=== PATIENT | male | born 1945 | race Caucasian/White ===

== ENCOUNTER 2021-03-27 09:08 | Day surgery (SDC) | payer OTHER ==
[2021-03-25 13:52] LABS: Absolute Lymphocytes (CBC) 1.6 K/uL (0.7-4.9); Basophils % 0.6 % (0-1.3); Hematocrit 40.5 % (39.6-49.0); Lymphocytes % 18.9 % (15.3-44.8); MPV 8.2 fL (7.6-11.3); RBC Red Blood Cell Count 4.66 M/uL (4.33-5.43)
[2021-03-25 14:04] LABS: Protime INR 1.01
--- NOTE | 2021-03-25 14:12 | RAD REPORT ---
EXAM DESCRIPTION: RAD - Chest Pa And Lat (2 Views) - 03/25/2021 1:59 pm CLINICAL HISTORY: pre-op procedure Chest pain. COMPARISON: ABDOMEN 1 VIEW KUB dated 07/13/2012 FINDINGS: The lungs are clear. The heart is normal in size. No displaced fractures. Mild aortic athe rosclerosis. IMPRESSION: No acute or concerning finding suspected.
[2021-03-25 14:58] LABS: Potassium 3.7 mmol/L (3.5-5.1)
--- NOTE | 2021-03-27 07:47 | EKG ---
Test Date: 2021-03-25 Test Time: 12:38:54 Spar Cap Beveler: JANETTE MEASUREMENT RESULTS: Intervals: Rate: 75 NE: 170 QRSD: 88 QT: 372 QTc: 415 [place]: P: 21 NE: 170 QRS: -18 T: -12 INTERPRETIVE STATEMENTS: Sinus rhythm with fusion complexes Otherwise normal ECG Compared to ECG 03/25/2021 12:36:05 Fusion complex(es) now present Right-axis deviation no longer present Electronically Signed On 03-27-21 07:44:25 CDT by Wil Hooks
[2021-03-27] MEDS ORDERED: NA CHLORIDE 0.9% 500 ML ONE (10:02)
[2021-03-27] MEDS ORDERED: LIDOCAINE 1% 20 ML MDV ONE (10:29)
[2021-03-27] MEDS ORDERED: HEPA 1000U/500MLS 2,000 UNIT/1,000 ML BAG IV ONE (10:29)
[2021-03-27] MEDS ORDERED: ATROPINE SULF 1 MG/10 ML SYR IV ONE (10:32)
[2021-03-27] MEDS ORDERED: FENTANYL CITR 100 MCG/2 ML ONE (10:32)
[2021-03-27] MEDS ORDERED: MIDAZOLAM HCL 2 MG/2 ML INJ ONE (10:32)
[2021-03-27] MEDS ORDERED: NA CHLORIDE 0.9% 0 ML ONE (10:32)
[2021-03-27 11:38] VITALS: TEMP 97
[2021-03-27] MEDS ORDERED: HEPARIN/D5W 25,000 UNIT/500 ML BAG IV SCH (14:00)
[2021-03-27 14:31] VITALS: O2SAT 99
[2021-03-27 14:46] VITALS: BP 99/55
--- NOTE | 2021-03-27 21:47 | OP ---
Surgeon: Wil Hooks MD Production Engine Repairer: Mr. Beto Hylton. 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 The patient was admitted for left heart catheterization and selective coronary arteriogram. Indication: coronary artery disease, positive stress test, unstable angina. Procedure In Detail: The patient was prepped and draped in the routine sterile fashion. Given Verse d for sedation. A 6-Niuean sheath introduced in the right common femoral artery successfully. Angio graphy there was normal. StarClose was used to close the procedure. Holly catheter left and right were used to cannulate the left main and right main respectively. He was codominant. The circumfle x had a mid 70% stenosis right after the OM. He had a 90% mid RCA. He had a 95% ostial left main wi th a lot of calcification. There were no complications. Blood Loss: 5 mL. Postoperative Diagnosis: Severe coronary artery disease. Plan: For CABG. Anesthesia: Total conscious sedation 45 minutes. The patient will remain in the hospital now for 2 hours. I am going to try to transfer him to [place] for bypass hopefully either today or Tuesday. VALENTIN/QUINN Voice ID: [id number] Report ID: [id number]
== END 2021-03-27 14:50 | disposition short-term general hospital (02) ==
LOC: CCL 09:08
DX: I25.110 Atherosclerotic heart disease of native coronary artery with unstable angina pectoris (principal); I65.23 Occlusion and stenosis of bilateral carotid arteries; I35.1 Nonrheumatic aortic (valve) insufficiency; I51.7 Cardiomegaly; I10 Essential (primary) hypertension; E78.2 Mixed hyperlipidemia; N40.0 Benign prostatic hyperplasia without lower urinary tract symptoms; Z20.822 Contact with and (suspected) exposure to COVID-19; Z88.8 Allergy status to other drugs, medicaments and biological substances; Z82.49 Family history of ischemic heart disease and other diseases of the circulatory system
CPT/HCPCS: 93005 ×2; 85025; 80048; 36415; 85610; 85730; 71046; 93454; U0003; C1893; J2250; J3010; J7040; J1644 ×2; J0583

== ENCOUNTER 2021-06-16 08:48 | Day surgery (SDC) | payer OTHER ==
[2021-06-12 11:15] LABS: Hematocrit 35.7 % (39.6-49.0); Lymphocytes % 21.8 % (15.3-44.8); MPV 7.1 fL (7.6-11.3); RBC Red Blood Cell Count 4.67 M/uL (4.33-5.43)
[2021-06-12 11:20] LABS: Protime INR 1.06
[2021-06-12 11:40] LABS: Potassium 4.2 mmol/L (3.5-5.1)
[2021-06-16] MEDS ORDERED: Ringers Lactate 1,000 ML IV ONE (09:12)
[2021-06-16] MEDS ORDERED: CEFAZOLIN/SWI 2gm 2 GM/20 ML SYR ONE (09:13)
[2021-06-16] MEDS ORDERED: ACETAMINOPHEN 500 MG TAB ONE (09:34)
[2021-06-16] MEDS ORDERED: ACETAMINOPHEN 500 MG TAB PO ONE (09:34)
[2021-06-16] MEDS ORDERED: MIDAZOLAM HCL 2 MG/2 ML INJ ONE (10:25)
[2021-06-16] MEDS ORDERED: dexAMETHasone 10 MG/ML VIAL ONE (10:25)
[2021-06-16] MEDS ORDERED: LIDOCAINE 1% MPF 5 ML VIAL ONE (10:25)
[2021-06-16] MEDS ORDERED: propofoL 200 MG/20 ML VIAL IV ONE (10:25)
[2021-06-16] MEDS ORDERED: FENTANYL CITR 100 MCG/2 ML ONE (10:29)
[2021-06-16] MEDS ORDERED: EPHEDRINE SULF 50 MG/ML VIAL ONE (11:21)
[2021-06-16] MEDS ORDERED: GENTAMICIN SULF 80 MG/2ML INJ ONE (11:28)
[2021-06-16] MEDS ORDERED: GENTAMICIN 100 MG/100 ML BAG 100 ML IV ONE (11:28)
[2021-06-16] MEDS ORDERED: PHENAZOPYRIDINE 100MG TAB PO ONE (12:18)
[2021-06-16] MEDS ORDERED: CODEINE 30MG/APAP 300MG TAB PO PRN (12:18)
--- NOTE | 2021-06-16 12:23 | P.OP ---
Preoperative diagnosis: BPH with LUTS and Acute Urinary Retention Postoperative diagnosis: same Primary procedure: Prostatic Urethral Lift/UroLift Secondary procedure: Cystoscopy Anesthesia: LMA general Estimated blood loss: <5cc Operative Technique: The patient was consented in the preoperative holding area before being transferred to the operative suite where general anesthesia was induced. He was given Ancef 2 g IV antimicrobial prophylaxis and pneumo boots were provided for DVT prophylaxis. He was placed in the high lithotomy position, padded and secured to the table appropriately. His genitalia were prepped using Hibiclens and draped in standard fashion. The case was begun using a 20-Yoruba specially designed cystoscope for the prostatic urethral lift as well as visual obturator to traverse the urethra and enter the bladder. The bladder was briefly surveyed, and no mucosal lesions, foreign bodies or stones were noted throughout. The prostatic urethral lumen was assessed and the previously noted lateral lobar hypertrophy left greater than right was again visualized. The visual obturator bridge was then replaced with a UroLift delivery device. The first treatment was placed on the patient's left side approximately 2.0 cm distal to the bladder neck. The distal tip of the delivery device was then angled laterally approximately 20 degrees to compress the lateral lobe. The trigger was pulled, thereby deploying a needle containing the implant through the prostate. There was no evidence of pelvic contact at this point. The needle was then retracted, allowing 1 end of the implant to be delivered to the capsular surface of the prostate. The implant was then tensioned to assure capsular seating and removal of slack monofilament. The device was then angled back toward the midline and slowly was advanced approximately 3-4 mm until cystoscopic verification of the monofilament being centered in the delivery bay. The urethral end piece was then affixed to the monofilament and thereby tailoring the size of the implant. The excess filament was then severed. The device was then readvanced into the bladder. The sheath was left in place and the delivery device was then replaced with the cystoscope and bridge, and the implant location and opening affect were confirmed cystoscopically. The procedure was then repeated again on the right side approximately 1.5 to 2 cm from the bladder neck, and implant was placed symmetrically there. I then turned my attention again to the left side distally more at the level of the verumontanum and an additional implant was placed there. I then turned my attention to the right side of the prostate and delivered an implant at the level of the verumontanum on the right side. The cystoscope was then readvanced into the bladder and the channel was surveyed. There was still some lateral lobar hypertrophy in the mid gland region, and so a fifth implant was placed in the mid gland on the left to address that tissue. An implant was placed on the right side in the mid gland contralateral. In the end, lateral lobar compression apically and within the mid zone of the prostate was excellent, and an open channel from the Veru through to the bladder neck was achieved. Final cystoscopy inspected the location and state of each implant and confirmed the presence of a continuous anterior channel. I then left the bladder full and placed an 18-Yoruba coude tipped catheter into his bladder with ease. 15 cc of sterile water was placed in the balloon. The catheter was connected to a floor bag, and the patient was taken out of the lithotomy position. He was then awakened from general anesthesia, transferred to a stretcher, and then transferred to the recovery room in good condition. Complications: None. Discharge Disposition: He should follow-up in the urology clinic on either or Tuesday, when I am next in the office, for active voiding trial in the morning. Because he had acute urinary retention and it is uncertain how well his bladder functions, we will want to ensure adequate voiding in his case. Subsequent follow up will be established in about 1 month's time to make an interval assessment of his symptomatology. Complications: None Drain(s): Other (Baker catheter) Implants: 6 Transferred to: Recovery Room Condition: Good
[2021-06-16 14:33] VITALS: O2SAT 100
[2021-06-16 14:34] VITALS: BP 147/71; TEMP 98
== END 2021-06-16 13:10 | disposition home or self-care (01) ==
LOC: OR 08:48
PROVIDERS: ATTEND Urology
PROC: 0T7D8DZ Dilation of Urethra with Intraluminal Device, Via Natural or Artificial Opening Endoscopic (ICD-10-PCS; principal; 2021-06-16 10:30)
DX: N40.1 Benign prostatic hyperplasia with lower urinary tract symptoms (principal); R33.9 Retention of urine, unspecified; Z20.822 Contact with and (suspected) exposure to COVID-19
CPT/HCPCS: 87088; 85025; 87086; 80048; 36415; 85610; 87077; 87186; 52441; 52442 ×4; U0003; J2704; J1580 ×2; J2250; J3010; J1100; J0690; J7120

== ENCOUNTER 2021-07-11 19:38 | Emergency (ER) | payer OTHER ==
--- OUTSIDE RECORDS SUMMARY | 2021-07-11 19:42 | XMS REPORT | Continuity of Care Document ---
:1945 Author Organization [facility] t Address [address] [place] [address] Care Team Providers Name Role Phone TODD CONROY Attending Clinician Unavailable CARLOS MANUEL APONTE Attending Clinician Unavailable FREDRICK NEAL Attending Clinician Unavailable A_José Attending Clinician Unavailable Alisia Attending Clinician Unavailable TODD CONROY Admitting Clinician Unavailable FREDRICK NEAL Admitting Clinician Unavailable A_José Admitting Clinician Unavailable Alisia Admitting Clinician Unavailable Payers Payer Name Policy Type Policy Number Effective Date Expiration Date Gaviota mancia [facility] [id number] 2020 00:00:00 [employer]ET[employer] [facility] [id number] 2021 SUPPLEMENTAL 00:00:00 [facility] [id number] [employer] (MEDICARE 00:00:00 REPLACEMENT/ADVANTAG E - HMO) A[employer] (MEDICARE [id number] SUPPLEMENT) Problems Condition Condition Condition Status Onset Resolution Last Treating Co mments Source Name Details Category Date Date Treatment Clinician Date Benign Benign Problem Active [facility] 9-08 da hypertensi Hypertensi 00:00: Me dical on on 00 Group Allergies, Adverse Reactions, Alerts Allergy Allergy Status Severity Reaction(s) Onset Inactive Treating Comm ents Source Name Type Date Date Clinician NO KNOWN Allergy Active [facility] Social History Smoking Status Start Date Stop Date Source Never Smoker [facility] Medications Ordered Filled Start Stop Current Ordering Indication Dosage Frequency Signature Comments Components Source Medication Medication Date Date Medication? Clinician (SIG) Name Name valsartan valsartan No valsartan [place] 80 mg 80 mg 80 mg da tablet TAKE tablet TAKE tablet Medical 1 TABLET BY 1 TABLET BY TAKE 1 Group MOUTH EVERY MOUTH EVERY TABLET BY DAY DAY MOUTH EVERY DAY amlodipine amlodipine No amlodipine [place] 10 mg 10 mg 10 mg da tablet TAKE tablet TAKE tablet Medical 1 TABLET BY 1 TABLET BY TAKE 1 Group MOUTH MOUTH TABLET BY EVERYDAY AT EVERYDAY AT MOUTH BEDTIME BEDTIME EVERYDAY AT BEDTIME hydrochloro hydrochloro No hydrochlor [facility] thiazide 25 thiazide 25 othiazide da mg tablet mg tablet 25 mg Medi shira TAKE ONE TAKE ONE tablet Group TABLET BY TABLET BY TAKE ONE MOUTH ONCE MOUTH ONCE TABLET BY A DAY. A DAY. MOUTH ONCE A DAY. metoprolol metoprolol No metoprolol [facility] succinate succinate succinate da ER 50 mg ER 50 mg ER 50 mg Med ical tablet,exte tablet,exte tablet,ext Group nded nded ended release 24 release 24 release 24 hr TAKE 1 hr TAKE 1 hr TAKE 1 TABLET BY TABLET BY TABLET BY MOUTH EVERY MOUTH EVERY MOUTH DAY DAY EVERY DAY tamsulosin tamsulosin No tamsulosin [facility] 0.4 mg 0.4 mg 0.4 mg da capsule capsule capsule Medica l TAKE TWO TAKE TWO TAKE TWO Jazzy up (2) (2) (2) CAPSULE(S) CAPSULE(S) CAPSULE(S) BY MOUTH BY MOUTH BY MOUTH ONCE A DAY. ONCE A DAY. ONCE A DAY. Immunizations Ordered Immunization Filled Immunization Date Status Commen ts Source Name Name COVID-19, mRNA, COVID-19, mRNA, 2020-08-01 Completed Almazan lara LNP-S, PF, 100 LNP-S, PF, 100 00:00:00 [facility]ica l Group mcg/0.5 mL dose mcg/0.5 mL dose COVID-19, mRNA, COVID-19, mRNA, 2020-07-04 Completed Almazan lara LNP-S, PF, 100 LNP-S, PF, 100 00:00:00 [facility]ica l Group mcg/0.5 mL dose mcg/0.5 mL dose Vital Signs Vital Name Observation Time Observation Value Comments Source HEIGHT 2021-04-14 09:16:00 185.4 cm WEIGHT 2021-04-14 09:16:00 86.637 kg WEIGHT 2021-04-03 10:37:00 85.446 kg WEIGHT 2021-04-02 03:35:00 85.322 kg WEIGHT 2021-04-01 06:00:00 90 kg HEIGHT 2021-03-27 16:45:00 185.4 cm WEIGHT 2021-03-27 16:45:00 81.647 kg WEIGHT 2021-04-03 10:37:00 85.446 kg WEIGHT 2021-04-02 03:35:00 85.322 kg WEIGHT 2021-04-01 06:00:00 90 kg HEIGHT 2021-03-27 16:45:00 185.4 cm WEIGHT 2021-03-27 16:45:00 81.647 kg BP Diastolic 2021-02-04 00:00:00 76 mm[Hg] [facility] Height 2021-02-04 00:00:00 70 [in_i] [facility] BMI (Body Mass 2021-02-04 00:00:00 27.5 kg/m2 [facility] BP Systolic 2021-02-04 00:00:00 131 mm[Hg] [facility] Body Weight 2021-02-04 00:00:00 3070.4 [oz_av] [facility] Procedures This patient has no known procedures. Plan of Care Planned Activity Planned Date Details Comments Source Future Appointment 2022-02-04 [facility] [address]; , [place] [address] Encounters Start End Encounter Admission Attending Care Care Encounter Source Date/Time Date/Time Type Type Clinicians Facility Department ID 2021-07-06 [facility] [id number] [facility]03[facility] 2021[facility]06-24 [facility] [id number] [facility] [address] 14[facility]34[facility]42 [facility] 2021-06-24 [facility] [id number] [facility] 14[facility]30[facility]15 [facility] 2021-06-24 [facility] [id number] [facility] [address] 14:23:10 [id number] [facility] 2021-06-24 [facility] [id number] [facility] 14:12:04 [id number] [facility] 2021-03-27 Inpatient MAURO CONROY [facility] Surgery [id number] [facility] 13:15:59 [facility] 2021-06-29 2021-06-29 ambulatory [facility] [id number] [facility] 2021-06-26 2021-06-26 ambulatory [facility] [id number] [facility] 2021-06-26 2021-06-26 ambulatory [facility] [id number] [facility] 2021-06-18 2021-06-18 ambulatory [facility] [id number] [facility] 2021-06-05 2021-06-05 ambulatory [facility] [id number] [facility] 2021-05-28 2021-05-28 ambulatory [facility] [id number] [facility] 2021-05-18 2021-05-18 ambulatory [facility] [id number] [facility] 2021-05-07 2021-05-07 ambulatory [facility] [id number] [facility] 2021-04-14 2021-04-14 Outpatient MAURO CONROY [facility] [id number] [facility] 09:09:29 09:09:29 [facility] 2021-03-27 2021-04-04 Inpatient [facility] Cardiology [id number] [facility] 16:02:00 10:43:00 NIMISHA 2021-03-27 2021-03-27 Outpatient [facility] [id number] 16[facility]02:00 [facility]59[facility] 2021-03-27 2021-03-27 [facility] [id number] 00:00:00 16:01:00 [facility] 2021-02-04 2021-02-04 Outpatient A_Byrd [facility] [id number] [facility] 09:20:00 09:20:00 0908 Medical Group 2021-02-04 2021-02-04 [facility] [id number] [facility] 09:05:00 09:05:00 0112 [facility] 2021-02-04 2021-02-04 Juan Pablo Neumann [facility] [place] - [id number] M [facility] 00:00:00 00:00:00 MD José: [address] [facility] - [address], [facility], [facility] [place] [address] , Ph. 2020-06-21 2020-06-21 Outpatient A_Byrd [facility] [id number] [facility] 12:03:00 12:03:00 0123 Medical [facility] 2020-06-21 2020-06-21 Outpatient A_Byrd [facility] [id number] [facility] 12:03:00 12:03:00 0208 Medical Group 2020-06-12 2020-06-12 Outpatient Obisesan_ad [facility] [id number] [facility] 07:14:00 07:14:00 ekunbi 20390 [facility] h Program Results Test Description Test Time Test Comments Results Result Comments Source BASIC METABOLIC PANEL 2021-04-04 07:28:19 Test Item Value Reference Range Interpretation Comme nts SODIUM (BEAKER) (test code 135 meq/L 136-145 L = 381) POTASSIUM (BEAKER) (test 3.3 meq/L 3.5-5.1 L code = 379) CHLORIDE (BEAKER) (test 104 meq/L 98-107 code = 382) CO2 (BEAKER) (test code = 22 meq/L 22-29 355) BLOOD UREA NITROGEN 23 mg/dL 7-21 H (BEAKER) (test code = 354) CREATININE (BEAKER) (test 0.92 mg/dL 0.57-1.25 code = 358) GLUCOSE RANDOM (BEAKER) 154 mg/dL 70-105 H (test code = 652) CALCIUM (BEAKER) (test code 7.9 mg/dL 8.4-10.2 L = 697) EGFR (BEAKER) (test code = 80 mL/min/1.73 sq m ESTIMATED GFR IS NOT 1092) ACCURATE CRE ATININE CLEARANCE IN IN EDICTING GLOMERULAR FILT RATION RATE. ESTIMATED GFR IS NOT APPLICABLE FOR DIALYSIS PATIENTS. Perishable Fruit Inspector ID - PIAYA LCBC W/PLT COUNT & AUTO [id number] 07:08:10 Test Item Value Reference Range Interpretation Comments WHITE BLOOD CELL COUNT (BEAKER) 8.1 K/ L 3.5-10.5 (test code = 775) RED BLOOD CELL COUNT (BEAKER) 2.65 M/ L 4.63-6.08 L (test code = 761) HEMOGLOBIN (BEAKER) (test code = 7.9 GM/DL 13.7-17.5 L 410) HEMATOCRIT (BEAKER) (test code = 24.1 % 40.1-51.0 L 411) MEAN CORPUSCULAR VOLUME (BEAKER) 90.9 fL 79.0-92.2 (test code = 753) MEAN CORPUSCULAR HEMOGLOBIN 29.8 pg 25.7-32.2 (BEAKER) (test code = 751) MEAN CORPUSCULAR HEMOGLOBIN CONC 32.8 GM/DL 32.3-36.5 (BEAKER) (test code = 752) RED CELL DISTRIBUTION WIDTH 14.5 % 11.6-14.4 H (BEAKER) (test code = 412) PLATELET COUNT (BEAKER) (test 205 K/CU MM 150-450 code = 756) MEAN PLATELET VOLUME (BEAKER) 10.3 fL 9.4-12.4 (test code = 754) NUCLEATED RED BLOOD CELLS 0 /100 WBC 0-0 (BEAKER) (test code = 413) NEUTROPHILS RELATIVE PERCENT 79 % (BEAKER) (test code = 429) LYMPHOCYTES RELATIVE PERCENT 11 % (BEAKER) (test code = 430) MONOCYTES RELATIVE PERCENT 7 % (BEAKER) (test code = 431) EOSINOPHILS RELATIVE PERCENT 2 % (BEAKER) (test code = 432) BASOPHILS RELATIVE PERCENT 1 % (BEAKER) (test code = 437) NEUTROPHILS ABSOLUTE COUNT 6.44 K/ L 1.78-5.38 H (BEAKER) (test code = 670) LYMPHOCYTES ABSOLUTE COUNT 0.86 K/ L 1.32-3.57 L (BEAKER) (test code = 414) MONOCYTES ABSOLUTE COUNT (BEAKER) 0.54 K/ L 0.30-0.82 (test code = 415) EOSINOPHILS ABSOLUTE COUNT 0.14 K/ L 0.04-0.54 (BEAKER) (test code = 416) BASOPHILS ABSOLUTE COUNT (BEAKER) 0.04 K/ L 0.01-0.08 (test code = 417) IMMATURE GRANULOCYTES-RELATIVE 1 % 0-1 PERCENT (BEAKER) (test code = 2801) RAD, CHEST, 1 VIEW, NON [id number] 06:56:00Reason for exam:->post CT surgeryShould this be performed at the bedside?->Yes [facility] 1945 Sex: MFINAL REPORT RAD, CHEST, 1 VIEW, NON DEPT INDICATION: post CT surgery COMPARISON: Prior day's exam FINDINGS: Portable frontal view of the chest. IMPRESSION: Support Lines: Sternotomy wires Lungs and pleura: Small left effusion and left basilar atelectasis No significantpneumothorax. Heart and mediastinum: Stable contours. Additional findings: None. Signed: Ramon Mcfarland MDReport Verified Date/Time: 04/04/2021 06:56:16 SARS-COV2/RT-PCR ([facility])2021-04-04 06:09:44 Test Item Value Reference Range Interpretation Comments SARS-COV2/RT-PCR (test code = Negative Negative [id number]) Negative result for this test determines that SARS-CoV-2 RNA was not present in the specimen above the Limit of Detection (LOD). However, Negative results do not preclude SARS-CoV-2 infection and should not be used as the sole basis for treatment or patient management decisions. Negative results must be combined with clinical observations, patient history, and epidemiological information. A false negative result may occur if a specimen is improperly collected, transported, or handled. A false negative result should be considered if patient's recent exposures or clinical presentation indicate that COVID-19 (SARS-CoV-2) is likely and diagnostic tests for other causes of illness are negative. Re-testing should be considered in cases of suspected false negatives.The limit of detection for this assay is 100 copies/mL.This SARS-CoV-2 test is a real-time RT_PCR test intended for the qualitative detection of nucleic acid from SARS-CoV-2 in a nasopharyngeal swab specimen collected from individuals suspected of COVID-19 by their healthcare provider.This test has not been Food and Drug Administration (FDA) cleared or approved. This is a modified version of an approved Emergency Use Authorization (EUA) and is in the process of review by the FDA. Once authorized by the FDA, the issued EUA will be effective until the declaration that circumstances exist justifying the authorization of the emergency use of in vitro diagnostic tests for detection and/or diagnosis of COVID-19 is terminated under Section 564(b)(2) of the Act or the EUA is revoked under Section 564(g) of the Act.Testing was performedusing the Zepeda SARS-CoV-2 assay.Fact Sheet for Healthcare Providers:https://www.Interfolio.zepeda/la/RT SARS-CoV-2 HCP Fact Sheet 51- 782035.pdfFact Sheet for Healthcare Patients:https://www.Interfolio.zepeda/la/RT SARS-CoV-2 Patient Fact Sheet EN 51-692932H5.pdfBASAINT ELIZAB[facility] [id number] 06:50:46 Test Item Value Reference Range Interpretation Comments SODIUM (BEAKER) 134 meq/L 136-145 L (test code = 381) POTASSIUM (BEAKER) 4.2 meq/L 3.5-5.1 (test code = 379) CHLORIDE (BEAKER) 104 meq/L 98-107 (test code = 382) CO2 (BEAKER) (test 21 meq/L 22-29 L code = 355) BLOOD UREA NITROGEN 22 mg/dL 7-21 H (BEAKER) (test code = 354) CREATININE (BEAKER) 0.96 mg/dL 0.57-1.25 (test code = 358) GLUCOSE RANDOM 112 mg/dL 70-105 H (BEAKER) (test code = 652) CALCIUM (BEAKER) 8.5 mg/dL 8.4-10.2 (test code = 697) EGFR (BEAKER) (test 76 mL/min/1.73 ESTIMA ZAINAB GFR IS code = 1092) sq m NOT ACCURATE CREATININE CLEARANCE IN PREDICTING GLOMERULAR FILTRATION RATE . ESTIMATED GFR I S NOT APPLICABLE FOR DIALYSIS PATIEN TS. Perishable Fruit Inspector ID - WARD WCBC W/PLT COUNT & AUTO [id number] 06:45:05 Test Item Value Reference Range Interpretation Comments WHITE BLOOD CELL COUNT (BEAKER) 11.3 K/ L 3.5-10.5 H (test code = 775) RED BLOOD CELL COUNT (BEAKER) 2.74 M/ L 4.63-6.08 L (test code = 761) HEMOGLOBIN (BEAKER) (test code = 8.3 GM/DL 13.7-17.5 L 410) HEMATOCRIT (BEAKER) (test code = 24.8 % 40.1-51.0 L 411) MEAN CORPUSCULAR VOLUME (BEAKER) 90.5 fL 79.0-92.2 (test code = 753) MEAN CORPUSCULAR HEMOGLOBIN 30.3 pg 25.7-32.2 (BEAKER) (test code = 751) MEAN CORPUSCULAR HEMOGLOBIN CONC 33.5 GM/DL 32.3-36.5 (BEAKER) (test code = 752) RED CELL DISTRIBUTION WIDTH 14.2 % 11.6-14.4 (BEAKER) (test code = 412) PLATELET COUNT (BEAKER) (test 183 K/CU MM 150-450 code = 756) MEAN PLATELET VOLUME (BEAKER) 10.3 fL 9.4-12.4 (test code = 754) NUCLEATED RED BLOOD CELLS 0 /100 WBC 0-0 (BEAKER) (test code = 413) NEUTROPHILS RELATIVE PERCENT 75 % (BEAKER) (test code = 429) LYMPHOCYTES RELATIVE PERCENT 14 % (BEAKER) (test code = 430) MONOCYTES RELATIVE PERCENT 9 % (BEAKER) (test code = 431) EOSINOPHILS RELATIVE PERCENT 1 % (BEAKER) (test code = 432) BASOPHILS RELATIVE PERCENT 0 % (BEAKER) (test code = 437) NEUTROPHILS ABSOLUTE COUNT 8.47 K/ L 1.78-5.38 H (BEAKER) (test code = 670) LYMPHOCYTES ABSOLUTE COUNT 1.53 K/ L 1.32-3.57 (BEAKER) (test code = 414) MONOCYTES ABSOLUTE COUNT (BEAKER) 0.98 K/ L 0.30-0.82 H (test code = 415) EOSINOPHILS ABSOLUTE COUNT 0.12 K/ L 0.04-0.54 (BEAKER) (test code = 416) BASOPHILS ABSOLUTE COUNT (BEAKER) 0.03 K/ L 0.01-0.08 (test code = 417) IMMATURE GRANULOCYTES-RELATIVE 1 % 0-1 PERCENT (BEAKER) (test code = 2801) CALCIUM, [id number] 06:34:06 Test Item Value Reference Range Interpretation Comments CALCIUM IONIZED (BEAKER) (test 1.10 mmol/L 1.12-1.27 L code = 698) PH, BLOOD (BEAKER) (test code = 7.40 1810) RAD, CHEST, 1 VIEW, NON [id number] 05:00:00Reason for exam:->post CT surgeryShould this be performed at the bedside?->Yes [facility] 1945 Sex: MFINAL REPORT CLINICAL INDICATION: Postop Comparison: 04/02/2021 The cardiomediastinal contours are stable. The lung volumes are mainly low. Left greater than right and left pleural opacities are similar to previous. There is no pneumothorax. A left chest tube has been removed. Signed: Ross Galdamez Verified Date/Time: 04/03/2021 05:00:14 RAD, CHEST, 1 VIEW, NON DEPT 2021-04-02 08:29:00Reason for exam:->post CT surgeryShould this be performed at the bedside?->Yes [facility] : 1945 Sex: MFINAL REPORT CLINICAL HISTORY: post CT surgery TECHNIQUE: 1 view of the chest. COMPARISON: 04/01/2021 IMPRESSION: The lines and tubes have been removed except for one left chest tube. There is a small left apical pneumothorax, new or increased from before. Mild bilateral lung opacities are unchanged. The cardiomediastinal silhouette is magnified by technique with sternotomywires. Signed: Michelle Stewart Verified Date/Time: 04/02/2021 08:29:40 Reading Location: [facility] Radiology Reading Room MAGNESIUM 2021-04-02 05:18:38 Test Item Value Reference Range Interpretation Comments MAGNESIUM (BEAKER) (test code = 2.0 mg/dL 1.6-2.6 627) Perishable Fruit Inspector ID Erik STOKES [id number] 05:18:38 Test Item Value Reference Range Interpretation Comments PHOSPHORUS (BEAKER) (test code = 2.4 mg/dL 2.3-4.7 604) Perishable Fruit Inspector ID - KIKE MBASIC METABOLIC [id number] 05:18:37 Test Item Value Reference Range Interpretation Comments SODIUM (BEAKER) 134 meq/L 136-145 L (test code = 381) POTASSIUM (BEAKER) 3.8 meq/L 3.5-5.1 (test code = 379) CHLORIDE (BEAKER) 105 meq/L 98-107 (test code = 382) CO2 (BEAKER) (test 19 meq/L 22-29 L code = 355) BLOOD UREA NITROGEN 18 mg/dL 7-21 (BEAKER) (test code = 354) CREATININE (BEAKER) 1.10 mg/dL 0.57-1.25 (test code = 358) GLUCOSE RANDOM 126 mg/dL 70-105 H (BEAKER) (test code = 652) CALCIUM (BEAKER) 8.3 mg/dL 8.4-10.2 L (test code = 697) EGFR (BEAKER) (test 65 mL/min/1.73 ESTIMA ZAINAB GFR IS code = 1092) sq m NOT ACCURATE CREATININE CLEARANCE IN PREDICTING GLOMERULAR FILTRATION RATE . ESTIMATED GFR I S NOT APPLICABLE FOR DIALYSIS PATIEN TS. Perishable Fruit Inspector ID Erik STOKES MCALCIUM, [id number] 05:12:48 Test Item Value Reference Range Interpretation Comments CALCIUM IONIZED (BEAKER) (test 1.07 mmol/L 1.12-1.27 L code = 698) PH, BLOOD (BEAKER) (test code = 7.41 1810) CBC W/PLT COUNT & AUTO [id number] 04:49:12 Test Item Value Reference Range Interpretation Comments WHITE BLOOD CELL COUNT (BEAKER) 12.3 K/ L 3.5-10.5 H (test code = 775) RED BLOOD CELL COUNT (BEAKER) 2.96 M/ L 4.63-6.08 L (test code = 761) HEMOGLOBIN (BEAKER) (test code = 8.9 GM/DL 13.7-17.5 L 410) HEMATOCRIT (BEAKER) (test code = 26.3 % 40.1-51.0 L 411) MEAN CORPUSCULAR VOLUME (BEAKER) 88.9 fL 79.0-92.2 (test code = 753) MEAN CORPUSCULAR HEMOGLOBIN 30.1 pg 25.7-32.2 (BEAKER) (test code = 751) MEAN CORPUSCULAR HEMOGLOBIN CONC 33.8 GM/DL 32.3-36.5 (BEAKER) (test code = 752) RED CELL DISTRIBUTION WIDTH 14.2 % 11.6-14.4 (BEAKER) (test code = 412) PLATELET COUNT (BEAKER) (test 167 K/CU MM 150-450 code = 756) MEAN PLATELET VOLUME (BEAKER) 10.2 fL 9.4-12.4 (test code = 754) NUCLEATED RED BLOOD CELLS 0 /100 WBC 0-0 (BEAKER) (test code = 413) NEUTROPHILS RELATIVE PERCENT 84 % (BEAKER) (test code = 429) LYMPHOCYTES RELATIVE PERCENT 6 % (BEAKER) (test code = 430) MONOCYTES RELATIVE PERCENT 9 % (BEAKER) (test code = 431) EOSINOPHILS RELATIVE PERCENT 0 % (BEAKER) (test code = 432) BASOPHILS RELATIVE PERCENT 0 % (BEAKER) (test code = 437) NEUTROPHILS ABSOLUTE COUNT 10.27 K/ L 1.78-5.38 H (BEAKER) (test code = 670) LYMPHOCYTES ABSOLUTE COUNT 0.71 K/ L 1.32-3.57 L (BEAKER) (test code = 414) MONOCYTES ABSOLUTE COUNT (BEAKER) 1.12 K/ L 0.30-0.82 H (test code = 415) EOSINOPHILS ABSOLUTE COUNT 0.01 K/ L 0.04-0.54 L (BEAKER) (test code = 416) BASOPHILS ABSOLUTE COUNT (BEAKER) 0.05 K/ L 0.01-0.08 (test code = 417) IMMATURE GRANULOCYTES-RELATIVE 1 % 0-1 PERCENT (BEAKER) (test code = 2801) MISCELLANEOUS LAB [id number] 08:24:47 Test Item Value Reference Range Interpretation Comments SCAN RESULT (test code = 6810855) See scanned [id number] 04:41:02 Test Item Value Reference Range Interpretation Comments PHOSPHORUS (BEAKER) (test code = 3.4 mg/dL 2.3-4.7 604) Perishable Fruit Inspector ID Erik STOKES MBASIC METABOLIC [id number] 04:41:01 Test Item Value Reference Range Interpretation Comments SODIUM (BEAKER) 134 meq/L 136-145 L (test code = 381) POTASSIUM (BEAKER) 4.2 meq/L 3.5-5.1 (test code = 379) CHLORIDE (BEAKER) 110 meq/L 98-107 H (test code = 382) CO2 (BEAKER) (test 16 meq/L 22-29 L code = 355) BLOOD UREA NITROGEN 15 mg/dL 7-21 (BEAKER) (test code = 354) CREATININE (BEAKER) 0.81 mg/dL 0.57-1.25 (test code = 358) GLUCOSE RANDOM 123 mg/dL 70-105 H (BEAKER) (test code = 652) CALCIUM (BEAKER) 8.0 mg/dL 8.4-10.2 L (test code = 697) EGFR (BEAKER) (test 93 mL/min/1.73 ESTIMA ZAINAB GFR IS code = 1092) sq m NOT ACCURATE CREATININE CLEARANCE IN PREDICTING GLOMERULAR FILTRATION RATE . ESTIMATED GFR I S NOT APPLICABLE FOR DIALYSIS PATIEN TS. Perishable Fruit Inspector ID - KIKE [id number] 04:41:01 Test Item Value Reference Range Interpretation Comments MAGNESIUM (BEAKER) (test code = 2.2 mg/dL 1.6-2.6 627) Perishable Fruit Inspector ID - KIKE MRAD, CHEST, 1 VIEW, NON [id number] 04:22:00while patient is intubated or has chest tubes.Reason for exam:->Status post CV SurgeryShould thisbe performed at the bedside?->Yes [facility] 1945 Sex: MFINAL REPORT RAD, CHEST, 1 VIEW, NON DEPT INDICATION: Status post CV Surgery COMPARISON: Prior day's exam FINDINGS: Portable frontal view of the chest. IMPRESSION: Support Lines: Interval extubation and removal the previously seen enteric tube. Otherwise unchanged support apparatus. Lungs and pleura: Decreased lung volumes with increased bandlike airspace opacities likely reflect worsening atelectasis. Small bilateral pleural effusions. No pneumothorax.Heart and mediastinum: Stable contours. Stable surgical changes.Additional findings: Gaseous distention of the large bowel the abdomen is incompletely characterized on this examination.. Signed: Fahad Guerrero Verified Date/Time: 04/01/2021 04:22:11 CBC W/PLT COUNT & AUTO [id number] 04:15:58 Test Item Value Reference Range Interpretation Comments WHITE BLOOD CELL COUNT (BEAKER) 10.5 K/ L 3.5-10.5 (test code = 775) RED BLOOD CELL COUNT (BEAKER) 3.03 M/ L 4.63-6.08 L (test code = 761) HEMOGLOBIN (BEAKER) (test code = 9.0 GM/DL 13.7-17.5 L 410) HEMATOCRIT (BEAKER) (test code = 27.4 % 40.1-51.0 L 411) MEAN CORPUSCULAR VOLUME (BEAKER) 90.4 fL 79.0-92.2 (test code = 753) MEAN CORPUSCULAR HEMOGLOBIN 29.7 pg 25.7-32.2 (BEAKER) (test code = 751) MEAN CORPUSCULAR HEMOGLOBIN CONC 32.8 GM/DL 32.3-36.5 (BEAKER) (test code = 752) RED CELL DISTRIBUTION WIDTH 14.2 % 11.6-14.4 (BEAKER) (test code = 412) PLATELET COUNT (BEAKER) (test 155 K/CU MM 150-450 code = 756) MEAN PLATELET VOLUME (BEAKER) 10.0 fL 9.4-12.4 (test code = 754) NUCLEATED RED BLOOD CELLS 0 /100 WBC 0-0 (BEAKER) (test code = 413) NEUTROPHILS RELATIVE PERCENT 78 % (BEAKER) (test code = 429) LYMPHOCYTES RELATIVE PERCENT 10 % (BEAKER) (test code = 430) MONOCYTES RELATIVE PERCENT 11 % (BEAKER) (test code = 431) EOSINOPHILS RELATIVE PERCENT 0 % (BEAKER) (test code = 432) BASOPHILS RELATIVE PERCENT 0 % (BEAKER) (test code = 437) NEUTROPHILS ABSOLUTE COUNT 8.15 K/ L 1.78-5.38 H (BEAKER) (test code = 670) LYMPHOCYTES ABSOLUTE COUNT 1.03 K/ L 1.32-3.57 L (BEAKER) (test code = 414) MONOCYTES ABSOLUTE COUNT (BEAKER) 1.16 K/ L 0.30-0.82 H (test code = 415) EOSINOPHILS ABSOLUTE COUNT 0.02 K/ L 0.04-0.54 L (BEAKER) (test code = 416) BASOPHILS ABSOLUTE COUNT (BEAKER) 0.02 K/ L 0.01-0.08 (test code = 417) IMMATURE GRANULOCYTES-RELATIVE 1 % 0-1 PERCENT (BEAKER) (test code = 2801) CALCIUM, [id number] 03:51:29 Test Item Value Reference Range Interpretation Comments CALCIUM IONIZED (BEAKER) (test 1.11 mmol/L 1.12-1.27 L code = 698) PH, BLOOD (BEAKER) (test code = 7.46 1810) BASIC METABOLIC [id number] 20:39:03 Test Item Value Reference Range Interpretation Comments SODIUM (BEAKER) 136 meq/L 136-145 (test code = 381) POTASSIUM (BEAKER) 4.2 meq/L 3.5-5.1 (test code = 379) CHLORIDE (BEAKER) 111 meq/L 98-107 H (test code = 382) CO2 (BEAKER) (test 16 meq/L 22-29 L code = 355) BLOOD UREA NITROGEN 15 mg/dL 7-21 (BEAKER) (test code = 354) CREATININE (BEAKER) 0.87 mg/dL 0.57-1.25 (test code = 358) GLUCOSE RANDOM 142 mg/dL 70-105 H (BEAKER) (test code = 652) CALCIUM (BEAKER) 7.6 mg/dL 8.4-10.2 L (test code = 697) EGFR (BEAKER) (test 86 mL/min/1.73 ESTIMA ZAINAB GFR IS code = 1092) sq m NOT ACCURATE CREATININE CLEARANCE IN PREDICTING GLOMERULAR FILTRATION RATE . ESTIMATED GFR I S NOT APPLICABLE FOR DIALYSIS PATIEN TS. Perishable Fruit Inspector ID - [id number] 20:35:11 Test Item Value Reference Range Interpretation Comments MAGNESIUM (BEAKER) (test code = 1.9 mg/dL 1.6-2.6 627) Perishable Fruit Inspector ID - ADMINPOCT-GLUCOSE [id number] 20:18:09 Test Item Value Reference Range Interpretation Comments POC-GLUCOSE METER 109 mg/dL 70-110 : Notified RN/MD: (BEAKER) (test code = TESTED AT [facility] 6720 1532) [facility], [address]: Perishable Fruit Inspector/Techni shanta ID = [id number] for Misa George CALCIUM, [id number] 20:13:59 Test Item Value Reference Range Interpretation Comments CALCIUM IONIZED (BEAKER) (test 1.08 mmol/L 1.12-1.27 L code = 698) PH, BLOOD (BEAKER) (test code = 7.42 1810) BLOOD GAS, [id number] 20:13:53 Test Item Value Reference Range Interpretation Comments PH ARTERIAL (BEAKER) (test code = 7.42 7.35-7.45 383) PCO2 ARTERIAL (BEAKER) (test code 31 mm Hg 35-45 L = 384) PO2 ARTERIAL (BEAKER) (test code 133 mm Hg 80-90 H = 385) O2 SATURATION ARTERIAL (BEAKER) 98.7 % 96.0-97.0 H (test code = 386) HCO3 ARTERIAL (BEAKER) (test code 19 mmol/L 21-29 L = 388) BASE EXCESS ARTERIAL (BEAKER) -4.5 mmol/L -2.0-3.0 L (test code = 387) PATIENT TEMPERATURE (BEAKER) 37.1 (test code = 1818) FIO2 (BEAKER) (test code = 1819) 36.0 RAD, CHEST, 1 VIEW, NON [id number] 13:35:00Reason for exam:->Status post CV Surgery post op day 0Should this be performed at the bedside?->Yes [facility] 1945 Sex: MFINAL REPORT CLINICAL HISTORY: Status post CV Surgery post op day 0 TECHNIQUE: 1 view of the chest. COMPARISON: 03/27/2021 IMPRESSION: The patient is status post median sternotomy with an endotracheal tube at the clavicles, a right central line at the cavoatrial junction, a nasogastric tube in the stomach, and left chest tubes. There is no pneumothorax. There is left perihilar and lower lung consolidation. There are no significant effusions. Signed: Michelle Stewart MDReport Verified Date/Time: 03/31/2021 13:35:56 Reading Location: [facility] Radiology Reading Room BLOOD GAS, [id number] 13:26:42 Test Item Value Reference Range Interpretation Comments PH ARTERIAL (BEAKER) (test code = 7.37 7.35-7.45 383) PCO2 ARTERIAL (BEAKER) (test code 36 mm Hg 35-45 = 384) PO2 ARTERIAL (BEAKER) (test code 146 mm Hg 80-90 H = 385) O2 SATURATION ARTERIAL (BEAKER) 98.9 % 96.0-97.0 H (test code = 386) HCO3 ARTERIAL (BEAKER) (test code 21 mmol/L 21-29 = 388) BASE EXCESS ARTERIAL (BEAKER) -4.5 mmol/L -2.0-3.0 L (test code = 387) PATIENT TEMPERATURE (BEAKER) 36.2 (test code = 1818) FIO2 (BEAKER) (test code = 1819) 40.0 [id number] 12:48:29 Test Item Value Reference Range Interpretation Comments PHOSPHORUS (BEAKER) (test code = 3.5 mg/dL 2.3-4.7 604) Perishable Fruit Inspector ID - KIKE [id number] 12:48:28 Test Item Value Reference Range Interpretation Comments MAGNESIUM (BEAKER) (test code = 2.0 mg/dL 1.6-2.6 627) Perishable Fruit Inspector ID - KIKE MBASIC METABOLIC [id number] 12:03:42 Test Item Value Reference Range Interpretation Comments SODIUM (BEAKER) 137 meq/L 136-145 (test code = 381) POTASSIUM (BEAKER) 4.8 meq/L 3.5-5.1 Specimen slightly (test code = 379) hemolyzed CHLORIDE (BEAKER) 113 meq/L 98-107 H (test code = 382) CO2 (BEAKER) (test 21 meq/L 22-29 L code = 355) BLOOD UREA NITROGEN 17 mg/dL 7-21 (BEAKER) (test code = 354) CREATININE (BEAKER) 0.77 mg/dL 0.57-1.25 Specimen slightly (test code = 358) hemolyzed GLUCOSE RANDOM 125 mg/dL 70-105 H (BEAKER) (test code = 652) CALCIUM (BEAKER) 8.3 mg/dL 8.4-10.2 L (test code = 697) EGFR (BEAKER) (test 98 mL/min/1.73 ESTIMA ZAINAB GFR IS code = 1092) sq m NOT ACCURATE CREATININE CLEARANCE IN PREDICTING GLOMERULAR FILTRATION RATE . ESTIMATED GFR I S NOT APPLICABLE FOR DIALYSIS PATIEN TS. Perishable Fruit Inspector ID - KIKE [id number] 12:03:41 Test Item Value Reference Range Interpretation Comments PHOSPHORUS (BEAKER) 2.5 mg/dL 2.3-4.7 Specimen slightly (test code = 604) hemolyzed Perishable Fruit Inspector ID - KIKE [id number] 12:03:39 Test Item Value Reference Range Interpretation Comments MAGNESIUM (BEAKER) 1.7 mg/dL 1.6-2.6 Specimen slightly (test code = 627) hemolyzed Perishable Fruit Inspector ID - KIKE MLACTIC ACID, [id number] 11:58:52 Test Item Value Reference Range Interpretation Comments LACTATE BLOOD 0.8 mmol/L 0.5-2.2 Specimen sligh tly ARTERIAL (2) (BEAKER) hemoly zed (test code = 2874) Perishable Fruit Inspector ID - KIKE [id number] 11:47:11 Test Item Value Reference Range Interpretation Comments PARTIAL THROMBOPLASTIN TIME 39.4 seconds 22.5-36.0 H (BEAKER) (test code = 760) [id number] 11:47:10 Test Item Value Reference Range Interpretation Comments FIBRINOGEN LEVEL (BEAKER) (test 200 mg/dl 225-434 L code = 658) PROTHROMBIN [id number] 11:46:29 Test Item Value Reference Range Interpretation Comments PROTIME (BEAKER) 19.5 seconds 11.9-14.2 H (test code = 759) INR (BEAKER) (test 1.67 See_Comment [Automat ed message] code = 370) The system [employer] generated this result transmitted ref erence range: <=5.90. The reference range was not used to int erpret this result as normal/abnormal . RECOMMENDED COUMADIN/WARFARIN INR THERAPY RANGESSTANDARD DOSE: 2.0 - 3.0 Includes: PROPHYLAXIS forvenous thrombosis, systemic embolization; TREATMENT for venous thrombosis and/or pulmonary embolus.HIGH RISK: Target INR is 2.5-3.5 for patients with mechanical heart valves.CBC W/PLT COUNT & AUTO DIFFERENTIAL 2021-03-31 11:41:37 Test Item Value Reference Range Interpretation Comments WHITE BLOOD CELL COUNT (BEAKER) 16.3 K/ L 3.5-10.5 H (test code = 775) RED BLOOD CELL COUNT (BEAKER) 2.98 M/ L 4.63-6.08 L (test code = 761) HEMOGLOBIN (BEAKER) (test code = 9.1 GM/DL 13.7-17.5 L 410) HEMATOCRIT (BEAKER) (test code = 26.4 % 40.1-51.0 L 411) MEAN CORPUSCULAR VOLUME (BEAKER) 88.6 fL 79.0-92.2 (test code = 753) MEAN CORPUSCULAR HEMOGLOBIN 30.5 pg 25.7-32.2 (BEAKER) (test code = 751) MEAN CORPUSCULAR HEMOGLOBIN CONC 34.5 GM/DL 32.3-36.5 (BEAKER) (test code = 752) RED CELL DISTRIBUTION WIDTH 13.8 % 11.6-14.4 (BEAKER) (test code = 412) PLATELET COUNT (BEAKER) (test 117 K/CU MM 150-450 L code = 756) MEAN PLATELET VOLUME (BEAKER) 9.5 fL 9.4-12.4 (test code = 754) NUCLEATED RED BLOOD CELLS 0 /100 WBC 0-0 (BEAKER) (test code = 413) NEUTROPHILS RELATIVE PERCENT 82 % (BEAKER) (test code = 429) LYMPHOCYTES RELATIVE PERCENT 9 % (BEAKER) (test code = 430) MONOCYTES RELATIVE PERCENT 7 % (BEAKER) (test code = 431) EOSINOPHILS RELATIVE PERCENT 1 % (BEAKER) (test code = 432) BASOPHILS RELATIVE PERCENT 0 % (BEAKER) (test code = 437) NEUTROPHILS ABSOLUTE COUNT 13.34 K/ L 1.78-5.38 H (BEAKER) (test code = 670) LYMPHOCYTES ABSOLUTE COUNT 1.43 K/ L 1.32-3.57 (BEAKER) (test code = 414) MONOCYTES ABSOLUTE COUNT (BEAKER) 1.06 K/ L 0.30-0.82 H (test code = 415) EOSINOPHILS ABSOLUTE COUNT 0.17 K/ L 0.04-0.54 (BEAKER) (test code = 416) BASOPHILS ABSOLUTE COUNT (BEAKER) 0.05 K/ L 0.01-0.08 (test code = 417) IMMATURE GRANULOCYTES-RELATIVE 1 % 0-1 PERCENT (BEAKER) (test code = 2801) HGB/HCT (H&H) - STAT [id number] 11:40:15 Test Item Value Reference Range Interpretation Comments HEMOGLOBIN (BEAKER) (test code = 9.6 GM/DL 13.0-16.8 L 410) HEMATOCRIT (BEAKER) (test code = 28.0 % 40.0-50.0 L 411) GLUCOSE-STAT [id number] 11:40:14 Test Item Value Reference Range Interpretation Comments GLUCOSE RANDOM (BEAKER) (test code 124 mg/dL 70-110 H = 652) BLOOD GAS, [id number] 11:40:13 Test Item Value Reference Range Interpretation Comments PH ARTERIAL (BEAKER) (test code = 7.40 7.35-7.45 383) PCO2 ARTERIAL (BEAKER) (test code 36 mm Hg 35-45 = 384) PO2 ARTERIAL (BEAKER) (test code 177 mm Hg 80-90 H = 385) O2 SATURATION ARTERIAL (BEAKER) 99.2 % 96.0-97.0 H (test code = 386) HCO3 ARTERIAL (BEAKER) (test code 22 mmol/L 21-29 = 388) BASE EXCESS ARTERIAL (BEAKER) -2.6 mmol/L -2.0-3.0 L (test code = 387) PATIENT TEMPERATURE (BEAKER) 36.1 (test code = 1818) FIO2 (BEAKER) (test code = 1819) 100.0 POTASSIUM-STAT [id number] 11:39:45 Test Item Value Reference Range Interpretation Comments POTASSIUM (BEAKER) (test code = 4.7 meq/L 3.6-5.5 379) SODIUM NA-STAT [id number] 11:39:44 Test Item Value Reference Range Interpretation Comments SODIUM (BEAKER) (test code = 381) 138 meq/L 136-145 CALCIUM, [id number] 11:39:07 Test Item Value Reference Range Interpretation Comments CALCIUM IONIZED (BEAKER) (test 1.18 mmol/L 1.12-1.27 code = 698) PH, BLOOD (BEAKER) (test code = 7.39 1810) OXYGEN SATURATION, [id number] 11:38:44 Test Item Value Reference Range Interpretation Comments O2 SATURATION (MEASURED) (BEAKER) 77.8 % (test code = 1455) [id number] 11:08:20 Test Item Value Reference Range Interpretation Comments ACTIVATED CLOTTING TIME 125 sec : 74 -137 seconds, (BEAKER) (test code = Bradly ne: TESTED AT 441) [address], [facility] 30: Perishable Fruit Inspector/Techni shanta ID = [id number] for ROMINA ALLISON [id number] 11:08:19 Test Item Value Reference Range Interpretation Comments ACTIVATED CLOTTING TIME 142 sec : 74 -137 seconds, (BEAKER) (test code = Bradly ne: TESTED AT 441) [address], [facility] 30: Perishable Fruit Inspector/Techni shanta ID = [id number] for BE ROMINA AUSTIN [id number] 11:08:18 Test Item Value Reference Range Interpretation Comments ACTIVATED CLOTTING TIME 499 sec : 74 -137 seconds, (BEAKER) (test code = Baseli ne: TESTED AT 441) [address], [facility] 30: Perishable Fruit Inspector/Techni shanta ID = [id number] for BE ROMINA AUSTIN [id number] 11:08:18 Test Item Value Reference Range Interpretation Comments ACTIVATED CLOTTING TIME 472 sec : 74 -137 seconds, (BEAKER) (test code = Baseli ne: TESTED AT 441) [address], [facility] 30: Perishable Fruit Inspector/Techni shanta ID = [id number] for BE ROMINA AUSTIN [id number] 11:07:42 Test Item Value Reference Range Interpretation Comments ACTIVATED CLOTTING TIME 433 sec : 74 -137 seconds, (BEAKER) (test code = Baseli ne: TESTED AT 441) [address], [facility] 30: Perishable Fruit Inspector/Techni shanta ID = [id number] for BE ROMINA AUSTIN [id number] 11:07:41 Test Item Value Reference Range Interpretation Comments ACTIVATED CLOTTING TIME 411 sec : 74 -137 seconds, (BEAKER) (test code = Baseli ne: TESTED AT 441) [address], [facility] 30: Perishable Fruit Inspector/Techni shanta ID = [id number] for ROMINA ALLISON CALCIUM, [id number] 10:51:07 Test Item Value Reference Range Interpretation Comments CALCIUM IONIZED (BEAKER) (test 1.18 mmol/L 1.12-1.27 code = 698) PH, BLOOD (BEAKER) (test code = 7.34 1810) GLUCOSE-STAT [id number] 10:51:05 Test Item Value Reference Range Interpretation Comments GLUCOSE RANDOM (BEAKER) (test code 145 mg/dL 70-110 H = 652) HGB/HCT (H&H) - STAT [id number] 10:51:05 Test Item Value Reference Range Interpretation Comments HEMOGLOBIN (BEAKER) (test code = 9.1 GM/DL 13.0-16.8 L 410) HEMATOCRIT (BEAKER) (test code = 27.0 % 40.0-50.0 L 411) BLOOD GAS, [id number] 10:51:04 Test Item Value Reference Range Interpretation Comments PH ARTERIAL (BEAKER) (test code = 7.38 7.35-7.45 383) PCO2 ARTERIAL (BEAKER) (test code 40 mm Hg 35-45 = 384) PO2 ARTERIAL (BEAKER) (test code 292 mm Hg 80-90 H = 385) O2 SATURATION ARTERIAL (BEAKER) 99.7 % 96.0-97.0 H (test code = 386) HCO3 ARTERIAL (BEAKER) (test code 24 mmol/L 21-29 = 388) BASE EXCESS ARTERIAL (BEAKER) -2.1 mmol/L -2.0-3.0 L (test code = 387) PATIENT TEMPERATURE (BEAKER) 34.6 (test code = 1818) FIO2 (BEAKER) (test code = 1819) 97.0 SODIUM NA-STAT [id number] 10:50:47 Test Item Value Reference Range Interpretation Comments SODIUM (BEAKER) (test code = 381) 138 meq/L 136-145 POTASSIUM-STAT [id number] 10:50:47 Test Item Value Reference Range Interpretation Comments POTASSIUM (BEAKER) (test code = 5.1 meq/L 3.6-5.5 379) GLUCOSE-STAT [id number] 10:17:52 Test Item Value Reference Range Interpretation Comments GLUCOSE RANDOM (BEAKER) (test code 159 mg/dL 70-110 H = 652) HGB/HCT (H&H) - STAT [id number] 10:17:52 Test Item Value Reference Range Interpretation Comments HEMOGLOBIN (BEAKER) (test code = 8.4 GM/DL 13.0-16.8 L 410) HEMATOCRIT (BEAKER) (test code = 25.0 % 40.0-50.0 L 411) BLOOD GAS, [id number] 10:17:51 Test Item Value Reference Range Interpretation Comments PH ARTERIAL (BEAKER) (test code = 7.31 7.35-7.45 L 383) PCO2 ARTERIAL (BEAKER) (test code 41 mm Hg 35-45 = 384) PO2 ARTERIAL (BEAKER) (test code 309 mm Hg 80-90 H = 385) O2 SATURATION ARTERIAL (BEAKER) 99.7 % 96.0-97.0 H (test code = 386) HCO3 ARTERIAL (BEAKER) (test code 21 mmol/L 21-29 = 388) BASE EXCESS ARTERIAL (BEAKER) -5.6 mmol/L -2.0-3.0 L (test code = 387) PATIENT TEMPERATURE (BEAKER) 35.0 (test code = 1818) FIO2 (BEAKER) (test code = 1819) 100.0 CALCIUM, [id number] 10:17:50 Test Item Value Reference Range Interpretation Comments CALCIUM IONIZED (BEAKER) (test 1.31 mmol/L 1.12-1.27 H code = 698) PH, BLOOD (BEAKER) (test code = 7.28 1810) POTASSIUM-STAT [id number] 10:16:53 Test Item Value Reference Range Interpretation Comments POTASSIUM (BEAKER) (test code = 5.5 meq/L 3.6-5.5 379) SODIUM NA-STAT [id number] 10:16:52 Test Item Value Reference Range Interpretation Comments SODIUM (BEAKER) (test code = 381) 135 meq/L 136-145 L POTASSIUM-STAT [id number] 09:39:25 Test Item Value Reference Range Interpretation Comments POTASSIUM (BEAKER) (test code = 6.4 meq/L 3.6-5.5 HH 379) HGB/HCT (H&H) - STAT [id number] 09:37:23 Test Item Value Reference Range Interpretation Comments HEMOGLOBIN (BEAKER) (test code = 9.8 GM/DL 13.0-16.8 L 410) HEMATOCRIT (BEAKER) (test code = 29.0 % 40.0-50.0 L 411) BLOOD GAS, [id number] 09:37:22 Test Item Value Reference Range Interpretation Comments PH ARTERIAL (BEAKER) (test code = 7.39 7.35-7.45 383) PCO2 ARTERIAL (BEAKER) (test code 36 mm Hg 35-45 = 384) PO2 ARTERIAL (BEAKER) (test code 262 mm Hg 80-90 H = 385) O2 SATURATION ARTERIAL (BEAKER) 99.6 % 96.0-97.0 H (test code = 386) HCO3 ARTERIAL (BEAKER) (test code 22 mmol/L 21-29 = 388) BASE EXCESS ARTERIAL (BEAKER) -3.3 mmol/L -2.0-3.0 L (test code = 387) PATIENT TEMPERATURE (BEAKER) 33.5 (test code = 1818) FIO2 (BEAKER) (test code = 1819) 90.0 GLUCOSE-STAT [id number] 09:37:22 Test Item Value Reference Range Interpretation Comments GLUCOSE RANDOM (BEAKER) (test code 208 mg/dL 70-110 H = 652) SODIUM NA-STAT [id number] 09:36:04 Test Item Value Reference Range Interpretation Comments SODIUM (BEAKER) (test code = 381) 135 meq/L 136-145 L BLOOD GAS, [id number] 09:01:58 Test Item Value Reference Range Interpretation Comments PH VENOUS (BEAKER) (test code = 7.34 7.32-7.42 701) PCO2 VENOUS (BEAKER) (test code = 41 mm Hg 41-51 755) PO2 VENOUS (BEAKER) (test code = 38 mm Hg 25-40 702) O2 SATURATION VENOUS (BEAKER) 87.5 % 40.0-70.0 H (test code = 703) HCO3 VENOUS (BEAKER) (test code = 24 mmol/L 21-29 705) BASE EXCESS VENOUS (BEAKER) (test -3.7 mmol/L -2.0-3.0 L code = 704) PATIENT TEMPERATURE (BEAKER) 30.0 (test code = 1818) FIO2 (BEAKER) (test code = 1819) 60.0 HGB/HCT (H&H) - STAT [id number] 09:01:57 Test Item Value Reference Range Interpretation Comments HEMOGLOBIN (BEAKER) (test code = 10.1 GM/DL 13.0-16.8 L 410) HEMATOCRIT (BEAKER) (test code = 30.0 % 40.0-50.0 L 411) POTASSIUM-STAT [id number] 09:01:56 Test Item Value Reference Range Interpretation Comments POTASSIUM (BEAKER) (test code = 5.7 meq/L 3.6-5.5 H 379) GLUCOSE-STAT [id number] 09:01:56 Test Item Value Reference Range Interpretation Comments GLUCOSE RANDOM (BEAKER) (test code 203 mg/dL 70-110 H = 652) SODIUM NA-STAT [id number] 09:01:55 Test Item Value Reference Range Interpretation Comments SODIUM (BEAKER) (test code = 381) 133 meq/L 136-145 L BLOOD GAS, [id number] 09:01:54 Test Item Value Reference Range Interpretation Comments PH ARTERIAL (BEAKER) (test code = 7.37 7.35-7.45 383) PCO2 ARTERIAL (BEAKER) (test code 35 mm Hg 35-45 = 384) PO2 ARTERIAL (BEAKER) (test code 216 mm Hg 80-90 H = 385) O2 SATURATION ARTERIAL (BEAKER) 99.5 % 96.0-97.0 H (test code = 386) HCO3 ARTERIAL (BEAKER) (test code 21 mmol/L 21-29 = 388) BASE EXCESS ARTERIAL (BEAKER) -5.4 mmol/L -2.0-3.0 L (test code = 387) PATIENT TEMPERATURE (BEAKER) 30.0 (test code = 1818) FIO2 (BEAKER) (test code = 1819) 60.0 GLUCOSE-STAT [id number] 07:54:34 Test Item Value Reference Range Interpretation Comments GLUCOSE RANDOM (BEAKER) (test code 113 mg/dL 70-110 H = 652) HGB/HCT (H&H) - STAT [id number] 07:54:34 Test Item Value Reference Range Interpretation Comments HEMOGLOBIN (BEAKER) (test code = 12.3 GM/DL 13.0-16.8 L 410) HEMATOCRIT (BEAKER) (test code = 36.0 % 40.0-50.0 L 411) BLOOD GAS, [id number] 07:54:33 Test Item Value Reference Range Interpretation Comments PH ARTERIAL (BEAKER) (test code = 7.40 7.35-7.45 383) PCO2 ARTERIAL (BEAKER) (test code 37 mm Hg 35-45 = 384) PO2 ARTERIAL (BEAKER) (test code 359 mm Hg 80-90 H = 385) O2 SATURATION ARTERIAL (BEAKER) 99.8 % 96.0-97.0 H (test code = 386) HCO3 ARTERIAL (BEAKER) (test code 22 mmol/L 21-29 = 388) BASE EXCESS ARTERIAL (BEAKER) -2.4 mmol/L -2.0-3.0 L (test code = 387) PATIENT TEMPERATURE (BEAKER) 36.0 (test code = 1818) FIO2 (BEAKER) (test code = 1819) 95.0 STAT-LAB IONIZED [id number] 07:54:15 Test Item Value Reference Range Interpretation Comments FILTER IONIZED CALCIUM (BEAKER) 1.09 nnol/L (test code = 1854) Reference Range: No NormalsPOTASSIUM-STAT [id number] 07:52:36 Test Item Value Reference Range Interpretation Comments POTASSIUM (BEAKER) (test code = 3.6 meq/L 3.6-5.5 379) SODIUM NA-STAT [id number] 07:52:35 Test Item Value Reference Range Interpretation Comments SODIUM (BEAKER) (test code = 381) 135 meq/L 136-145 L BASIC METABOLIC [id number] 07:25:10 Test Item Value Reference Range Interpretation Comments SODIUM (BEAKER) 137 meq/L 136-145 (test code = 381) POTASSIUM (BEAKER) 4.2 meq/L 3.5-5.1 (test code = 379) CHLORIDE (BEAKER) 107 meq/L 98-107 (test code = 382) CO2 (BEAKER) (test 20 meq/L 22-29 L code = 355) ANION GAP (BEAKER) 14 meq/L (test code = 345) BLOOD UREA NITROGEN 20 mg/dL 7-21 (BEAKER) (test code = 354) CREATININE (BEAKER) 0.97 mg/dL 0.57-1.25 (test code = 358) BUN/CREATININE RATIO 20.6 (BEAKER) (test code = 1800) GLUCOSE RANDOM 90 mg/dL 70-105 (BEAKER) (test code = 652) CALCIUM (BEAKER) 9.0 mg/dL 8.4-10.2 (test code = 697) EGFR (BEAKER) (test 75 mL/min/1.73 ESTIMA ZAINAB GFR IS code = 1092) sq m NOT ACCURATE CREATININE CLEARANCE IN PREDICTING GLOMERULAR FILTRATION RATE . ESTIMATED GFR I S NOT APPLICABLE FOR DIALYSIS PATIEN TS. Perishable Fruit Inspector ID - KIKE MHEMOGLOBIN [id number] 06:35:55 Test Item Value Reference Range Interpretation Comments HEMOGLOBIN A1C (BEAKER) (test code = 5.1 % 4.3-6.1 368) CBC W/PLT COUNT & AUTO [id number] 05:37:00 Test Item Value Reference Range Interpretation Comments WHITE BLOOD CELL COUNT (BEAKER) 8.0 K/ L 3.5-10.5 (test code = 775) RED BLOOD CELL COUNT (BEAKER) 4.71 M/ L 4.63-6.08 (test code = 761) HEMOGLOBIN (BEAKER) (test code = 14.0 GM/DL 13.7-17.5 410) HEMATOCRIT (BEAKER) (test code = 41.7 % 40.1-51.0 411) MEAN CORPUSCULAR VOLUME (BEAKER) 88.5 fL 79.0-92.2 (test code = 753) MEAN CORPUSCULAR HEMOGLOBIN 29.7 pg 25.7-32.2 (BEAKER) (test code = 751) MEAN CORPUSCULAR HEMOGLOBIN CONC 33.6 GM/DL 32.3-36.5 (BEAKER) (test code = 752) RED CELL DISTRIBUTION WIDTH 13.8 % 11.6-14.4 (BEAKER) (test code = 412) PLATELET COUNT (BEAKER) (test 233 K/CU MM 150-450 code = 756) MEAN PLATELET VOLUME (BEAKER) 10.2 fL 9.4-12.4 (test code = 754) NUCLEATED RED BLOOD CELLS 0 /100 WBC 0-0 (BEAKER) (test code = 413) NEUTROPHILS RELATIVE PERCENT 62 % (BEAKER) (test code = 429) LYMPHOCYTES RELATIVE PERCENT 24 % (BEAKER) (test code = 430) MONOCYTES RELATIVE PERCENT 10 % (BEAKER) (test code = 431) EOSINOPHILS RELATIVE PERCENT 3 % (BEAKER) (test code = 432) BASOPHILS RELATIVE PERCENT 1 % (BEAKER) (test code = 437) NEUTROPHILS ABSOLUTE COUNT 4.95 K/ L 1.78-5.38 (BEAKER) (test code = 670) LYMPHOCYTES ABSOLUTE COUNT 1.89 K/ L 1.32-3.57 (BEAKER) (test code = 414) MONOCYTES ABSOLUTE COUNT (BEAKER) 0.76 K/ L 0.30-0.82 (test code = 415) EOSINOPHILS ABSOLUTE COUNT 0.20 K/ L 0.04-0.54 (BEAKER) (test code = 416) BASOPHILS ABSOLUTE COUNT (BEAKER) 0.07 K/ L 0.01-0.08 (test code = 417) IMMATURE GRANULOCYTES-RELATIVE 1 % 0-1 PERCENT (BEAKER) (test code = 2801) [id number] 22:53:50 Test Item Value Reference Range Interpretation Comments PARTIAL THROMBOPLASTIN TIME 45.7 seconds 22.5-36.0 H (BEAKER) (test code = 760) LIPID [id number] 21:12:21 Test Item Value Reference Range Interpretation Comments TRIGLYCERIDES (BEAKER) (test code = 163 mg/dL 540) CHOLESTEROL (BEAKER) (test code = 146 mg/dL 631) HDL CHOLESTEROL (BEAKER) (test code 36 mg/dL = 976) LDL CHOLESTEROL CALCULATED (BEAKER) 77 mg/dL (test code = 633) Triglyceride Reference Range: Low Risk <150 Borderline 150-199 High Risk 200-499 Very High Risk >=500Cholesterol Reference Range: Low Risk <200 Borderline 200-239 High Risk >240HDL Cholesterol Reference Range: Low Risk >=60 High Risk <40LDL Cholesterol Reference Range: Optimal <100 Near Optimal 100-129 Borderline 130-159 High 160-189 Very High >=190 [employer] Inspector ID - DBCOMPREHENSIVE METABOLIC [id number] 21:12:20 Test Item Value Reference Range Interpretation Comments TOTAL PROTEIN 6.6 gm/dL 6.0-8.3 (BEAKER) (test code = 770) ALBUMIN (BEAKER) 3.8 g/dL 3.5-5.0 (test code = 1145) ALKALINE PHOSPHATASE 71 U/L 40-150 (BEAKER) (test code = 346) BILIRUBIN TOTAL 0.4 mg/dL 0.2-1.2 (BEAKER) (test code = 377) SODIUM (BEAKER) (test 138 meq/L 136-145 code = 381) POTASSIUM (BEAKER) 4.1 meq/L 3.5-5.1 (test code = 379) CHLORIDE (BEAKER) 105 meq/L 98-107 (test code = 382) CO2 (BEAKER) (test 23 meq/L 22-29 code = 355) ANION GAP (BEAKER) 14 meq/L (test code = 345) BLOOD UREA NITROGEN 22 mg/dL 7-21 H (BEAKER) (test code = 354) CREATININE (BEAKER) 1.18 mg/dL 0.57-1.25 (test code = 358) BUN/CREATININE RATIO 18.6 (BEAKER) (test code = 1800) GLUCOSE RANDOM 124 mg/dL 70-105 H (BEAKER) (test code = 652) CALCIUM (BEAKER) 9.2 mg/dL 8.4-10.2 (test code = 697) AST (SGOT) (BEAKER) 21 U/L 5-34 (test code = 353) ALT (SGPT) (BEAKER) 20 U/L 6-55 (test code = 347) EGFR (BEAKER) (test 60 mL/min/1.73 ESTIMA ZAINAB GFR IS code = 1092) sq m NOT ACCURATE CREATININE CLEARANCE IN PREDICTING GLOMERULAR FILTRATION RATE . ESTIMATED GFR I S NOT APPLICABLE FOR DIALYSIS PATIEN TS. Perishable [employer] Inspector ID - [id number] 21:12:20 Test Item Value Reference Range Interpretation Comments MAGNESIUM (BEAKER) (test code = 2.0 mg/dL 1.6-2.6 627) Perishable [employer] Inspector ID - [id number] 21:03:12 Test Item Value Reference Range Interpretation Comments PARTIAL THROMBOPLASTIN TIME 118.9 seconds 22.5-36.0 H (BEAKER) (test code = 760) PROTHROMBIN [id number] 20:57:08 Test Item Value Reference Range Interpretation Comments PROTIME (BEAKER) 13.1 seconds 11.9-14.2 (test code = 759) INR (BEAKER) (test 1.01 See_Comment [Automat ed message] code = 370) The system [employer] generated this result transmitted ref erence range: <=5.90. The reference range was not used to int erpret this result as normal/abnormal . RECOMMENDED COUMADIN/WARFARIN INR THERAPY RANGESSTANDARD DOSE: 2.0 - 3.0 Includes: PROPHYLAXIS forvenous thrombosis, systemic embolization; TREATMENT for venous thrombosis and/or pulmonary embolus.HIGH RISK: Target INR is 2.5-3.5 for patients with mechanical heart valves.CBC W/PLT COUNT & AUTO DIFFERENTIAL 2021-03-30 20:46:48 Test Item Value Reference Range Interpretation Comments WHITE BLOOD CELL COUNT (BEAKER) 8.0 K/ L 3.5-10.5 (test code = 775) RED BLOOD CELL COUNT (BEAKER) 4.53 M/ L 4.63-6.08 L (test code = 761) HEMOGLOBIN (BEAKER) (test code = 13.5 GM/DL 13.7-17.5 L 410) HEMATOCRIT (BEAKER) (test code = 40.2 % 40.1-51.0 411) MEAN CORPUSCULAR VOLUME (BEAKER) 88.7 fL 79.0-92.2 (test code = 753) MEAN CORPUSCULAR HEMOGLOBIN 29.8 pg 25.7-32.2 (BEAKER) (test code = 751) MEAN CORPUSCULAR HEMOGLOBIN CONC 33.6 GM/DL 32.3-36.5 (BEAKER) (test code = 752) RED CELL DISTRIBUTION WIDTH 13.7 % 11.6-14.4 (BEAKER) (test code = 412) PLATELET COUNT (BEAKER) (test 238 K/CU MM 150-450 code = 756) MEAN PLATELET VOLUME (BEAKER) 9.8 fL 9.4-12.4 (test code = 754) NUCLEATED RED BLOOD CELLS 0 /100 WBC 0-0 (BEAKER) (test code = 413) NEUTROPHILS RELATIVE PERCENT 65 % (BEAKER) (test code = 429) LYMPHOCYTES RELATIVE PERCENT 24 % (BEAKER) (test code = 430) MONOCYTES RELATIVE PERCENT 8 % (BEAKER) (test code = 431) EOSINOPHILS RELATIVE PERCENT 3 % (BEAKER) (test code = 432) BASOPHILS RELATIVE PERCENT 1 % (BEAKER) (test code = 437) NEUTROPHILS ABSOLUTE COUNT 5.20 K/ L 1.78-5.38 (BEAKER) (test code = 670) LYMPHOCYTES ABSOLUTE COUNT 1.89 K/ L 1.32-3.57 (BEAKER) (test code = 414) MONOCYTES ABSOLUTE COUNT (BEAKER) 0.61 K/ L 0.30-0.82 (test code = 415) EOSINOPHILS ABSOLUTE COUNT 0.20 K/ L 0.04-0.54 (BEAKER) (test code = 416) BASOPHILS ABSOLUTE COUNT (BEAKER) 0.06 K/ L 0.01-0.08 (test code = 417) IMMATURE GRANULOCYTES-RELATIVE 1 % 0-1 PERCENT (BEAKER) (test code = 2801) [id number] 13:52:27 Test Item Value Reference Range Interpretation Comments PARTIAL THROMBOPLASTIN TIME 55.5 seconds 22.5-36.0 H (BEAKER) (test code = 760) BASIC METABOLIC [id number] 07:09:12 Test Item Value Reference Range Interpretation Comments SODIUM (BEAKER) 136 meq/L 136-145 (test code = 381) POTASSIUM (BEAKER) 4.6 meq/L 3.5-5.1 Specimen slightly (test code = 379) hemolyzed CHLORIDE (BEAKER) 107 meq/L 98-107 (test code = 382) CO2 (BEAKER) (test 22 meq/L 22-29 code = 355) BLOOD UREA NITROGEN 17 mg/dL 7-21 (BEAKER) (test code = 354) CREATININE (BEAKER) 0.92 mg/dL 0.57-1.25 Specimen slightly (test code = 358) hemolyzed GLUCOSE RANDOM 96 mg/dL 70-105 (BEAKER) (test code = 652) CALCIUM (BEAKER) 8.9 mg/dL 8.4-10.2 (test code = 697) EGFR (BEAKER) (test 80 mL/min/1.73 ESTIMA ZAINAB GFR IS code = 1092) sq m NOT ACCURATE CREATININE CLEARANCE IN PREDICTING GLOMERULAR FILTRATION RATE . ESTIMATED GFR I S NOT APPLICABLE FOR DIALYSIS PATIEN TSCelso Perishable Fruit Inspector ID - [id number] 06:43:26 Test Item Value Reference Range Interpretation Comments PARTIAL THROMBOPLASTIN TIME 93.8 seconds 22.5-36.0 H (BEAKER) (test code = 760) CBC W/PLT COUNT & AUTO [id number] 06:19:36 Test Item Value Reference Range Interpretation Comments WHITE BLOOD CELL COUNT (BEAKER) 7.8 K/ L 3.5-10.5 (test code = 775) RED BLOOD CELL COUNT (BEAKER) 4.45 M/ L 4.63-6.08 L (test code = 761) HEMOGLOBIN (BEAKER) (test code = 13.2 GM/DL 13.7-17.5 L 410) HEMATOCRIT (BEAKER) (test code = 39.4 % 40.1-51.0 L 411) MEAN CORPUSCULAR VOLUME (BEAKER) 88.5 fL 79.0-92.2 (test code = 753) MEAN CORPUSCULAR HEMOGLOBIN 29.7 pg 25.7-32.2 (BEAKER) (test code = 751) MEAN CORPUSCULAR HEMOGLOBIN CONC 33.5 GM/DL 32.3-36.5 (BEAKER) (test code = 752) RED CELL DISTRIBUTION WIDTH 13.8 % 11.6-14.4 (BEAKER) (test code = 412) PLATELET COUNT (BEAKER) (test 217 K/CU MM 150-450 code = 756) MEAN PLATELET VOLUME (BEAKER) 9.8 fL 9.4-12.4 (test code = 754) NUCLEATED RED BLOOD CELLS 0 /100 WBC 0-0 (BEAKER) (test code = 413) NEUTROPHILS RELATIVE PERCENT 65 % (BEAKER) (test code = 429) LYMPHOCYTES RELATIVE PERCENT 23 % (BEAKER) (test code = 430) MONOCYTES RELATIVE PERCENT 8 % (BEAKER) (test code = 431) EOSINOPHILS RELATIVE PERCENT 2 % (BEAKER) (test code = 432) BASOPHILS RELATIVE PERCENT 1 % (BEAKER) (test code = 437) NEUTROPHILS ABSOLUTE COUNT 5.07 K/ L 1.78-5.38 (BEAKER) (test code = 670) LYMPHOCYTES ABSOLUTE COUNT 1.78 K/ L 1.32-3.57 (BEAKER) (test code = 414) MONOCYTES ABSOLUTE COUNT (BEAKER) 0.63 K/ L 0.30-0.82 (test code = 415) EOSINOPHILS ABSOLUTE COUNT 0.17 K/ L 0.04-0.54 (BEAKER) (test code = 416) BASOPHILS ABSOLUTE COUNT (BEAKER) 0.05 K/ L 0.01-0.08 (test code = 417) IMMATURE GRANULOCYTES-RELATIVE 1 % 0-1 PERCENT (BEAKER) (test code = 2801) [id number] 23:18:06 Test Item Value Reference Range Interpretation Comments PARTIAL THROMBOPLASTIN TIME 107.0 seconds 22.5-36.0 H (BEAKER) (test code = 760) [id number] 14:54:28 Test Item Value Reference Range Interpretation Comments PARTIAL THROMBOPLASTIN TIME 54.0 seconds 22.5-36.0 H (BEAKER) (test code = 760) [id number] 07:00:39 Test Item Value Reference Range Interpretation Comments PARTIAL THROMBOPLASTIN TIME 56.0 seconds 22.5-36.0 H (BEAKER) (test code = 760) BASIC METABOLIC [id number] 05:31:45 Test Item Value Reference Range Interpretation Comments SODIUM (BEAKER) 137 meq/L 136-145 (test code = 381) POTASSIUM (BEAKER) 3.7 meq/L 3.5-5.1 (test code = 379) CHLORIDE (BEAKER) 107 meq/L 98-107 (test code = 382) CO2 (BEAKER) (test 23 meq/L 22-29 code = 355) BLOOD UREA NITROGEN 20 mg/dL 7-21 (BEAKER) (test code = 354) CREATININE (BEAKER) 0.95 mg/dL 0.57-1.25 (test code = 358) GLUCOSE RANDOM 107 mg/dL 70-105 H (BEAKER) (test code = 652) CALCIUM (BEAKER) 9.0 mg/dL 8.4-10.2 (test code = 697) EGFR (BEAKER) (test 77 mL/min/1.73 ESTIMA ZAINBA GFR IS code = 1092) sq m NOT ACCURATE CREATININE CLEARANCE IN PREDICTING GLOMERULAR FILTRATION RATE . ESTIMATED GFR I S NOT APPLICABLE FOR DIALYSIS PATIEN TS. Perishable Fruit Inspector ID - [id number] 05:15:01 Test Item Value Reference Range Interpretation Comments PARTIAL THROMBOPLASTIN TIME 140.4 seconds 22.5-36.0 H (BEAKER) (test code = 760) CBC W/PLT COUNT & AUTO [id number] 05:07:44 Test Item Value Reference Range Interpretation Comments WHITE BLOOD CELL COUNT (BEAKER) 7.3 K/ L 3.5-10.5 (test code = 775) RED BLOOD CELL COUNT (BEAKER) 4.30 M/ L 4.63-6.08 L (test code = 761) HEMOGLOBIN (BEAKER) (test code = 12.6 GM/DL 13.7-17.5 L 410) HEMATOCRIT (BEAKER) (test code = 38.1 % 40.1-51.0 L 411) MEAN CORPUSCULAR VOLUME (BEAKER) 88.6 fL 79.0-92.2 (test code = 753) MEAN CORPUSCULAR HEMOGLOBIN 29.3 pg 25.7-32.2 (BEAKER) (test code = 751) MEAN CORPUSCULAR HEMOGLOBIN CONC 33.1 GM/DL 32.3-36.5 (BEAKER) (test code = 752) RED CELL DISTRIBUTION WIDTH 13.8 % 11.6-14.4 (BEAKER) (test code = 412) PLATELET COUNT (BEAKER) (test 216 K/CU MM 150-450 code = 756) MEAN PLATELET VOLUME (BEAKER) 9.9 fL 9.4-12.4 (test code = 754) NUCLEATED RED BLOOD CELLS 0 /100 WBC 0-0 (BEAKER) (test code = 413) NEUTROPHILS RELATIVE PERCENT 61 % (BEAKER) (test code = 429) LYMPHOCYTES RELATIVE PERCENT 25 % (BEAKER) (test code = 430) MONOCYTES RELATIVE PERCENT 9 % (BEAKER) (test code = 431) EOSINOPHILS RELATIVE PERCENT 3 % (BEAKER) (test code = 432) BASOPHILS RELATIVE PERCENT 1 % (BEAKER) (test code = 437) NEUTROPHILS ABSOLUTE COUNT 4.40 K/ L 1.78-5.38 (BEAKER) (test code = 670) LYMPHOCYTES ABSOLUTE COUNT 1.85 K/ L 1.32-3.57 (BEAKER) (test code = 414) MONOCYTES ABSOLUTE COUNT (BEAKER) 0.67 K/ L 0.30-0.82 (test code = 415) EOSINOPHILS ABSOLUTE COUNT 0.23 K/ L 0.04-0.54 (BEAKER) (test code = 416) BASOPHILS ABSOLUTE COUNT (BEAKER) 0.07 K/ L 0.01-0.08 (test code = 417) IMMATURE GRANULOCYTES-RELATIVE 1 % 0-1 PERCENT (BEAKER) (test code = 2801) [id number] 21:22:42 Test Item Value Reference Range Interpretation Comments PARTIAL THROMBOPLASTIN TIME 53.5 seconds 22.5-36.0 H (BEAKER) (test code = 760) [id number] 13:30:09 Test Item Value Reference Range Interpretation Comments PARTIAL THROMBOPLASTIN TIME 102.4 seconds 22.5-36.0 H (BEAKER) (test code = 760) SARS-COV2/RT-PCR ([facility])2021-03-28 13:00:55 Test Item Value Reference Range Interpretation Comments SARS-COV2/RT-PCR (test Negative Not Detected, Negative, code = 1826329) See external report for linked test SARS-COV-[address] [facility] (test code = 7661965) Negative result for this test determines that SARS-CoV-2 RNA was not present in the specimen above the Limit of Detection (LOD). However, Negative results do not preclude SARS-CoV-2 infection and should not be used as the sole basis for treatment or patient management decisions. Negative results mustbe combined with clinical observations, patient history, and epidemiological information. A false negative result may occur if a specimen is improperly collected, transported or handled. A false negative result should be considered if patient's recent exposures or clinical presentation indicate that COVID-19 (SARS-CoV-2) is likely and diagnostic tests for other causes of illness are negative. Re-testing should be considered in cases of suspected false negatives.The limit of detection for this assay is 800 copies/mL.This SARS CoV-2 test is a real-time RT-PCR test intended for the qualitative detection of nucleic acid from SARS-CoV-2 in a nasopharyngeal swab specimen collected from individuals susp ected of COVID-19 by their healthcare provider.This test has not been Food and Drug Administration (FDA) cleared or approved. This is a modified version of an approved Emergency Use Authorization (EUA) and is in the process of review by the FDA. Once authorized by the FDA, the issued EUA will be effective until the declaration that circumstances exist justifying the authorization of the emergency use of in vitro diagnostic tests for detection and/or diagnosis of COVID-19 is terminated under Section 564(b)(2) of the Act or the EUA is revoked under Section 564(g) of the Act.Fact Sheet for Healthcare Providers:https://www.[employer].com/sites/default/files/product/documents/Fact_Shee e_QI_Rgtkqiwmt_Lcnd_GZIS-VzT-0.pdfFact Sheet for Healthcare Patients:https://www.[employer].com/sites/default/files/product/ documents/Hiso_Zsdcq_Vuhnlcev_Xvyv_KMXA-PsB-0.pdfPerforming Laboratory:[facility], [place] [id number] 04:58:01 Test Item Value Reference Range Interpretation Comments PARTIAL THROMBOPLASTIN TIME 39.5 seconds 22.5-36.0 H (BEAKER) (test code = 760) BASIC METABOLIC [id number] 04:51:43 Test Item Value Reference Range Interpretation Comments SODIUM (BEAKER) 137 meq/L 136-145 (test code = 381) POTASSIUM (BEAKER) 3.6 meq/L 3.5-5.1 (test code = 379) CHLORIDE (BEAKER) 106 meq/L 98-107 (test code = 382) CO2 (BEAKER) (test 21 meq/L 22-29 L code = 355) BLOOD UREA NITROGEN 21 mg/dL 7-21 (BEAKER) (test code = 354) CREATININE (BEAKER) 0.99 mg/dL 0.57-1.25 (test code = 358) GLUCOSE RANDOM 93 mg/dL 70-105 (BEAKER) (test code = 652) CALCIUM (BEAKER) 8.9 mg/dL 8.4-10.2 (test code = 697) EGFR (BEAKER) (test 74 mL/min/1.73 ESTIMA ZAINAB GFR IS code = 1092) sq m NOT ACCURATE CREATININE CLEARANCE IN PREDICTING GLOMERULAR FILTRATION RATE . ESTIMATED GFR I S NOT APPLICABLE FOR DIALYSIS PATIEN TS. Perishable Fruit Inspector ID - KIKE MCBC W/PLT COUNT & AUTO [id number] 04:30:57 Test Item Value Reference Range Interpretation Comments WHITE BLOOD CELL COUNT (BEAKER) 7.7 K/ L 3.5-10.5 (test code = 775) RED BLOOD CELL COUNT (BEAKER) 4.36 M/ L 4.63-6.08 L (test code = 761) HEMOGLOBIN (BEAKER) (test code = 13.0 GM/DL 13.7-17.5 L 410) HEMATOCRIT (BEAKER) (test code = 38.6 % 40.1-51.0 L 411) MEAN CORPUSCULAR VOLUME (BEAKER) 88.5 fL 79.0-92.2 (test code = 753) MEAN CORPUSCULAR HEMOGLOBIN 29.8 pg 25.7-32.2 (BEAKER) (test code = 751) MEAN CORPUSCULAR HEMOGLOBIN CONC 33.7 GM/DL 32.3-36.5 (BEAKER) (test code = 752) RED CELL DISTRIBUTION WIDTH 13.9 % 11.6-14.4 (BEAKER) (test code = 412) PLATELET COUNT (BEAKER) (test 217 K/CU MM 150-450 code = 756) MEAN PLATELET VOLUME (BEAKER) 9.8 fL 9.4-12.4 (test code = 754) NUCLEATED RED BLOOD CELLS 0 /100 WBC 0-0 (BEAKER) (test code = 413) NEUTROPHILS RELATIVE PERCENT 61 % (BEAKER) (test code = 429) LYMPHOCYTES RELATIVE PERCENT 26 % (BEAKER) (test code = 430) MONOCYTES RELATIVE PERCENT 9 % (BEAKER) (test code = 431) EOSINOPHILS RELATIVE PERCENT 3 % (BEAKER) (test code = 432) BASOPHILS RELATIVE PERCENT 1 % (BEAKER) (test code = 437) NEUTROPHILS ABSOLUTE COUNT 4.72 K/ L 1.78-5.38 (BEAKER) (test code = 670) LYMPHOCYTES ABSOLUTE COUNT 1.99 K/ L 1.32-3.57 (BEAKER) (test code = 414) MONOCYTES ABSOLUTE COUNT (BEAKER) 0.71 K/ L 0.30-0.82 (test code = 415) EOSINOPHILS ABSOLUTE COUNT 0.19 K/ L 0.04-0.54 (BEAKER) (test code = 416) BASOPHILS ABSOLUTE COUNT (BEAKER) 0.04 K/ L 0.01-0.08 (test code = 417) IMMATURE GRANULOCYTES-RELATIVE 1 % 0-1 PERCENT (BEAKER) (test code = 2801) RAD, CHEST, 1 VIEW, NON [id number] 23:15:00Reason for exam:->chest painShould this be performed at the bedside?->Yes [facility] : 1945 Sex: MFINAL REPORT History: Chest pain. Comparison: None. Findings: A single view of the chest is submitted. The cardiac silhouette is within normal limits for size. There is atherosclerotic calcification of the elongated aorta. There is no focal consolidation, pneumothorax, large pleural effusion or evidence of overt pulmonary edema. There is no acute bony abnormality. Impre ssion: No acute abnormality. Signed: Ross Galdamez MDReport Verified Date/Time: 03/27/2021 23:15:35 [id number] 20:27:48 Test Item Value Reference Range Interpretation Comments PARTIAL THROMBOPLASTIN TIME 56.3 seconds 22.5-36.0 H (BEAKER) (test code = 760) HEMOGLOBIN [id number] 19:58:37 Test Item Value Reference Range Interpretation Comments HEMOGLOBIN A1C (BEAKER) (test code = 5.4 % 4.3-6.1 368) LIPID [id number] 18:43:27 Test Item Value Reference Range Interpretation Comments TRIGLYCERIDES (BEAKER) (test code = 218 mg/dL 540) CHOLESTEROL (BEAKER) (test code = 180 mg/dL 631) HDL CHOLESTEROL (BEAKER) (test code 36 mg/dL = 976) LDL CHOLESTEROL CALCULATED (BEAKER) 100 mg/dL (test code = 633) Triglyceride Reference Range: Low Risk <150 Borderline 150-199 High Risk 200-499 Very High Risk >=500Cholesterol Reference Range: Low Risk <200 Borderline 200-239 High Risk >240HDL Cholesterol Reference Range: Low Risk >=60 High Risk <40LDL Cholesterol Reference Range: Optimal <100 Near Optimal 100-129 Borderline 130-159 High 160-189 Very High >=190 Perishable Fruit Inspector ID - BSBASIC METABOLIC [id number] 18:02:45 Test Item Value Reference Range Interpretation Comments SODIUM (BEAKER) 140 meq/L 136-145 (test code = 381) POTASSIUM (BEAKER) 3.8 meq/L 3.5-5.1 (test code = 379) CHLORIDE (BEAKER) 106 meq/L 98-107 (test code = 382) CO2 (BEAKER) (test 22 meq/L 22-29 code = 355) BLOOD UREA NITROGEN 23 mg/dL 7-21 H (BEAKER) (test code = 354) CREATININE (BEAKER) 1.03 mg/dL 0.57-1.25 (test code = 358) GLUCOSE RANDOM 94 mg/dL 70-105 (BEAKER) (test code = 652) CALCIUM (BEAKER) 9.5 mg/dL 8.4-10.2 (test code = 697) EGFR (BEAKER) (test 70 mL/min/1.73 ESTIMA ZAINAB GFR IS code = 1092) sq m NOT ACCURATE CREATININE CLEARANCE IN PREDICTING GLOMERULAR FILTRATION RATE . ESTIMATED GFR I S NOT APPLICABLE FOR DIALYSIS PATIEN TS. Perishable Fruit Inspector ID - BSCBC (HEMOGRAM ONLY)2021-03-27 17:22:56 Test Item Value Reference Range Interpretation Comments WHITE BLOOD CELL COUNT (BEAKER) 9.0 K/ L 3.5-10.5 (test code = 775) RED BLOOD CELL COUNT (BEAKER) 4.62 M/ L 4.63-6.08 L (test code = 761) HEMOGLOBIN (BEAKER) (test code = 13.6 GM/DL 13.7-17.5 L 410) HEMATOCRIT (BEAKER) (test code = 41.3 % 40.1-51.0 411) MEAN CORPUSCULAR VOLUME (BEAKER) 89.4 fL 79.0-92.2 (test code = 753) MEAN CORPUSCULAR HEMOGLOBIN 29.4 pg 25.7-32.2 (BEAKER) (test code = 751) MEAN CORPUSCULAR HEMOGLOBIN CONC 32.9 GM/DL 32.3-36.5 (BEAKER) (test code = 752) RED CELL DISTRIBUTION WIDTH 14.2 % 11.6-14.4 (BEAKER) (test code = 412) PLATELET COUNT (BEAKER) (test 251 K/CU MM 150-450 code = 756) MEAN PLATELET VOLUME (BEAKER) 10.2 fL 9.4-12.4 (test code = 754) NUCLEATED RED BLOOD CELLS 0 /100 WBC 0-0 (BEAKER) (test code = 413)
--- NOTE | 2021-07-11 20:04 | RAD REPORT ---
EXAM DESCRIPTION: CT - Ct Stroke Brain Wo Cont - 07/11/2021 7:57 pm CLINICAL HISTORY: VISUAL DISTURBANCES COMPARISON: <Comparisons> TECHNIQUE: All CT scans are performed using dose optimization technique as appropriate and may inclu de automated exposure control or mA/KV adjustment according to patient size. FINDINGS: No intracranial hemorrhage, hydrocephalus or extra-axial fluid collection.No areas of brai n edema or evidence of midline shift. The paranasal sinuses and mastoids are clear. The calvarium is intact. IMPRESSION: No acute intracranial abnormality.
--- NOTE | 2021-07-11 20:13 | EDPHYS ---
Physician Documentation [facility] Name: Chris Ramirez Age: 75 yrs Sex: Male : 1945 Arrival Date: 07/11/2021 Time: 19:44 Bed 2 Private MD: ED Physician Tom Madera HPI: 07/11 20:04 This 75 yrs old Male presents to ER via Ambulatory with complaints of Loss Of denisha Vision - Right. 20:04 The patient is experiencing decreased vision, The patient sustained to the right eye. denisha Onset: The symptoms/episode began/occurred 1 hour(s) ago. Duration: the symptoms are continuous. Aggravated by nothing. Alleviated by nothing. Associated signs and symptoms: Pertinent positives: None. Pertinent negatives: None. Patient wears glasses. Severity of symptoms: At their worst the symptoms were severe in the emergency department the symptoms are unchanged. The patient has not experienced similar symptoms in the past. Historical: - Allergies: 20:01 No Known Allergies; bb - PMHx: 20:01 Hypertension; CAD; high cholesterol; bb - PSHx: 20:01 Coronary artery bypass graft; Urolift; bb - Immunization history:: Moderna x 3. - Social history:: Smoking status: Patient denies any tobacco usage or history of. - Family history:: not pertinent. ROS: 20:04 Constitutional: Negative for fever, chills, and weight loss, ENT: Negative for injury, denisha pain, and discharge, Neck: Negative for injury, pain, and swelling, Cardiovascular: Negative for chest pain, palpitations, and edema, Respiratory: Negative for shortness of breath, cough, wheezing, and pleuritic chest pain, Abdomen/GI: Negative for abdominal pain, nausea, vomiting, diarrhea, and constipation, Back: Negative for injury and pain, : Negative for injury, bleeding, discharge, and swelling, MS/Extremity: Negative for injury and deformity, Skin: Negative for injury, rash, and discoloration, Neuro: Negative for headache, weakness, numbness, tingling, and seizure. 20:04 Eyes: Positive for vision loss. Exam: 20:04 Constitutional: This is a well developed, well nourished patient who is awake, alert, denisha and in no acute distress. Head/Face: Normocephalic, atraumatic. ENT: Nares patent. No nasal discharge, no septal abnormalities noted. Tympanic membranes are normal and external auditory canals are clear. Oropharynx with no redness, swelling, or masses, exudates, or evidence of obstruction, uvula midline. Mucous membranes moist. Neck: Trachea midline, no thyromegaly or masses palpated, and no cervical lymphadenopathy. Supple, full range of motion without nuchal rigidity, or vertebral point tenderness. No Meningismus. Chest/axilla: Normal chest wall appearance and motion. Nontender with no deformity. No lesions are appreciated. Cardiovascular: Regular rate and rhythm with a normal S1 and S2. No gallops, murmurs, or rubs. Normal PMI, no JVD. No pulse deficits. Respiratory: Lungs have equal breath sounds bilaterally, clear to auscultation and percussion. No rales, rhonchi or wheezes noted. No increased work of breathing, no retractions or nasal flaring. Abdomen/GI: Soft, non-tender, with normal bowel sounds. No distension or tympany. No guarding or rebound. No evidence of tenderness throughout. Back: No spinal tenderness. No costovertebral tenderness. Full range of motion. Male : Normal genitalia with no discharge or lesions. Skin: Warm, dry with normal turgor. Normal color with no rashes, no lesions, and no evidence of cellulitis. MS/ Extremity: Pulses equal, no cyanosis. Neurovascular intact. Full, normal range of motion. Neuro: Awake and alert, GCS 15, oriented to person, place, time, and situation. Cranial nerves II-XII grossly intact. Motor strength 5/5 in all extremities. Sensory grossly intact. Cerebellar exam normal. Normal gait. Psych: Awake, alert, with orientation to person, place and time. Behavior, mood, and affect are within normal limits. 20:04 Eyes: Periorbital structures: appear normal, Pupils: no acute changes, equal, round, and reactive to light and accomodation, Extraocular movements: no acute changes, Conjunctiva: normal, no acute changes, Corneas: are normal, no acute changes, Sclera: no appreciated abnormality, no acute changes, Anterior chamber: normal, no acute changes, Lids and lashes: appear normal, funduscopic exam reveals no obvious abnormalities, no acute changes, discs that are sharp, no appreciated papilledema, no retinal detachment, no enlargement of the optic cup, no appreciated A-V knicking, no evidence of cotton wool exudatates, no flame hemorrhages, no macular swenson red spot, no afferent papillary defect, Visual vega: are intact, Nystagmus: is not appreciated. 20:16 ECG was reviewed by the Attending Physician. denisha Vital Signs: 19:46 BP 170 / 87; Pulse 81; Resp 16 S; Temp 97.7(O); Pulse Ox 100% on R/A; Weight 82.55 kg bb (R); Height 6 ft. 1 in. (185.42 cm) (R); Pain 0/10; 19:59 BP 139 / 80; Pulse 71; Resp 18; Pulse Ox 100% on R/A; mk 20:15 BP 144 / 76; Pulse 68; Resp 16; Pulse Ox 100% on R/A; mk 20:34 BP 137 / 68; Pulse 69; Resp 18; Pulse Ox 100% on R/A; mk 20:39 BP 137 / 73; Pulse 71; Resp 15; Pulse Ox 100% on R/A; mk 20:44 BP 142 / 81; Pulse 72; Resp 15; Pulse Ox 100% on R/A; mk 20:49 BP 134 / 79; Pulse 73; Resp 17; Pulse Ox 100% on R/A; mk 21:04 BP 133 / 81; Pulse 79; Resp 20; Pulse Ox 100% on R/A; mk 21:09 BP 130 / 87; Pulse 89; Resp 17; Pulse Ox 99% on R/A; mk 21:14 BP 143 / 82; Pulse 87; Resp 16; Pulse Ox 100% on R/A; mk 21:19 BP 137 / 71; Pulse 85; Resp 21; Pulse Ox 100% on R/A; mk 21:24 BP 135 / 88; Pulse 86; Resp 18; Pulse Ox 99% on R/A; mk 21:29 BP 139 / 74; Pulse 87; Resp 21; Pulse Ox 99% on R/A; mk 21:34 BP 148 / 77; Pulse 79; Resp 16; Pulse Ox 98% on R/A; mk 21:49 BP 139 / 81; Pulse 79; Resp 16; Pulse Ox 99% on R/A; mk 22:04 BP 160 / 89; Pulse 80; Resp 17; Pulse Ox 100% on R/A; mk 19:46 Body Mass Index 24.01 (82.55 kg, 185.42 cm) bb NIH Stroke Scale Scores: 19:49 NIHSS Score: 2 mk 20:34 NIHSS Score: 2 mk 20:39 NIHSS Score: 2 mk 20:44 NIHSS Score: 2 mk 20:49 NIHSS Score: 2 mk 20:54 NIHSS Score: 2 mk 20:59 NIHSS Score: 2 mk 21:04 NIHSS Score: 1 mk 21:04 NIHSS Score: 1 mk 21:09 NIHSS Score: 0 mk 21:14 NIHSS Score: 0 mk 21:19 NIHSS Score: 0 mk 21:22 NIHSS Score: 0 denisha 21:24 NIHSS Score: 0 mk 21:29 NIHSS Score: 0 mk 21:34 NIHSS Score: 0 mk 21:49 NIHSS Score: 0 mk 22:04 NIHSS Score: 0 mk Kameron Coma Score: 19:59 Eye Response: spontaneous(4). Verbal Response: oriented(5). Motor Response: obeys mk commands(6). Total: 15. 20:15 Eye Response: spontaneous(4). Verbal Response: oriented(5). Motor Response: obeys mk commands(6). Total: 15. 20:34 Eye Response: spontaneous(4). Verbal Response: oriented(5). Motor Response: obeys mk commands(6). Total: 15. 20:39 Eye Response: spontaneous(4). Verbal Response: oriented(5). Motor Response: obeys mk commands(6). Total: 15. 20:44 Eye Response: spontaneous(4). Verbal Response: oriented(5). Motor Response: obeys mk commands(6). Total: 15. 20:49 Eye Response: spontaneous(4). Verbal Response: oriented(5). Motor Response: obeys mk commands(6). Total: 15. 21:04 Eye Response: spontaneous(4). Verbal Response: oriented(5). Motor Response: obeys mk commands(6). Total: 15. 21:09 Eye Response: spontaneous(4). Verbal Response: oriented(5). Motor Response: obeys mk commands(6). Total: 15. 21:14 Eye Response: spontaneous(4). Verbal Response: oriented(5). Motor Response: obeys mk commands(6). Total: 15. 21:19 Eye Response: spontaneous(4). Verbal Response: oriented(5). Motor Response: obeys mk commands(6). Total: 15. 21:22 Eye Response: spontaneous(4). Verbal Response: oriented(5). Motor Response: obeys denisha commands(6). Total: 15. 21:24 Eye Response: spontaneous(4). Verbal Response: oriented(5). Motor Response: obeys mk commands(6). Total: 15. 21:29 Eye Response: spontaneous(4). Verbal Response: oriented(5). Motor Response: obeys mk commands(6). Total: 15. 21:34 Eye Response: spontaneous(4). Verbal Response: oriented(5). Motor Response: obeys mk commands(6). Total: 15. 21:49 Eye Response: spontaneous(4). Verbal Response: oriented(5). Motor Response: obeys mk commands(6). Total: 15. 22:04 Eye Response: spontaneous(4). Verbal Response: oriented(5). Motor Response: obeys mk commands(6). Total: 15. MDM: 19:46 Patient medically screened. [facility] 20:09 Differential diagnosis: Foreign body in Acute glaucoma in. Data reviewed: vital signs, [facility] nurses notes, lab test result(s), EKG, radiologic studies, CT scan, plain films. Data interpreted: conveyor monitor: rate is 81 beats/min, rhythm is regular, Pulse oximetry: on room air is 100 %. Test interpretation: by ED physician or midlevel provider: ECG, plain radiologic studies. Counseling: I had a detailed discussion with the patient and/or guardian regarding: the historical points, exam findings, and any diagnostic results supporting the discharge/admit diagnosis, lab results, radiology results, the need to transfer to another facility, for higher level of care, [facility] does not immediately have the required specialist. 07/11 19:49 Order name: Basic Metabolic Panel [facility] 07/11 19:49 Order name: CBC with Diff 07/11 19:49 Order name: LFT's [facility] 07/11 19:49 Order name: Magnesium denisha 07/11 19:49 Order name: NT PRO-BNP; Complete Time: 20:47 [facility] 07/11 19:49 Order name: PT-INR; Complete Time: 20:47 [facility] 07/11 19:49 Order name: Troponin HS; Complete Time: 20:47 denisha 07/11 19:49 Order name: SARS-COV-2 RT PCR (Document "Date of Onset" if Symptomatic) 07/11 19:49 Order name: CRP; Complete Time: 20:47 [facility] 07/11 19:49 Order name: Sed Rate; Complete Time: 21:06 [facility] 07/11 19:49 Order name: Basic Metabolic Panel; Complete Time: 20:47 EDMS 07/11 19:49 Order name: CBC with Automated Diff; Complete Time: 21:06 EDMS 07/11 19:49 Order name: Liver (Hepatic) Function; Complete Time: 20:47 EDMS 07/11 19:49 Order name: Magnesium; Complete Time: 20:47 EDMS 07/11 19:49 Order name: XRAY Chest (1 view); Complete Time: 20:47 [facility] 07/11 19:49 Order name: EKG; Complete Time: 19:50 [facility] 07/11 19:49 Order name: Cardiac monitoring; Complete Time: 20:28 [facility] 07/11 19:49 Order name: EKG - Nurse/Tech; Complete Time: 20:28 [facility] 07/11 19:49 Order name: IV Saline Lock; Complete Time: 20:28 [facility] 07/11 19:49 Order name: Labs collected and sent; Complete Time: 20:28 [facility] 07/11 19:49 Order name: O2 Per Protocol; Complete Time: 20:28 [facility] 07/11 19:49 Order name: O2 Sat Monitoring; Complete Time: 20:28 [facility] 07/11 19:49 Order name: CT Stroke Brain w/o Contrast; Complete Time: 20:47 [facility] 07/11 19:59 Order name: CT Head Angio 07/11 19:59 Order name: CT Neck Angio [facility] 07/11 20:17 Order name: Glucose, Ancillary Testing; Complete Time: 20:47 EDMS EC:16 Rate is 75 beats/min. Rhythm is regular. QRS Whitlash is Normal. RI interval is normal. QRS denisha interval is normal. QT interval is normal. No Q waves. T waves are Normal. No ST changes noted. Clinical impression: Normal ECG and No evidence of ischemia. Interpreted by me. Reviewed by me. Administered Medications: 20:05 Drug: NS 0.9% 1000 ml Route: IV; Rate: 1 bolus; Site: left antecubital; 21:05 Follow up: Response: No adverse reaction; IV Status: Completed infusion; IV Intake: mk 1000ml 20:05 Drug: foLIC Acid 1 mg Route: IVPB; Site: left antecubital; 20:40 Follow up: Response: No adverse reaction; IV Status: Completed infusion; IV Intake: mk 0.2ml 21:05 Follow up: Response: No adverse reaction; IV Status: Completed infusion; IV Intake: mk 1000ml 20:34 Drug: ACTIvase (alteplase) {Co-Signature: al4 (Cliff Duranbetter).} Route: IV mk Thrombolytics; Rate: calculated rate; Infused Over: 60 mins; 21:34 Follow up: Response: No adverse reaction mk Point of Care Testing: Blood Glucose: 20:05 Blood Glucose: 88 mg/dL; Ranges: Critical Glucose Levels:Adult <50 mg/dl or >400 mg/dl <40 mg/dl or >180 mg/dl Disposition Summary: 07/11/21 20:12 Transfer Ordered Transfer Location: [facility] denisha Reason: Higher level of care denisha Condition: Stable denisha Problem: new denisha Symptoms: have improved denisha Accepting Physician: to nicu(07/11/21 22:26) sarah Diagnosis - Cerebral infarction, unspecified - right retinal occulision denisha Forms: - Medication Reconciliation Form denisha - SBAR form denisha NIH Stroke Scale - NIH Stroke Score Date: 07/11/2021 Time: 19:49 Total Score = 2 1a. Level of Consciousness (LOC) - 0(Alert) 1b. Level of Consciousness (LOC) (Month \\T\\ Age) - 0(Both) 1c. LOC Commands (Open \\T\\ Closes Eyes/Shot Polisher And Inspector) - 0(Both) 2. Best Gaze (Lateral Gaze Paresis) - 0(Normal) 3. Visual Field Loss - 1(Partial hemianopia) 4. Facial Palsy - 1(Minor Paralysis) 5a. Left Arm: Motor (10-second hold) - 0(No drift) 5b. Right Arm: Motor (10-second hold) - 0(No drift) 6a. Left Leg: Motor (5-second hold - always test supine) - 0(No drift) 6b. Right Leg: Motor (5-second hold - always test supine) - 0(No drift) 7. Limb Ataxia (finger/nose \\T\\ heel/constantino - test with eyes open) - 0(Absent) 8. Sensory Loss (pinprick arms/legs/face) - 0(Normal) 9. Best Language: Aphasia (description/naming/reading) - 0(No aphasia) 10. Dysarthria (speech clarity - read or repeat words) - 0(Normal) 11. Extinction and Inattention (visual/tactile/auditory/spatial/personal) - 0(No abnormality) Initials: NIH Stroke Scale - NIH Stroke Score Date: 07/11/2021 Time: 20:34 Total Score = 2 1a. Level of Consciousness (LOC) - 0(Alert) 1b. Level of Consciousness (LOC) (Month \\T\\ Age) - 0(Both) 1c. LOC Commands (Open \\T\\ Closes Eyes/Shot Polisher And Inspector) - 0(Both) 2. Best Gaze (Lateral Gaze Paresis) - 0(Normal) 3. Visual Field Loss - 1(Partial hemianopia) 4. Facial Palsy - 1(Minor Paralysis) 5a. Left Arm: Motor (10-second hold) - 0(No drift) 5b. Right Arm: Motor (10-second hold) - 0(No drift) 6a. Left Leg: Motor (5-second hold - always test supine) - 0(No drift) 6b. Right Leg: Motor (5-second hold - always test supine) - 0(No drift) 7. Limb Ataxia (finger/nose \\T\\ heel/constantino - test with eyes open) - 0(Absent) 8. Sensory Loss (pinprick arms/legs/face) - 0(Normal) 9. Best Language: Aphasia (description/naming/reading) - 0(No aphasia) 10. Dysarthria (speech clarity - read or repeat words) - 0(Normal) 11. Extinction and Inattention (visual/tactile/auditory/spatial/personal) - 0(No abnormality) Initials: NIH Stroke Scale - NIH Stroke Score Date: 07/11/2021 Time: 20:39 Total Score = 2 1a. Level of Consciousness (LOC) - 0(Alert) 1b. Level of Consciousness (LOC) (Month \\T\\ Age) - 0(Both) 1c. LOC Commands (Open \\T\\ Closes Eyes/Shot Polisher And Inspector) - 0(Both) 2. Best Gaze (Lateral Gaze Paresis) - 0(Normal) 3. Visual Field Loss - 1(Partial hemianopia) 4. Facial Palsy - 1(Minor Paralysis) 5a. Left Arm: Motor (10-second hold) - 0(No drift) 5b. Right Arm: Motor (10-second hold) - 0(No drift) 6a. Left Leg: Motor (5-second hold - always test supine) - 0(No drift) 6b. Right Leg: Motor (5-second hold - always test supine) - 0(No drift) 7. Limb Ataxia (finger/nose \\T\\ heel/constantino - test with eyes open) - 0(Absent) 8. Sensory Loss (pinprick arms/legs/face) - 0(Normal) 9. Best Language: Aphasia (description/naming/reading) - 0(No aphasia) 10. Dysarthria (speech clarity - read or repeat words) - 0(Normal) 11. Extinction and Inattention (visual/tactile/auditory/spatial/personal) - 0(No abnormality) Initials: NIH Stroke Scale - NIH Stroke Score Date: 07/11/2021 Time: 20:44 Total Score = 2 1a. Level of Consciousness (LOC) - 0(Alert) 1b. Level of Consciousness (LOC) (Month \\T\\ Age) - 0(Both) 1c. LOC Commands (Open \\T\\ Closes Eyes/Shot Polisher And Inspector) - 0(Both) 2. Best Gaze (Lateral Gaze Paresis) - 0(Normal) 3. Visual Field Loss - 1(Partial hemianopia) 4. Facial Palsy - 1(Minor Paralysis) 5a. Left Arm: Motor (10-second hold) - 0(No drift) 5b. Right Arm: Motor (10-second hold) - 0(No drift) 6a. Left Leg: Motor (5-second hold - always test supine) - 0(No drift) 6b. Right Leg: Motor (5-second hold - always test supine) - 0(No drift) 7. Limb Ataxia (finger/nose \\T\\ heel/constantino - test with eyes open) - 0(Absent) 8. Sensory Loss (pinprick arms/legs/face) - 0(Normal) 9. Best Language: Aphasia (description/naming/reading) - 0(No aphasia) 10. Dysarthria (speech clarity - read or repeat words) - 0(Normal) 11. Extinction and Inattention (visual/tactile/auditory/spatial/personal) - 0(No abnormality) Initials: NIH Stroke Scale - NIH Stroke Score Date: 07/11/2021 Time: 20:49 Total Score = 2 1a. Level of Consciousness (LOC) - 0(Alert) 1b. Level of Consciousness (LOC) (Month \\T\\ Age) - 0(Both) 1c. LOC Commands (Open \\T\\ Closes Eyes/Shot Polisher And Inspector) - 0(Both) 2. Best Gaze (Lateral Gaze Paresis) - 0(Normal) 3. Visual Field Loss - 1(Partial hemianopia) 4. Facial Palsy - 1(Minor Paralysis) 5a. Left Arm: Motor (10-second hold) - 0(No drift) 5b. Right Arm: Motor (10-second hold) - 0(No drift) 6a. Left Leg: Motor (5-second hold - always test supine) - 0(No drift) 6b. Right Leg: Motor (5-second hold - always test supine) - 0(No drift) 7. Limb Ataxia (finger/nose \\T\\ heel/constantino - test with eyes open) - 0(Absent) 8. Sensory Loss (pinprick arms/legs/face) - 0(Normal) 9. Best Language: Aphasia (description/naming/reading) - 0(No aphasia) 10. Dysarthria (speech clarity - read or repeat words) - 0(Normal) 11. Extinction and Inattention (visual/tactile/auditory/spatial/personal) - 0(No abnormality) Initials: NIH Stroke Scale - NIH Stroke Score Date: 07/11/2021 Time: 20:54 Total Score = 2 1a. Level of Consciousness (LOC) - 0(Alert) 1b. Level of Consciousness (LOC) (Month \\T\\ Age) - 0(Both) 1c. LOC Commands (Open \\T\\ Closes Eyes/Shot Polisher And Inspector) - 0(Both) 2. Best Gaze (Lateral Gaze Paresis) - 0(Normal) 3. Visual Field Loss - 1(Partial hemianopia) 4. Facial Palsy - 1(Minor Paralysis) 5a. Left Arm: Motor (10-second hold) - 0(No drift) 5b. Right Arm: Motor (10-second hold) - 0(No drift) 6a. Left Leg: Motor (5-second hold - always test supine) - 0(No drift) 6b. Right Leg: Motor (5-second hold - always test supine) - 0(No drift) 7. Limb Ataxia (finger/nose \\T\\ heel/constantino - test with eyes open) - 0(Absent) 8. Sensory Loss (pinprick arms/legs/face) - 0(Normal) 9. Best Language: Aphasia (description/naming/reading) - 0(No aphasia) 10. Dysarthria (speech clarity - read or repeat words) - 0(Normal) 11. Extinction and Inattention (visual/tactile/auditory/spatial/personal) - 0(No abnormality) Initials: NIH Stroke Scale - NIH Stroke Score Date: 07/11/2021 Time: 20:59 Total Score = 2 1a. Level of Consciousness (LOC) - 0(Alert) 1b. Level of Consciousness (LOC) (Month \\T\\ Age) - 0(Both) 1c. LOC Commands (Open \\T\\ Closes Eyes/Shot Polisher And Inspector) - 0(Both) 2. Best Gaze (Lateral Gaze Paresis) - 0(Normal) 3. Visual Field Loss - 1(Partial hemianopia) 4. Facial Palsy - 1(Minor Paralysis) 5a. Left Arm: Motor (10-second hold) - 0(No drift) 5b. Right Arm: Motor (10-second hold) - 0(No drift) 6a. Left Leg: Motor (5-second hold - always test supine) - 0(No drift) 6b. Right Leg: Motor (5-second hold - always test supine) - 0(No drift) 7. Limb Ataxia (finger/nose \\T\\ heel/constantino - test with eyes open) - 0(Absent) 8. Sensory Loss (pinprick arms/legs/face) - 0(Normal) 9. Best Language: Aphasia (description/naming/reading) - 0(No aphasia) 10. Dysarthria (speech clarity - read or repeat words) - 0(Normal) 11. Extinction and Inattention (visual/tactile/auditory/spatial/personal) - 0(No abnormality) Initials: NIH Stroke Scale - NIH Stroke Score Date: 07/11/2021 Time: 21:04 Total Score = 1 1a. Level of Consciousness (LOC) - 0(Alert) 1b. Level of Consciousness (LOC) (Month \\T\\ Age) - 0(Both) 1c. LOC Commands (Open \\T\\ Closes Eyes/Shot Polisher And Inspector) - 0(Both) 2. Best Gaze (Lateral Gaze Paresis) - 0(Normal) 3. Visual Field Loss - 0(No visual loss) 4. Facial Palsy - 1(Minor Paralysis) 5a. Left Arm: Motor (10-second hold) - 0(No drift) 5b. Right Arm: Motor (10-second hold) - 0(No drift) 6a. Left Leg: Motor (5-second hold - always test supine) - 0(No drift) 6b. Right Leg: Motor (5-second hold - always test supine) - 0(No drift) 7. Limb Ataxia (finger/nose \\T\\ heel/constantino - test with eyes open) - 0(Absent) 8. Sensory Loss (pinprick arms/legs/face) - 0(Normal) 9. Best Language: Aphasia (description/naming/reading) - 0(No aphasia) 10. Dysarthria (speech clarity - read or repeat words) - 0(Normal) 11. Extinction and Inattention (visual/tactile/auditory/spatial/personal) - 0(No abnormality) Initials: NIH Stroke Scale - NIH Stroke Score Date: 07/11/2021 Time: 21:04 Total Score = 1 1a. Level of Consciousness (LOC) - 0(Alert) 1b. Level of Consciousness (LOC) (Month \\T\\ Age) - 0(Both) 1c. LOC Commands (Open \\T\\ Closes Eyes/Shot Polisher And Inspector) - 0(Both) 2. Best Gaze (Lateral Gaze Paresis) - 0(Normal) 3. Visual Field Loss - 0(No visual loss) 4. Facial Palsy - 1(Minor Paralysis) 5a. Left Arm: Motor (10-second hold) - 0(No drift) 5b. Right Arm: Motor (10-second hold) - 0(No drift) 6a. Left Leg: Motor (5-second hold - always test supine) - 0(No drift) 6b. Right Leg: Motor (5-second hold - always test supine) - 0(No drift) 7. Limb Ataxia (finger/nose \\T\\ heel/constantino - test with eyes open) - 0(Absent) 8. Sensory Loss (pinprick arms/legs/face) - 0(Normal) 9. Best Language: Aphasia (description/naming/reading) - 0(No aphasia) 10. Dysarthria (speech clarity - read or repeat words) - 0(Normal) 11. Extinction and Inattention (visual/tactile/auditory/spatial/personal) - 0(No abnormality) Initials: NIH Stroke Scale - NIH Stroke Score Date: 07/11/2021 Time: 21:09 Total Score = 0 1a. Level of Consciousness (LOC) - 0(Alert) 1b. Level of Consciousness (LOC) (Month \\T\\ Age) - 0(Both) 1c. LOC Commands (Open \\T\\ Closes Eyes/Shot Polisher And Inspector) - 0(Both) 2. Best Gaze (Lateral Gaze Paresis) - 0(Normal) 3. Visual Field Loss - 0(No visual loss) 4. Facial Palsy - 0(Normal) 5a. Left Arm: Motor (10-second hold) - 0(No drift) 5b. Right Arm: Motor (10-second hold) - 0(No drift) 6a. Left Leg: Motor (5-second hold - always test supine) - 0(No drift) 6b. Right Leg: Motor (5-second hold - always test supine) - 0(No drift) 7. Limb Ataxia (finger/nose \\T\\ heel/constantino - test with eyes open) - 0(Absent) 8. Sensory Loss (pinprick arms/legs/face) - 0(Normal) 9. Best Language: Aphasia (description/naming/reading) - 0(No aphasia) 10. Dysarthria (speech clarity - read or repeat words) - 0(Normal) 11. Extinction and Inattention (visual/tactile/auditory/spatial/personal) - 0(No abnormality) Initials: NIH Stroke Scale - NIH Stroke Score Date: 07/11/2021 Time: 21:14 Total Score = 0 1a. Level of Consciousness (LOC) - 0(Alert) 1b. Level of Consciousness (LOC) (Month \\T\\ Age) - 0(Both) 1c. LOC Commands (Open \\T\\ Closes Eyes/Shot Polisher And Inspector) - 0(Both) 2. Best Gaze (Lateral Gaze Paresis) - 0(Normal) 3. Visual Field Loss - 0(No visual loss) 4. Facial Palsy - 0(Normal) 5a. Left Arm: Motor (10-second hold) - 0(No drift) 5b. Right Arm: Motor (10-second hold) - 0(No drift) 6a. Left Leg: Motor (5-second hold - always test supine) - 0(No drift) 6b. Right Leg: Motor (5-second hold - always test supine) - 0(No drift) 7. Limb Ataxia (finger/nose \\T\\ heel/constantino - test with eyes open) - 0(Absent) 8. Sensory Loss (pinprick arms/legs/face) - 0(Normal) 9. Best Language: Aphasia (description/naming/reading) - 0(No aphasia) 10. Dysarthria (speech clarity - read or repeat words) - 0(Normal) 11. Extinction and Inattention (visual/tactile/auditory/spatial/personal) - 0(No abnormality) Initials: NIH Stroke Scale - NIH Stroke Score Date: 07/11/2021 Time: 21:19 Total Score = 0 1a. Level of Consciousness (LOC) - 0(Alert) 1b. Level of Consciousness (LOC) (Month \\T\\ Age) - 0(Both) 1c. LOC Commands (Open \\T\\ Closes Eyes/Shot Polisher And Inspector) - 0(Both) 2. Best Gaze (Lateral Gaze Paresis) - 0(Normal) 3. Visual Field Loss - 0(No visual loss) 4. Facial Palsy - 0(Normal) 5a. Left Arm: Motor (10-second hold) - 0(No drift) 5b. Right Arm: Motor (10-second hold) - 0(No drift) 6a. Left Leg: Motor (5-second hold - always test supine) - 0(No drift) 6b. Right Leg: Motor (5-second hold - always test supine) - 0(No drift) 7. Limb Ataxia (finger/nose \\T\\ heel/constantino - test with eyes open) - 0(Absent) 8. Sensory Loss (pinprick arms/legs/face) - 0(Normal) 9. Best Language: Aphasia (description/naming/reading) - 0(No aphasia) 10. Dysarthria (speech clarity - read or repeat words) - 0(Normal) 11. Extinction and Inattention (visual/tactile/auditory/spatial/personal) - 0(No abnormality) Initials: NIH Stroke Scale - NIH Stroke Score Date: 07/11/2021 Time: 21:22 Total Score = 0 1a. Level of Consciousness (LOC) - 0(Alert) 1b. Level of Consciousness (LOC) (Month \\T\\ Age) - 0(Both) 1c. LOC Commands (Open \\T\\ Closes Eyes/Shot Polisher And Inspector) - 0(Both) 2. Best Gaze (Lateral Gaze Paresis) - 0(Normal) 3. Visual Field Loss - 0(No visual loss) 4. Facial Palsy - 0(Normal) 5a. Left Arm: Motor (10-second hold) - 0(No drift) 5b. Right Arm: Motor (10-second hold) - 0(No drift) 6a. Left Leg: Motor (5-second hold - always test supine) - 0(No drift) 6b. Right Leg: Motor (5-second hold - always test supine) - 0(No drift) 7. Limb Ataxia (finger/nose \\T\\ heel/constantino - test with eyes open) - 0(Absent) 8. Sensory Loss (pinprick arms/legs/face) - 0(Normal) 9. Best Language: Aphasia (description/naming/reading) - 0(No aphasia) 10. Dysarthria (speech clarity - read or repeat words) - 0(Normal) 11. Extinction and Inattention (visual/tactile/auditory/spatial/personal) - 0(No abnormality) Initials: [facility] NIH Stroke Scale - NIH Stroke Score Date: 07/11/2021 Time: 21:24 Total Score = 0 1a. Level of Consciousness (LOC) - 0(Alert) 1b. Level of Consciousness (LOC) (Month \\T\\ Age) - 0(Both) 1c. LOC Commands (Open \\T\\ Closes Eyes/Shot Polisher And Inspector) - 0(Both) 2. Best Gaze (Lateral Gaze Paresis) - 0(Normal) 3. Visual Field Loss - 0(No visual loss) 4. Facial Palsy - 0(Normal) 5a. Left Arm: Motor (10-second hold) - 0(No drift) 5b. Right Arm: Motor (10-second hold) - 0(No drift) 6a. Left Leg: Motor (5-second hold - always test supine) - 0(No drift) 6b. Right Leg: Motor (5-second hold - always test supine) - 0(No drift) 7. Limb Ataxia (finger/nose \\T\\ heel/constantino - test with eyes open) - 0(Absent) 8. Sensory Loss (pinprick arms/legs/face) - 0(Normal) 9. Best Language: Aphasia (description/naming/reading) - 0(No aphasia) 10. Dysarthria (speech clarity - read or repeat words) - 0(Normal) 11. Extinction and Inattention (visual/tactile/auditory/spatial/personal) - 0(No abnormality) Initials: NIH Stroke Scale - NIH Stroke Score Date: 07/11/2021 Time: 21:29 Total Score = 0 1a. Level of Consciousness (LOC) - 0(Alert) 1b. Level of Consciousness (LOC) (Month \\T\\ Age) - 0(Both) 1c. LOC Commands (Open \\T\\ Closes Eyes/Shot Polisher And Inspector) - 0(Both) 2. Best Gaze (Lateral Gaze Paresis) - 0(Normal) 3. Visual Field Loss - 0(No visual loss) 4. Facial Palsy - 0(Normal) 5a. Left Arm: Motor (10-second hold) - 0(No drift) 5b. Right Arm: Motor (10-second hold) - 0(No drift) 6a. Left Leg: Motor (5-second hold - always test supine) - 0(No drift) 6b. Right Leg: Motor (5-second hold - always test supine) - 0(No drift) 7. Limb Ataxia (finger/nose \\T\\ heel/constantino - test with eyes open) - 0(Absent) 8. Sensory Loss (pinprick arms/legs/face) - 0(Normal) 9. Best Language: Aphasia (description/naming/reading) - 0(No aphasia) 10. Dysarthria (speech clarity - read or repeat words) - 0(Normal) 11. Extinction and Inattention (visual/tactile/auditory/spatial/personal) - 0(No abnormality) Initials: NIH Stroke Scale - NIH Stroke Score Date: 07/11/2021 Time: 21:34 Total Score = 0 1a. Level of Consciousness (LOC) - 0(Alert) 1b. Level of Consciousness (LOC) (Month \\T\\ Age) - 0(Both) 1c. LOC Commands (Open \\T\\ Closes Eyes/Shot Polisher And Inspector) - 0(Both) 2. Best Gaze (Lateral Gaze Paresis) - 0(Normal) 3. Visual Field Loss - 0(No visual loss) 4. Facial Palsy - 0(Normal) 5a. Left Arm: Motor (10-second hold) - 0(No drift) 5b. Right Arm: Motor (10-second hold) - 0(No drift) 6a. Left Leg: Motor (5-second hold - always test supine) - 0(No drift) 6b. Right Leg: Motor (5-second hold - always test supine) - 0(No drift) 7. Limb Ataxia (finger/nose \\T\\ heel/constantino - test with eyes open) - 0(Absent) 8. Sensory Loss (pinprick arms/legs/face) - 0(Normal) 9. Best Language: Aphasia (description/naming/reading) - 0(No aphasia) 10. Dysarthria (speech clarity - read or repeat words) - 0(Normal) 11. Extinction and Inattention (visual/tactile/auditory/spatial/personal) - 0(No abnormality) Initials: NIH Stroke Scale - NIH Stroke Score Date: 07/11/2021 Time: 21:49 Total Score = 0 1a. Level of Consciousness (LOC) - 0(Alert) 1b. Level of Consciousness (LOC) (Month \\T\\ Age) - 0(Both) 1c. LOC Commands (Open \\T\\ Closes Eyes/Shot Polisher And Inspector) - 0(Both) 2. Best Gaze (Lateral Gaze Paresis) - 0(Normal) 3. Visual Field Loss - 0(No visual loss) 4. Facial Palsy - 0(Normal) 5a. Left Arm: Motor (10-second hold) - 0(No drift) 5b. Right Arm: Motor (10-second hold) - 0(No drift) 6a. Left Leg: Motor (5-second hold - always test supine) - 0(No drift) 6b. Right Leg: Motor (5-second hold - always test supine) - 0(No drift) 7. Limb Ataxia (finger/nose \\T\\ heel/constantino - test with eyes open) - 0(Absent) 8. Sensory Loss (pinprick arms/legs/face) - 0(Normal) 9. Best Language: Aphasia (description/naming/reading) - 0(No aphasia) 10. Dysarthria (speech clarity - read or repeat words) - 0(Normal) 11. Extinction and Inattention (visual/tactile/auditory/spatial/personal) - 0(No abnormality) Initials: NIH Stroke Scale - NIH Stroke Score Date: 07/11/2021 Time: 22:04 Total Score = 0 1a. Level of Consciousness (LOC) - 0(Alert) 1b. Level of Consciousness (LOC) (Month \\T\\ Age) - 0(Both) 1c. LOC Commands (Open \\T\\ Closes Eyes/Shot Polisher And Inspector) - 0(Both) 2. Best Gaze (Lateral Gaze Paresis) - 0(Normal) 3. Visual Field Loss - 0(No visual loss) 4. Facial Palsy - 0(Normal) 5a. Left Arm: Motor (10-second hold) - 0(No drift) 5b. Right Arm: Motor (10-second hold) - 0(No drift) 6a. Left Leg: Motor (5-second hold - always test supine) - 0(No drift) 6b. Right Leg: Motor (5-second hold - always test supine) - 0(No drift) 7. Limb Ataxia (finger/nose \\T\\ heel/constantino - test with eyes open) - 0(Absent) 8. Sensory Loss (pinprick arms/legs/face) - 0(Normal) 9. Best Language: Aphasia (description/naming/reading) - 0(No aphasia) 10. Dysarthria (speech clarity - read or repeat words) - 0(Normal) 11. Extinction and Inattention (visual/tactile/auditory/spatial/personal) - 0(No abnormality) Initials: Signatures: Dispatcher [employer] Tom Espinoza MD MD cha Ballard, Brenda, RN RN Lilian Nicholas RN YEISON mcgarry Corrections: (The following items were deleted from the chart) 22:26 20:12 to [facility] denisha smith
--- NOTE | 2021-07-11 20:13 | ER ---
Nurse's Notes [facility] Name: Chris Ramirez Age: 75 yrs Sex: Male : 1945 Arrival Date: 07/11/2021 Time: 19:44 Bed 2 Private MD: Diagnosis: Cerebral infarction, unspecified-right retinal occulision Presentation: 07/11 19:46 Chief complaint: Patient states: he sat down in his chair 3 hours ago and had a sudden bb vision loss from his right eye "I saw black" but states his vision has come back somewhat although it is still blurry. Coronavirus screen: At this time, the client does not indicate any symptoms associated with coronavirus-19. Ebola Screen: No symptoms or risks identified at this time. Initial Sepsis Screen: Does the patient meet any 2 criteria? No. Patient's initial sepsis screen is negative. Does the patient have a suspected source of infection? No. Patient's initial sepsis screen is negative. Risk Assessment: Do you want to hurt yourself or someone else? Patient reports no desire to harm self or others. Onset of symptoms was July 11, 2021 at 17:00. 19:46 Method Of Arrival: Ambulatory bb 19:46 Acuity: JACK 2 bb 20:57 Pre-hospital glucose is not applicable to this patient. Triage Assessment: 19:49 General: Appears in no apparent distress. Behavior is cooperative. Neuro: Level of Consciousness is awake, alert, obeys commands, Oriented to person, place, time, situation, Business Coordinator are equal bilaterally Moves all extremities. Speech is normal, Facial droop on right, Pupils are Pupil Size: 4 bilaterally Reports blurred vision reports decreased field of vision. Cardiovascular: Heart tones S1 S2 Capillary refill < 3 seconds in bilateral fingers toes Clubbing of nail beds is absent JVD is absent Patient's skin is warm and dry. Pulses are 3+ in right radial artery, right dorsalis pedis artery, left radial artery and left dorsalis pedis artery. Respiratory: Airway is patent Trachea midline Respiratory effort is even, Respiratory pattern is Breath sounds are clear. GI: Abdomen is flat, non-distended, Bowel sounds present X 4 quads. : No signs and/or symptoms were reported regarding the genitourinary system. Derm: Skin is intact, is healthy with good turgor, Skin is dry, Skin is pink, warm \\T\\ dry. Skin temperature is warm. Musculoskeletal: Circulation, motion, and sensation intact. Capillary refill < 3 seconds, in bilateral fingers. toes. Range of motion: intact in all extremities. 22:25 The onset of the patients symptoms was July 11, 2021 at 15:30. Stroke Activation: Physician: Stroke Attending; Name: Santy; Notified At: 19:49; Arrived At: Physician: Chief Stroke Resident; Name: ; Notified At: 19:49; Arrived At: Physician: Stroke Resident; Name: ; Notified At: 19:49; Arrived At: Physician: ED Attending; Name: ; Notified At: 19:49; Arrived At: Physician: ED Resident; Name: ; Notified At: 19:49; Arrived At: Historical: - Allergies: 20:01 No Known Allergies; bb - PMHx: 20:01 Hypertension; CAD; high cholesterol; bb - PSHx: 20:01 Coronary artery bypass graft; Urolift; bb - Immunization history:: Moderna x 3. - Social history:: Smoking status: Patient denies any tobacco usage or history of. - Family history:: not pertinent. Screenin:56 Abuse screen: Denies threats or abuse. Nutritional screening: No deficits noted. Tuberculosis screening: No symptoms or risk factors identified. Fall Risk No fall in past 12 months (0 pts). No secondary diagnosis (0 pts). IV access (20 points). Ambulatory Aid- None/Bed Rest/Nurse Assist (0 pts). Gait- Normal/Bed Rest/Wheelchair (0 pts) Mental Status- Oriented to own ability (0 pts). Total [place]de Fall Scale indicates No Risk (0-24 pts). Assessment: 19:49 VAN Scoring: Arm Drift: Patients demonstrates NO arm weakness. Patient is VAN Negative. Visual Disturbance: Field Cut: Abnormal visual vega noted. Provider notified of +VAN scoring. Santy DAMICO at bedside Aphasia: No aphasia noted. Neglect: No neglect noted. Patient has been NPO before screening. The patient does not exhibit slurred or garbled speech. The patient is not exhibiting difficulty speaking. The patient does not exhibit difficulty understanding words. The patient is unable to swallow own secretions without drooling or the need for suction. Patient tolerated one teaspoon of water. No drooling, immediate coughing, gurgling, or clearing of the throat was noted. The patient tolerated 90mL of water. No drooling, immediate coughing, gurgling, or clearing of the throat was noted. The patient passed the bedside swallow screening. Oral medications may be given as ordered. Contact Physician for further diet orders. Provider notified of bedside swallow screening results: Tom Madera MD. Neuro: Level of Consciousness is awake, alert, obeys commands, Oriented to person, place, time, situation, Business Coordinator are equal bilaterally Moves all extremities. Gait is steady, Speech is normal, Facial droop on right, Pupils are Pupil Size: 4 bilaterally Intact decreased field of vision and slight R facial droop. 19:55 Reassessment: pt to CT scan via stretcher accompanied by this RN. bb 20:15 T-PA (Activase) Screening: Indications: Definite evidence of stroke, ischemic, embolic, mk or hypertensive: Yes. Treatment will start within 4.5 hours onset of symptoms: Yes. No evidence of intracranial hemorrhage or CT of head and no evidence of peripheral hemorrhage or recent CVA: Yes. Consent for thrombolytic therapy: Yes. Pain: Denies pain. 21:02 The patient is alert, and able to follow commands. mk 22:04 Reassessment: Patient and/or family updated on plan of care and expected duration. Pain mk level reassessed. Patient is alert, oriented x 3, equal unlabored respirations, skin warm/dry/pink. pt able to stand at side of bed and use urinal, pt had blood tinged urine, RN notified Santy DAMICO . Vital Signs: 19:46 BP 170 / 87; Pulse 81; Resp 16 S; Temp 97.7(O); Pulse Ox 100% on R/A; Weight 82.55 kg bb (R); Height 6 ft. 1 in. (185.42 cm) (R); Pain 0/10; 19:59 BP 139 / 80; Pulse 71; Resp 18; Pulse Ox 100% on R/A; mk 20:15 BP 144 / 76; Pulse 68; Resp 16; Pulse Ox 100% on R/A; mk 20:34 BP 137 / 68; Pulse 69; Resp 18; Pulse Ox 100% on R/A; mk 20:39 BP 137 / 73; Pulse 71; Resp 15; Pulse Ox 100% on R/A; mk 20:44 BP 142 / 81; Pulse 72; Resp 15; Pulse Ox 100% on R/A; mk 20:49 BP 134 / 79; Pulse 73; Resp 17; Pulse Ox 100% on R/A; mk 21:04 BP 133 / 81; Pulse 79; Resp 20; Pulse Ox 100% on R/A; mk 21:09 BP 130 / 87; Pulse 89; Resp 17; Pulse Ox 99% on R/A; mk 21:14 BP 143 / 82; Pulse 87; Resp 16; Pulse Ox 100% on R/A; mk 21:19 BP 137 / 71; Pulse 85; Resp 21; Pulse Ox 100% on R/A; mk 21:24 BP 135 / 88; Pulse 86; Resp 18; Pulse Ox 99% on R/A; mk 21:29 BP 139 / 74; Pulse 87; Resp 21; Pulse Ox 99% on R/A; mk 21:34 BP 148 / 77; Pulse 79; Resp 16; Pulse Ox 98% on R/A; mk 21:49 BP 139 / 81; Pulse 79; Resp 16; Pulse Ox 99% on R/A; mk 22:04 BP 160 / 89; Pulse 80; Resp 17; Pulse Ox 100% on R/A; mk 19:46 Body Mass Index 24.01 (82.55 kg, 185.42 cm) bb [place] Coma Score: 19:59 Eye Response: spontaneous(4). Verbal Response: oriented(5). Motor Response: obeys mk commands(6). Total: 15. 20:15 Eye Response: spontaneous(4). Verbal Response: oriented(5). Motor Response: obeys mk commands(6). Total: 15. 20:34 Eye Response: spontaneous(4). Verbal Response: oriented(5). Motor Response: obeys mk commands(6). Total: 15. 20:39 Eye Response: spontaneous(4). Verbal Response: oriented(5). Motor Response: obeys mk commands(6). Total: 15. 20:44 Eye Response: spontaneous(4). Verbal Response: oriented(5). Motor Response: obeys mk commands(6). Total: 15. 20:49 Eye Response: spontaneous(4). Verbal Response: oriented(5). Motor Response: obeys mk commands(6). Total: 15. 21:04 Eye Response: spontaneous(4). Verbal Response: oriented(5). Motor Response: obeys mk commands(6). Total: 15. 21:09 Eye Response: spontaneous(4). Verbal Response: oriented(5). Motor Response: obeys mk commands(6). Total: 15. 21:14 Eye Response: spontaneous(4). Verbal Response: oriented(5). Motor Response: obeys mk commands(6). Total: 15. 21:19 Eye Response: spontaneous(4). Verbal Response: oriented(5). Motor Response: obeys mk commands(6). Total: 15. 21:22 Eye Response: spontaneous(4). Verbal Response: oriented(5). Motor Response: obeys denisha commands(6). Total: 15. 21:24 Eye Response: spontaneous(4). Verbal Response: oriented(5). Motor Response: obeys mk commands(6). Total: 15. 21:29 Eye Response: spontaneous(4). Verbal Response: oriented(5). Motor Response: obeys mk commands(6). Total: 15. 21:34 Eye Response: spontaneous(4). Verbal Response: oriented(5). Motor Response: obeys mk commands(6). Total: 15. 21:49 Eye Response: spontaneous(4). Verbal Response: oriented(5). Motor Response: obeys mk commands(6). Total: 15. 22:04 Eye Response: spontaneous(4). Verbal Response: oriented(5). Motor Response: obeys mk commands(6). Total: 15. NIH Stroke Scale Scores: 19:49 NIHSS Score: 2 mk 20:34 NIHSS Score: 2 mk 20:39 NIHSS Score: 2 mk 20:44 NIHSS Score: 2 mk 20:49 NIHSS Score: 2 mk 20:54 NIHSS Score: 2 mk 20:59 NIHSS Score: 2 mk 21:04 NIHSS Score: 1 mk 21:04 NIHSS Score: 1 mk 21:09 NIHSS Score: 0 mk 21:14 NIHSS Score: 0 mk 21:19 NIHSS Score: 0 mk 21:22 NIHSS Score: 0 denisha 21:24 NIHSS Score: 0 mk 21:29 NIHSS Score: 0 mk 21:34 NIHSS Score: 0 mk 21:49 NIHSS Score: 0 mk 22:04 NIHSS Score: 0 ED Course: 19:44 Patient arrived in ED. wm 19:46 Tom Madera MD is Attending Physician. denisha 19:46 Arm band placed on Patient placed in an exam room, on a stretcher, on lace sewer, bb on pulse oximetry. 19:46 Patient has correct armband on for positive identification. Placed in gown. Bed in low mk position. Call light in reach. Side rails up X 1. Seizure precautions initiated. 19:56 CT Stroke Brain w/o Contrast In Process Unspecified. EDMS 20:01 Triage completed. bb 20:07 XRAY Chest (1 view) In Process Unspecified. EDMS 20:11 Lilian Wolfe, RN is Primary Nurse. mk 20:15 Inserted saline lock: 18 gauge in right antecubital area, using aseptic technique. mk 20:15 Inserted saline lock: 18 gauge in left antecubital area, using aseptic technique. mk 20:28 Troponin HS Sent. mk 20:28 NT PRO-BNP Sent. mk 20:28 Magnesium Sent. mk 20:28 LFT's Sent. mk 20:28 CBC with Diff Sent. mk 20:28 Basic Metabolic Panel Sent. mk 20:29 CRP Sent. mk 20:29 Sed Rate Sent. mk 20:29 Basic Metabolic Panel Sent. mk 21:02 No provider procedures requiring assistance completed. mk 21:24 CT Head Angio In Process Unspecified. EDMS 21:24 CT Neck Angio In Process Unspecified. EDMS 22:25 Patient transferred, IV remains in place. mk Administered Medications: 20:05 Drug: NS 0.9% 1000 ml Route: IV; Rate: 1 bolus; Site: left antecubital; mk 21:05 Follow up: Response: No adverse reaction; IV Status: Completed infusion; IV Intake: mk 1000ml 20:05 Drug: foLIC Acid 1 mg Route: IVPB; Site: left antecubital; mk 20:40 Follow up: Response: No adverse reaction; IV Status: Completed infusion; IV Intake: mk 0.2ml 21:05 Follow up: Response: No adverse reaction; IV Status: Completed infusion; IV Intake: mk 1000ml 20:34 Drug: ACTIvase (alteplase) {Co-Signature: al4 (Cliff Morales).} Route: IV mk Thrombolytics; Rate: calculated rate; Infused Over: 60 mins; 21:34 Follow up: Response: No adverse reaction Point of Care Testing: Blood Glucose: 20:05 Blood Glucose: 88 mg/dL; mk Ranges: Intake: 20:40 IV: 0ml; Total: 0ml. mk 21:05 IV: 1000ml; Total: 1000ml. mk 21:05 IV: 1000ml; Total: 2000ml. Outcome: 20:12 ER care complete, transfer ordered by . denisha 22:25 Transferred by ground EMS to [facility], Note: report called to accepting RN and given to ground transport EMS 22:25 critical 22:25 Instructed on the need for transfer. 22:26 Transferred 22:26 Patient left the ED. NIH Stroke Scale - NIH Stroke Score Date: 07/11/2021 Time: 19:49 Total Score = 2 1a. Level of Consciousness (LOC) - 0(Alert) 1b. Level of Consciousness (LOC) (Month \\T\\ Age) - 0(Both) 1c. LOC Commands (Open \\T\\ Closes Eyes/Drafter Topographical) - 0(Both) 2. Best Gaze (Lateral Gaze Paresis) - 0(Normal) 3. Visual Field Loss - 1(Partial hemianopia) 4. Facial Palsy - 1(Minor Paralysis) 5a. Left Arm: Motor (10-second hold) - 0(No drift) 5b. Right Arm: Motor (10-second hold) - 0(No drift) 6a. Left Leg: Motor (5-second hold - always test supine) - 0(No drift) 6b. Right Leg: Motor (5-second hold - always test supine) - 0(No drift) 7. Limb Ataxia (finger/nose \\T\\ heel/constantino - test with eyes open) - 0(Absent) 8. Sensory Loss (pinprick arms/legs/face) - 0(Normal) 9. Best Language: Aphasia (description/naming/reading) - 0(No aphasia) 10. Dysarthria (speech clarity - read or repeat words) - 0(Normal) 11. Extinction and Inattention (visual/tactile/auditory/spatial/personal) - 0(No abnormality) Initials: NIH Stroke Scale - NIH Stroke Score Date: 07/11/2021 Time: 20:34 Total Score = 2 1a. Level of Consciousness (LOC) - 0(Alert) 1b. Level of Consciousness (LOC) (Month \\T\\ Age) - 0(Both) 1c. LOC Commands (Open \\T\\ Closes Eyes/Drafter Topographical) - 0(Both) 2. Best Gaze (Lateral Gaze Paresis) - 0(Normal) 3. Visual Field Loss - 1(Partial hemianopia) 4. Facial Palsy - 1(Minor Paralysis) 5a. Left Arm: Motor (10-second hold) - 0(No drift) 5b. Right Arm: Motor (10-second hold) - 0(No drift) 6a. Left Leg: Motor (5-second hold - always test supine) - 0(No drift) 6b. Right Leg: Motor (5-second hold - always test supine) - 0(No drift) 7. Limb Ataxia (finger/nose \\T\\ heel/constantino - test with eyes open) - 0(Absent) 8. Sensory Loss (pinprick arms/legs/face) - 0(Normal) 9. Best Language: Aphasia (description/naming/reading) - 0(No aphasia) 10. Dysarthria (speech clarity - read or repeat words) - 0(Normal) 11. Extinction and Inattention (visual/tactile/auditory/spatial/personal) - 0(No abnormality) Initials: NIH Stroke Scale - NIH Stroke Score Date: 07/11/2021 Time: 20:39 Total Score = 2 1a. Level of Consciousness (LOC) - 0(Alert) 1b. Level of Consciousness (LOC) (Month \\T\\ Age) - 0(Both) 1c. LOC Commands (Open \\T\\ Closes Eyes/Drafter Topographical) - 0(Both) 2. Best Gaze (Lateral Gaze Paresis) - 0(Normal) 3. Visual Field Loss - 1(Partial hemianopia) 4. Facial Palsy - 1(Minor Paralysis) 5a. Left Arm: Motor (10-second hold) - 0(No drift) 5b. Right Arm: Motor (10-second hold) - 0(No drift) 6a. Left Leg: Motor (5-second hold - always test supine) - 0(No drift) 6b. Right Leg: Motor (5-second hold - always test supine) - 0(No drift) 7. Limb Ataxia (finger/nose \\T\\ heel/constantino - test with eyes open) - 0(Absent) 8. Sensory Loss (pinprick arms/legs/face) - 0(Normal) 9. Best Language: Aphasia (description/naming/reading) - 0(No aphasia) 10. Dysarthria (speech clarity - read or repeat words) - 0(Normal) 11. Extinction and Inattention (visual/tactile/auditory/spatial/personal) - 0(No abnormality) Initials: NIH Stroke Scale - NIH Stroke Score Date: 07/11/2021 Time: 20:44 Total Score = 2 1a. Level of Consciousness (LOC) - 0(Alert) 1b. Level of Consciousness (LOC) (Month \\T\\ Age) - 0(Both) 1c. LOC Commands (Open \\T\\ Closes Eyes/Drafter Topographical) - 0(Both) 2. Best Gaze (Lateral Gaze Paresis) - 0(Normal) 3. Visual Field Loss - 1(Partial hemianopia) 4. Facial Palsy - 1(Minor Paralysis) 5a. Left Arm: Motor (10-second hold) - 0(No drift) 5b. Right Arm: Motor (10-second hold) - 0(No drift) 6a. Left Leg: Motor (5-second hold - always test supine) - 0(No drift) 6b. Right Leg: Motor (5-second hold - always test supine) - 0(No drift) 7. Limb Ataxia (finger/nose \\T\\ heel/constantino - test with eyes open) - 0(Absent) 8. Sensory Loss (pinprick arms/legs/face) - 0(Normal) 9. Best Language: Aphasia (description/naming/reading) - 0(No aphasia) 10. Dysarthria (speech clarity - read or repeat words) - 0(Normal) 11. Extinction and Inattention (visual/tactile/auditory/spatial/personal) - 0(No abnormality) Initials: NIH Stroke Scale - NIH Stroke Score Date: 07/11/2021 Time: 20:49 Total Score = 2 1a. Level of Consciousness (LOC) - 0(Alert) 1b. Level of Consciousness (LOC) (Month \\T\\ Age) - 0(Both) 1c. LOC Commands (Open \\T\\ Closes Eyes/Drafter Topographical) - 0(Both) 2. Best Gaze (Lateral Gaze Paresis) - 0(Normal) 3. Visual Field Loss - 1(Partial hemianopia) 4. Facial Palsy - 1(Minor Paralysis) 5a. Left Arm: Motor (10-second hold) - 0(No drift) 5b. Right Arm: Motor (10-second hold) - 0(No drift) 6a. Left Leg: Motor (5-second hold - always test supine) - 0(No drift) 6b. Right Leg: Motor (5-second hold - always test supine) - 0(No drift) 7. Limb Ataxia (finger/nose \\T\\ heel/constantino - test with eyes open) - 0(Absent) 8. Sensory Loss (pinprick arms/legs/face) - 0(Normal) 9. Best Language: Aphasia (description/naming/reading) - 0(No aphasia) 10. Dysarthria (speech clarity - read or repeat words) - 0(Normal) 11. Extinction and Inattention (visual/tactile/auditory/spatial/personal) - 0(No abnormality) Initials: NIH Stroke Scale - NIH Stroke Score Date: 07/11/2021 Time: 20:54 Total Score = 2 1a. Level of Consciousness (LOC) - 0(Alert) 1b. Level of Consciousness (LOC) (Month \\T\\ Age) - 0(Both) 1c. LOC Commands (Open \\T\\ Closes Eyes/Drafter Topographical) - 0(Both) 2. Best Gaze (Lateral Gaze Paresis) - 0(Normal) 3. Visual Field Loss - 1(Partial hemianopia) 4. Facial Palsy - 1(Minor Paralysis) 5a. Left Arm: Motor (10-second hold) - 0(No drift) 5b. Right Arm: Motor (10-second hold) - 0(No drift) 6a. Left Leg: Motor (5-second hold - always test supine) - 0(No drift) 6b. Right Leg: Motor (5-second hold - always test supine) - 0(No drift) 7. Limb Ataxia (finger/nose \\T\\ heel/constantino - test with eyes open) - 0(Absent) 8. Sensory Loss (pinprick arms/legs/face) - 0(Normal) 9. Best Language: Aphasia (description/naming/reading) - 0(No aphasia) 10. Dysarthria (speech clarity - read or repeat words) - 0(Normal) 11. Extinction and Inattention (visual/tactile/auditory/spatial/personal) - 0(No abnormality) Initials: NIH Stroke Scale - NIH Stroke Score Date: 07/11/2021 Time: 20:59 Total Score = 2 1a. Level of Consciousness (LOC) - 0(Alert) 1b. Level of Consciousness (LOC) (Month \\T\\ Age) - 0(Both) 1c. LOC Commands (Open \\T\\ Closes Eyes/Drafter Topographical) - 0(Both) 2. Best Gaze (Lateral Gaze Paresis) - 0(Normal) 3. Visual Field Loss - 1(Partial hemianopia) 4. Facial Palsy - 1(Minor Paralysis) 5a. Left Arm: Motor (10-second hold) - 0(No drift) 5b. Right Arm: Motor (10-second hold) - 0(No drift) 6a. Left Leg: Motor (5-second hold - always test supine) - 0(No drift) 6b. Right Leg: Motor (5-second hold - always test supine) - 0(No drift) 7. Limb Ataxia (finger/nose \\T\\ heel/constantino - test with eyes open) - 0(Absent) 8. Sensory Loss (pinprick arms/legs/face) - 0(Normal) 9. Best Language: Aphasia (description/naming/reading) - 0(No aphasia) 10. Dysarthria (speech clarity - read or repeat words) - 0(Normal) 11. Extinction and Inattention (visual/tactile/auditory/spatial/personal) - 0(No abnormality) Initials: NIH Stroke Scale - NIH Stroke Score Date: 07/11/2021 Time: 21:04 Total Score = 1 1a. Level of Consciousness (LOC) - 0(Alert) 1b. Level of Consciousness (LOC) (Month \\T\\ Age) - 0(Both) 1c. LOC Commands (Open \\T\\ Closes Eyes/Drafter Topographical) - 0(Both) 2. Best Gaze (Lateral Gaze Paresis) - 0(Normal) 3. Visual Field Loss - 0(No visual loss) 4. Facial Palsy - 1(Minor Paralysis) 5a. Left Arm: Motor (10-second hold) - 0(No drift) 5b. Right Arm: Motor (10-second hold) - 0(No drift) 6a. Left Leg: Motor (5-second hold - always test supine) - 0(No drift) 6b. Right Leg: Motor (5-second hold - always test supine) - 0(No drift) 7. Limb Ataxia (finger/nose \\T\\ heel/constantino - test with eyes open) - 0(Absent) 8. Sensory Loss (pinprick arms/legs/face) - 0(Normal) 9. Best Language: Aphasia (description/naming/reading) - 0(No aphasia) 10. Dysarthria (speech clarity - read or repeat words) - 0(Normal) 11. Extinction and Inattention (visual/tactile/auditory/spatial/personal) - 0(No abnormality) Initials: NIH Stroke Scale - NIH Stroke Score Date: 07/11/2021 Time: 21:04 Total Score = 1 1a. Level of Consciousness (LOC) - 0(Alert) 1b. Level of Consciousness (LOC) (Month \\T\\ Age) - 0(Both) 1c. LOC Commands (Open \\T\\ Closes Eyes/Drafter Topographical) - 0(Both) 2. Best Gaze (Lateral Gaze Paresis) - 0(Normal) 3. Visual Field Loss - 0(No visual loss) 4. Facial Palsy - 1(Minor Paralysis) 5a. Left Arm: Motor (10-second hold) - 0(No drift) 5b. Right Arm: Motor (10-second hold) - 0(No drift) 6a. Left Leg: Motor (5-second hold - always test supine) - 0(No drift) 6b. Right Leg: Motor (5-second hold - always test supine) - 0(No drift) 7. Limb Ataxia (finger/nose \\T\\ heel/constantino - test with eyes open) - 0(Absent) 8. Sensory Loss (pinprick arms/legs/face) - 0(Normal) 9. Best Language: Aphasia (description/naming/reading) - 0(No aphasia) 10. Dysarthria (speech clarity - read or repeat words) - 0(Normal) 11. Extinction and Inattention (visual/tactile/auditory/spatial/personal) - 0(No abnormality) Initials: NIH Stroke Scale - NIH Stroke Score Date: 07/11/2021 Time: 21:09 Total Score = 0 1a. Level of Consciousness (LOC) - 0(Alert) 1b. Level of Consciousness (LOC) (Month \\T\\ Age) - 0(Both) 1c. LOC Commands (Open \\T\\ Closes Eyes/Drafter Topographical) - 0(Both) 2. Best Gaze (Lateral Gaze Paresis) - 0(Normal) 3. Visual Field Loss - 0(No visual loss) 4. Facial Palsy - 0(Normal) 5a. Left Arm: Motor (10-second hold) - 0(No drift) 5b. Right Arm: Motor (10-second hold) - 0(No drift) 6a. Left Leg: Motor (5-second hold - always test supine) - 0(No drift) 6b. Right Leg: Motor (5-second hold - always test supine) - 0(No drift) 7. Limb Ataxia (finger/nose \\T\\ heel/constantino - test with eyes open) - 0(Absent) 8. Sensory Loss (pinprick arms/legs/face) - 0(Normal) 9. Best Language: Aphasia (description/naming/reading) - 0(No aphasia) 10. Dysarthria (speech clarity - read or repeat words) - 0(Normal) 11. Extinction and Inattention (visual/tactile/auditory/spatial/personal) - 0(No abnormality) Initials: NIH Stroke Scale - NIH Stroke Score Date: 07/11/2021 Time: 21:14 Total Score = 0 1a. Level of Consciousness (LOC) - 0(Alert) 1b. Level of Consciousness (LOC) (Month \\T\\ Age) - 0(Both) 1c. LOC Commands (Open \\T\\ Closes Eyes/Drafter Topographical) - 0(Both) 2. Best Gaze (Lateral Gaze Paresis) - 0(Normal) 3. Visual Field Loss - 0(No visual loss) 4. Facial Palsy - 0(Normal) 5a. Left Arm: Motor (10-second hold) - 0(No drift) 5b. Right Arm: Motor (10-second hold) - 0(No drift) 6a. Left Leg: Motor (5-second hold - always test supine) - 0(No drift) 6b. Right Leg: Motor (5-second hold - always test supine) - 0(No drift) 7. Limb Ataxia (finger/nose \\T\\ heel/constantino - test with eyes open) - 0(Absent) 8. Sensory Loss (pinprick arms/legs/face) - 0(Normal) 9. Best Language: Aphasia (description/naming/reading) - 0(No aphasia) 10. Dysarthria (speech clarity - read or repeat words) - 0(Normal) 11. Extinction and Inattention (visual/tactile/auditory/spatial/personal) - 0(No abnormality) Initials: NIH Stroke Scale - NIH Stroke Score Date: 07/11/2021 Time: 21:19 Total Score = 0 1a. Level of Consciousness (LOC) - 0(Alert) 1b. Level of Consciousness (LOC) (Month \\T\\ Age) - 0(Both) 1c. LOC Commands (Open \\T\\ Closes Eyes/Drafter Topographical) - 0(Both) 2. Best Gaze (Lateral Gaze Paresis) - 0(Normal) 3. Visual Field Loss - 0(No visual loss) 4. Facial Palsy - 0(Normal) 5a. Left Arm: Motor (10-second hold) - 0(No drift) 5b. Right Arm: Motor (10-second hold) - 0(No drift) 6a. Left Leg: Motor (5-second hold - always test supine) - 0(No drift) 6b. Right Leg: Motor (5-second hold - always test supine) - 0(No drift) 7. Limb Ataxia (finger/nose \\T\\ heel/constantino - test with eyes open) - 0(Absent) 8. Sensory Loss (pinprick arms/legs/face) - 0(Normal) 9. Best Language: Aphasia (description/naming/reading) - 0(No aphasia) 10. Dysarthria (speech clarity - read or repeat words) - 0(Normal) 11. Extinction and Inattention (visual/tactile/auditory/spatial/personal) - 0(No abnormality) Initials: NIH Stroke Scale - NIH Stroke Score Date: 07/11/2021 Time: 21:22 Total Score = 0 1a. Level of Consciousness (LOC) - 0(Alert) 1b. Level of Consciousness (LOC) (Month \\T\\ Age) - 0(Both) 1c. LOC Commands (Open \\T\\ Closes Eyes/Drafter Topographical) - 0(Both) 2. Best Gaze (Lateral Gaze Paresis) - 0(Normal) 3. Visual Field Loss - 0(No visual loss) 4. Facial Palsy - 0(Normal) 5a. Left Arm: Motor (10-second hold) - 0(No drift) 5b. Right Arm: Motor (10-second hold) - 0(No drift) 6a. Left Leg: Motor (5-second hold - always test supine) - 0(No drift) 6b. Right Leg: Motor (5-second hold - always test supine) - 0(No drift) 7. Limb Ataxia (finger/nose \\T\\ heel/constantino - test with eyes open) - 0(Absent) 8. Sensory Loss (pinprick arms/legs/face) - 0(Normal) 9. Best Language: Aphasia (description/naming/reading) - 0(No aphasia) 10. Dysarthria (speech clarity - read or repeat words) - 0(Normal) 11. Extinction and Inattention (visual/tactile/auditory/spatial/personal) - 0(No abnormality) Initials: [facility] NIH Stroke Scale - NIH Stroke Score Date: 07/11/2021 Time: 21:24 Total Score = 0 1a. Level of Consciousness (LOC) - 0(Alert) 1b. Level of Consciousness (LOC) (Month \\T\\ Age) - 0(Both) 1c. LOC Commands (Open \\T\\ Closes Eyes/Drafter Topographical) - 0(Both) 2. Best Gaze (Lateral Gaze Paresis) - 0(Normal) 3. Visual Field Loss - 0(No visual loss) 4. Facial Palsy - 0(Normal) 5a. Left Arm: Motor (10-second hold) - 0(No drift) 5b. Right Arm: Motor (10-second hold) - 0(No drift) 6a. Left Leg: Motor (5-second hold - always test supine) - 0(No drift) 6b. Right Leg: Motor (5-second hold - always test supine) - 0(No drift) 7. Limb Ataxia (finger/nose \\T\\ heel/constantino - test with eyes open) - 0(Absent) 8. Sensory Loss (pinprick arms/legs/face) - 0(Normal) 9. Best Language: Aphasia (description/naming/reading) - 0(No aphasia) 10. Dysarthria (speech clarity - read or repeat words) - 0(Normal) 11. Extinction and Inattention (visual/tactile/auditory/spatial/personal) - 0(No abnormality) Initials: NIH Stroke Scale - NIH Stroke Score Date: 07/11/2021 Time: 21:29 Total Score = 0 1a. Level of Consciousness (LOC) - 0(Alert) 1b. Level of Consciousness (LOC) (Month \\T\\ Age) - 0(Both) 1c. LOC Commands (Open \\T\\ Closes Eyes/Drafter Topographical) - 0(Both) 2. Best Gaze (Lateral Gaze Paresis) - 0(Normal) 3. Visual Field Loss - 0(No visual loss) 4. Facial Palsy - 0(Normal) 5a. Left Arm: Motor (10-second hold) - 0(No drift) 5b. Right Arm: Motor (10-second hold) - 0(No drift) 6a. Left Leg: Motor (5-second hold - always test supine) - 0(No drift) 6b. Right Leg: Motor (5-second hold - always test supine) - 0(No drift) 7. Limb Ataxia (finger/nose \\T\\ heel/constantino - test with eyes open) - 0(Absent) 8. Sensory Loss (pinprick arms/legs/face) - 0(Normal) 9. Best Language: Aphasia (description/naming/reading) - 0(No aphasia) 10. Dysarthria (speech clarity - read or repeat words) - 0(Normal) 11. Extinction and Inattention (visual/tactile/auditory/spatial/personal) - 0(No abnormality) Initials: NIH Stroke Scale - NIH Stroke Score Date: 07/11/2021 Time: 21:34 Total Score = 0 1a. Level of Consciousness (LOC) - 0(Alert) 1b. Level of Consciousness (LOC) (Month \\T\\ Age) - 0(Both) 1c. LOC Commands (Open \\T\\ Closes Eyes/Drafter Topographical) - 0(Both) 2. Best Gaze (Lateral Gaze Paresis) - 0(Normal) 3. Visual Field Loss - 0(No visual loss) 4. Facial Palsy - 0(Normal) 5a. Left Arm: Motor (10-second hold) - 0(No drift) 5b. Right Arm: Motor (10-second hold) - 0(No drift) 6a. Left Leg: Motor (5-second hold - always test supine) - 0(No drift) 6b. Right Leg: Motor (5-second hold - always test supine) - 0(No drift) 7. Limb Ataxia (finger/nose \\T\\ heel/constantino - test with eyes open) - 0(Absent) 8. Sensory Loss (pinprick arms/legs/face) - 0(Normal) 9. Best Language: Aphasia (description/naming/reading) - 0(No aphasia) 10. Dysarthria (speech clarity - read or repeat words) - 0(Normal) 11. Extinction and Inattention (visual/tactile/auditory/spatial/personal) - 0(No abnormality) Initials: NIH Stroke Scale - NIH Stroke Score Date: 07/11/2021 Time: 21:49 Total Score = 0 1a. Level of Consciousness (LOC) - 0(Alert) 1b. Level of Consciousness (LOC) (Month \\T\\ Age) - 0(Both) 1c. LOC Commands (Open \\T\\ Closes Eyes/Drafter Topographical) - 0(Both) 2. Best Gaze (Lateral Gaze Paresis) - 0(Normal) 3. Visual Field Loss - 0(No visual loss) 4. Facial Palsy - 0(Normal) 5a. Left Arm: Motor (10-second hold) - 0(No drift) 5b. Right Arm: Motor (10-second hold) - 0(No drift) 6a. Left Leg: Motor (5-second hold - always test supine) - 0(No drift) 6b. Right Leg: Motor (5-second hold - always test supine) - 0(No drift) 7. Limb Ataxia (finger/nose \\T\\ heel/constantino - test with eyes open) - 0(Absent) 8. Sensory Loss (pinprick arms/legs/face) - 0(Normal) 9. Best Language: Aphasia (description/naming/reading) - 0(No aphasia) 10. Dysarthria (speech clarity - read or repeat words) - 0(Normal) 11. Extinction and Inattention (visual/tactile/auditory/spatial/personal) - 0(No abnormality) Initials: NIH Stroke Scale - NIH Stroke Score Date: 07/11/2021 Time: 22:04 Total Score = 0 1a. Level of Consciousness (LOC) - 0(Alert) 1b. Level of Consciousness (LOC) (Month \\T\\ Age) - 0(Both) 1c. LOC Commands (Open \\T\\ Closes Eyes/Drafter Topographical) - 0(Both) 2. Best Gaze (Lateral Gaze Paresis) - 0(Normal) 3. Visual Field Loss - 0(No visual loss) 4. Facial Palsy - 0(Normal) 5a. Left Arm: Motor (10-second hold) - 0(No drift) 5b. Right Arm: Motor (10-second hold) - 0(No drift) 6a. Left Leg: Motor (5-second hold - always test supine) - 0(No drift) 6b. Right Leg: Motor (5-second hold - always test supine) - 0(No drift) 7. Limb Ataxia (finger/nose \\T\\ heel/constantino - test with eyes open) - 0(Absent) 8. Sensory Loss (pinprick arms/legs/face) - 0(Normal) 9. Best Language: Aphasia (description/naming/reading) - 0(No aphasia) 10. Dysarthria (speech clarity - read or repeat words) - 0(Normal) 11. Extinction and Inattention (visual/tactile/auditory/spatial/personal) - 0(No abnormality) Initials: sarah Signatures: Dispatcher [employer] EDMS Tom Madera MD MD cha Ballard, Brenda, RN RN Pily Jeronimo Madeline RN YEISON [email or web address] Corrections: (The following items were deleted from the chart) 22:26 22:25 Transferred by ground EMS to [facility], [facility], [facility]
[2021-07-11] MEDS ORDERED: FOLIC ACID 5 MG/ML VIAL ONE (20:16)
[2021-07-11] MEDS ORDERED: NA CHLORIDE 0.9% 1,000 ML ONE (20:18)
[2021-07-11] MEDS ORDERED: ALTEPLASE 100 ML IV ONE (20:18)
--- NOTE | 2021-07-11 20:21 | RAD REPORT ---
EXAM DESCRIPTION: RAD - Chest Single View - 07/11/2021 8:07 pm CLINICAL HISTORY: COUGH COMPARISON: No comparisonsChest Pa And Lat (2 Views) dated 03/25/2021; ABDOMEN 1 VIEW KUB dated 07/13 FINDINGS: Lines: None. Lungs: No evidence of edema or pneumonia. Pleural: No significant pleural effusions or pneumothorax. Cardiac: The heart size is within normal limits. Bones: No acute fractures. Other: Sternotomy. IMPRESSION: No acute cardiopulmonary disease.
[2021-07-11 20:23] LABS: Absolute Lymphocytes (CBC) 1.9 K/uL (0.7-4.9); Hematocrit 34.3 % (39.6-49.0); Lymphocytes % 27.4 % (15.3-44.8)
[2021-07-11 20:24] LABS: Protime INR 1.08
[2021-07-11 20:38] LABS: ALT/SGPT 24 U/L (12-78); AST/SGOT 14 U/L (15-37); Albumin 3.2 g/dL (3.4-5.0); Alkaline Phosphatase 100 U/L (45-117); BUN Blood Urea Nitrogen 23 mg/dL (7-18); Bicarbonate 25 mmol/L (21-32); Bilirubin Direct 0.1 mg/dL (0-0.2); Bilirubin Total 0.3 mg/dL (0.2-1.0); Glucose Level 99 mg/dL (74-106); Magnesium 2.1 mg/dL (1.8-2.4); NT PRO-BNP 204 pg/mL (<450); Sodium Level 142 mmol/L (136-145)
[2021-07-11 20:46] LABS: C-Reactive Protein < 2.90 mg/L (<3.00)
--- NOTE | 2021-07-11 21:36 | RAD REPORT ---
EXAM DESCRIPTION: CT - Head angio - 07/11/2021 9:24 pm CLINICAL HISTORY: VISUAL DISTURBANCES COMPARISON: <Comparisons> TECHNIQUE: CT angiography of the head was performed with MIPs. All CT scans are performed using dose optimization technique as appropriate and may include automated exposure control or mA/KV adjustment according to patient size. FINDINGS: Anterior circulation: No aneurysm or large vessel occlusion. No hemodynamically significant stenosis. No arteriovenous malf ormation identified. Posterior circulation: Short-segment occlusion of the right vertebral artery as it crosses the dura. It reconstitutes presum ably due to retrograde flow at the distal aspect. No hemodynamically significant stenosis. No arterio venous malformation identified. IMPRESSION: The right vertebral artery which is non dominant is occluded. The anterior and posterior circulations are otherwise intact. No aneurysm.
--- NOTE | 2021-07-11 21:41 | RAD REPORT ---
EXAM DESCRIPTION: CT - Neck Angio - 07/11/2021 9:24 pm CLINICAL HISTORY: vision loss COMPARISON: Ct Stroke Brain Wo Cont dated 07/11/2021No comparisons TECHNIQUE: CT angiography of the neck vessels was performed with MIPs. All CT scans are performed using dose optimization technique as appropriate and may include automated exposure control or mA/KV adjustment according to patient size. FINDINGS: A left aortic arch is identified with normal three vessel configuration of the great vesse ls. Moderate focal stenosis of the left ICA just beyond the bulb. The left common carotid and external ca rotid arteries are patent. 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 This is secondary to bulky calcified linnette que. The right ECA and ICA are patent, however. Left vertebral artery is dominant and patent. The right vertebral artery is occluded along much of it s course proximally. Weak distal reconstitution is noted. Small nonspecific thyroid nodules. Sternotomy. IMPRESSION: 1. 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 2. Moderate stenosis of the left ICA. 3. 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 Widely patent left vertebral artery.
[2021-07-11 22:37] VITALS: TEMP 97.7
[2021-07-11 22:55] VITALS: BP 160/89; O2SAT 100
== END 2021-07-11 22:26 | disposition short-term general hospital (02) ==
LOC: ER 19:38
DX: I63.9 Cerebral infarction, unspecified (principal); H34.9 Unspecified retinal vascular occlusion; I10 Essential (primary) hypertension; R29.702 NIHSS score 2; Z95.1 Presence of aortocoronary bypass graft; Z20.822 Contact with and (suspected) exposure to COVID-19
CPT/HCPCS: 96365; 92977; 93005; 85025; 80048; 36415; 83735; 85610; 82947; 80076; 85652; 84484; 83880; 86140; 70496; 70498; 70450; 71045; 99285; U0003; Q9967; J2997; J7030

== ENCOUNTER 2022-06-05 12:07 | Emergency (ER) | payer OTHER ==
--- OUTSIDE RECORDS SUMMARY | 2022-06-05 12:14 | XMS REPORT | Continuity of Care Document ---
:1945 Author Organization [facility] t Address [address] [place] [address] Dr. Hackett. [address] [place] [address] Care Team Providers Name Role Phone MONTSE CONROY Attending Clinician Unavailable VALERIE VASQUEZ I. Attending Clinician Unavailable Valerie Vasquez MD, I. Attending Clinician [phone] Samantha Heard RN Attending Clinician NIMISHA APONTE Attending Clinician Unavailable TANIA NEAL Attending Clinician Unavailable A_Bymila Attending Clinician Unavailable Alisia Attending Clinician Unavailable MONTSE CONROY Admitting Clinician Unavailable VALERIE VASQUEZ I. Admitting Clinician Unavailable TANIA NEAL Admitting Clinician Unavailable A_José Admitting Clinician Unavailable Alisia Admitting Clinician Unavailable Payers Payer Name Policy Type Policy Number Effective Date Expiration Date Gaviota mancia [facility] [id number] 2020 00:00:00 [facility]NA [id number] 2021 SUPPLEMENTAL 00:00:00 [facility] [id number] 2020 [employer] (MEDICARE 00:00:00 REPLACEMENT/ADVANTAG E - HMO) AETNA (MEDICARE [id number] SUPPLEMENT) Problems Condition Condition Condition Status Onset Resolution Last Treating Co mments Source Name Details Category Date Date Treatment Clinician Date BPH BPH Disease Active [facility]benign (benign [facility] prostatic prostatic 00:00: Medi shira hyperplasi hyperplasi 00 Ce nter a) a) Blurry Blurry Disease Active [facility] vision vision 2-13 [facility] 00:00: Medical 00 Center CVA CVA Disease Active [facility] (cerebral (cerebral 2-12 [facility] vascular vascular 00:00: Medica l accident) accident) 00 Cent er Coronary Coronary Disease Active 2020-05 [facility] artery artery 1- [facility] disease disease 00:00: Medical 00 Center CAD CAD Disease Active 2020-[address] [facility] (coronary (coronary 0-29 [facility] artery artery 00:00: Medical disease) disease) 00 Center Benign Benign Problem Active [place] [facility] da hypertensi Hypertensi 00:00: Me dical on on 00 Group [id number] BPH loc w Problem Active Com [facility] obs/LUT[facility] - [facility] [id number] Urinary Problem Active Commo n retention [facility] Acute Acute Disease Active [facility] respirator respirator Megan kes y y Medical insufficie insufficie Ce nter ncy, ncy, postoperat postoperat tanvi tanvi S/P CABG x S/P CABG x Disease Active [facility] 3 3 [facility] Acute Acute Disease Active [facility] blood loss blood loss Megan kes as cause as cause Medica l of of Center postoperat postoperat tanvi anemia tanvi anemia HLD HLD Disease Resolve 2021-07-12 2021-07-[address] (hyperlipi (hyperlipi d 2-13 00:00:00 07:13:33 [facility] demia) demia) 00:00: Medical 00 Center Allergies, Adverse Reactions, Alerts Allergy Allergy Status Severity Reaction(s) Onset Inactive Treating Comm ents Source Name Type Date Date Clinician NO KNOWN Allergy Active [facility] SONIDO [facility] Social History Social Habit Start Date Stop Date Quantity Comments Source History of Tobacco [facility] - Use [facility] History SDOH [facility] Alcohol Binge Medical Markus ter History SDOH [facility] Alcohol Comment Medical C enter History SDOH [facility] Alcohol Std Drinks Medica l Center Alcohol intake 2021-04-02 2021-04-[address] Jarred es 00:00:00 00:00:00 non-drinker Medical Cente r (finding) Tobacco use and 2021-03-27 2021-03-[address] Megan kes exposure 00:00:00 00:00:00 Medical Center History SDOH 2021-03-27 2021-03-[address] [facility] Alcohol Frequency 00:00:00 00:00:00 Medical Center Sex Assigned At [address] [address] Megan kes 00:00:00 00:00:00 Medical Center Smoking Status Start Date Stop Date Source Never sm[facility] Medications Ordered Filled Start Stop Current Ordering Indication Dosage Frequency Signature Comments Components Source Medication Medication Date Date Medication? Clinician (SIG) Name Name nitrofurant Yes 100mg Q.5D Take [address] oin 2-15 mg by [facility] (MACRODANTI 15:00: mouth 2 Med ical N) 100 MG 05 (two) Center capsule times daily Take for 10 days. Patient has 8 more days to go starting today 07/12/2021 . atorvastati Yes 80mg QD Take [address] n (LIPITOR) 2-15 by mouth Luke s 80 MG 15:00: nightly. Medical tablet 05 Center aspirin 81 2022- No 81mg QD Take [address] MG chewable 2-15 02-15 tablet (81 L ukes tablet 00:00: 23:59 mg total) Medic al 00 :00 by mouth Center daily. aspirin 81 2020-05- No 81mg QD Take [address] MG EC 1-06 02-04 tablet (81 [facility] tablet 00:00: 23:59 mg total) Medic al 00 :00 by mouth Center daily for 90 days. tamsulosin 2020-05 Yes TAKE TWO [facility] (FLOMAX) 0-03 (2) [facility] 0.4 mg Cap 00:00: CAPSULE(S) M edical 24 hr 00 BY MOUTH Center capsule ONCE A DAY. metoprolol 2020-[address] succinate 0-03 [facility] (TOPROL-XL) 00:00: Medica l 50 MG 24 hr 00 Center tablet amLODIPine amLODIPine No 1{table QD amLODIPine Besylate 10 Besylate 10 t} Besylate MG MG 10 MG valsartan valsartan No valsartan [place] 80 mg [...] DAY. ONCE A DAY. ONCE A DAY. Metoprolol Metoprolol No 1{table QD Metoprolol Succinate Succinate t} Succinate ER 50 MG ER 50 MG ER 50 MG Tamsulosin Tamsulosin No 1{capsu QD Tamsulosin HCl 0.4 MG HCl 0.4 MG le} HCl 0.4 MG Hydrochloro Hydrochloro No 1{table QD Hydrochlor thiazide 25 thiazide 25 t} othiazide MG MG 25 MG Valsartan Valsartan No 1{table QD Valsartan 80 MG 80 MG t} 80 MG Atorvastati Atorvastati No 1{table QD Atorvastat n Calcium n Calcium t} in Calcium 20 MG 20 MG 20 MG Immunizations Ordered Immunization Filled Immunization Date Status Commen ts Source Name Name Influenza TIV (IM) 2021-03-[address] [facility] 00:00:00 Medical Center Covid-19 Vaccine 2020-08-[address] [facility] MRNA (PF) 18yr+ 00:00:00 Medical C enter (Moderna)([id number]) COVID-19, mRNA, COVID-19, mRNA, 2020-08-01 Completed Almazan lara LNP-S, PF, 100 LNP-S, PF, 100 00:00:00 Medica l Group mcg/0.5 mL dose mcg/0.5 mL dose Covid-19 Vaccine 2020-07-[address] [facility] MRNA (PF) 18yr+ 00:00:00 Medical C enter (Moderna)([id number]) COVID-19, mRNA, COVID-19, mRNA, 2020-07-04 Completed Almazan lara LNP-S, PF, 100 LNP-S, PF, 100 00:00:00 Medica l Group mcg/0.5 mL dose mcg/0.5 mL dose Vital Signs Vital Name Observation Time Observation Value Comments Source HEIGHT 2021-07-12 00:00:00 185.4 cm WEIGHT 2021-07-12 00:00:00 87.998 kg HEIGHT 2021-07-12 00:00:00 185.4 cm WEIGHT 2021-07-12 00:00:00 87.998 kg HEIGHT 2021-07-12 00:00:00 185.4 cm WEIGHT 2021-07-12 00:00:00 87.998 kg height 2021-05-07 17:15:00 73 [in_i] [facility] weight 2021-05-07 17:15:00 180 [lb_av] [facility] temperature 2021-05-07 17:15:00 97.6 [degF] [facility] bmi 2021-05-07 17:15:00 23.75 kg/m2 [facility] oximetry 2021-05-07 17:15:00 96 % [facility] blood pressure 2021-05-07 17:15:00 146 mm[Hg] [facility] - systolic [facility] blood pressure 2021-05-07 17:15:00 80 mm[Hg] [facility] - diastolic [facility] HEIGHT 2021-04-14 09:16:00 185.4 cm WEIGHT 2021-04-14 [...] kg BP Diastolic 2021-02-04 00:00:00 76 mm[Hg] [facility] Height 2021-02-04 00:00:00 70 [in_i] [facility] BMI (Body Mass 2021-02-04 00:00:00 27.5 kg/m2 [facility] Medical Index) Group BP Systolic 2021-02-04 00:00:00 131 mm[Hg] [facility] Body Weight 2021-02-04 00:00:00 3070.4 [oz_av] [facility] Heart rate 2021-07-13 12:00:00 75 /min [facility] Respiratory rate 2021-07-13 12:00:00 18 /min [facility] Oxygen saturation in 2021-07-13 12:00:00 99 /min [facility] Arterial blood by Medical Ce nter Pulse oximetry Systolic blood 2021-07-13 11:00:00 127 mm[Hg] [facility] Diastolic blood 2021-07-13 11:00:00 94 mm[Hg] [facility] Body temperature 2021-07-13 07:00:00 36.44 Sofia [facility] Body height 2021-07-12 08:08:00 185.4 cm [facility] Body weight 2021-07-12 08:08:00 88 kg [facility] BMI 2021-07-12 08:08:00 25.60 kg/m2 [facility] Procedures Procedure Date / Time Performed Performing Clinician Sourc e MISCELLANEOUS LAB ORDER 2021-07-13 09:54:00 Nahun Canela [facility] VITAMIN B12 AND FOLATE 2021-07-13 09:54:00 Sandro Muller [facility] 2D ECHO W/ DOPPLER 2021-07-13 08:41:00 [facility] (CW/PW/COLOR) [facility] CBC W/PLT COUNT & AUTO 2021-07-13 03:27:00 [facility] BASIC METABOLIC PANEL 2021-07-13 03:27:00 [facility] MAGNESIUM 2021-07-13 03:27:00 [facility] PHOSPHORUS 2021-07-13 03:27:00 [facility] CBC W/PLT COUNT & AUTO 2021-07-13 03:27:00 [facility] C-REACTIVE PROTEIN 2021-07-12 17:50:00 Bekah Lowery [facility] POTASSIUM 2021-07-12 14:57:00 Bubba Vasquezphoenixcolby [facility] MR BRAIN WITHOUT IV 2021-07-12 14:33:00 [facility] CONTRAST [facility] MAGNESIUM 2021-07-12 10:32:00 Bubba Vasquezphoenixcolby [facility] POTASSIUM 2021-07-12 10:32:00 [facility] HEMOGLOBIN A1C 2021-07-12 05:33:00 [facility] TSH/FREE T4 IF INDICATED 2021-07-12 05:33:00 [facility] CBC W/PLT COUNT & AUTO 2021-07-12 01:30[facility]OL[facility] 2021-07-12 01:30:00 [facility] PROTHROMBIN TIME/INR 2021-07-12 01:30:00 [facility] APTT 2021-07-12 01:30:00 [facility] PHOSPHORUS 2021-07-12 01:30:00 [facility] 2021-07-12 01:30:00 [facility] CALCIUM, IONIZED 2021-07-12 01:30:00 [facility] LIP[facility]EL 2021-07-12 01:30:00 [facility] CBC W/PLT COUNT & AUTO 2021-07-12 01:30:00 [facility] EKG-SCANNED 2021-07-11 00:00:00 ProviderMikayla [facility] Plan of Care Planned Activity Planned Date Details Comments Source Future Scheduled 2022-03-[address] [facility] Test 00:00:00 [facility]ing [facility] Medical Cente r Screening (12+) [code = Tobacco Cessation Counseling and Screening (12+)] Future Scheduled 2022-01-28 INFLUENZA VACCINE (#1) [facility] 00:00:00 [code = INFLUENZA Medical Ce nter VACCINE (#1)] Future Scheduled 2021-05-[address] [facility] Test 00:00:00 (12+) [code = Medical Center DEPRESSION SCREENING (12+)] Future Scheduled 2021-05-30 FALLS RISK SCREENING [facility] Test 00:00:00 [code = FALLS RISK Medical C enter SCREENING] Future Scheduled 2021-01-01 COVID-19 VACCINE (3 - [facility] Test 00:00:00 Booster for [facility] series) [code = COVID-19 VACCINE (3 - Booster for Moderna series)] Future Scheduled 2011-08-[address] [facility] [facility] Test 00:00:00 WELLNESS (YEAR 2 or Medical Center FIRST YEAR if no IPPE) [code = MEDICARE ANNUAL WELLNESS (YEAR 2 or FIRST YEAR if no IPPE)] Future Scheduled 1995-09-23 SHINGLES VACCINES ([address] [facility] Test 00:00:00 of 2) [code = SHINGLES Medic al Center VACCINES (1 of 2)] Future Scheduled 1964 DTAP/TDAP/TD VACCINES [facility] Test 00:00:00 (1 - Tdap) [code = Medical C enter DTAP/TDAP/TD VACCINES (1 - Tdap)] Future Scheduled 1963-09-23 HEPATITIS C SCREENING [facility] Test 00:00:00 [code = HEPATITIS C Medical Center SCREENING] Future Scheduled 1951-09-23 PNEUMOCOCCAL 65+ YRS [facility] Test 00:00:00 (1 - PCV) [code = Medical Ce nter PNEUMOCOCCAL 65+ YRS (1 - PCV)] Encounters Start End Encounter Admission Attending Care Care Encounter Source Date/Time Date/Time Type Type Clinicians Facility Department ID 2021-10-22 Outpatient STLMLC ST[facility] Common 07:42:01 [facility] 2021-07-27 Outpatient STLMLC STLC [id number] Common 09:23:02 [facility] 2021-07-06 Outpatient STLMLC STLC [id number] Common 12:03:02 [facility] 2021-06-24 Outpatient STLC STLC [id number] Common 14:34:42 [facility] 2021-06-24 Outpatient STLMLC STLMLC [id number] Common 14:30:15 [facility] 2021-06-24 Outpatient STLC STLMLC [id number] Common 14:23:10 [id number] [facility] 2021-06-24 Outpatient STLC STLC [id number] Common 14:12:04 [facility] 2021-03-27 Inpatient SARAH PEREZ Surgery [id number] [facility] 13:15:59 MONTSE 2021-10-29 2021-10-29 ambulatory STLMLC STLMLC [id number] Common 00:00:00 00:00:00 [facility] 2021-10-22 2021-10-22 ambulatory STLMLC STLMLC [id number] Common 00:00:00 00:00:00 [facility] 2021-08-03 2021-08-03 ambulatory STLMLC STLMLC [id number] Common 00:00:00 00:00:00 [facility] 2021-07-31 2021-07-31 ambulatory STLMLC STLMLC [id number] Common 00:00:00 00:00:00 [facility] 2021-07-11 2021-07-13 [facility] [id number] GEMA Mccauley 23:27:00 15:00:00 Encounter [facility] 2021-07-11 2021-07-13 Inpatient ER [facility] Neuro ICU [id number] [facility] 23:27:00 15:00:00 [facility] 2021-07-12 2021-07-12 Travel [facility] [id number] GEMA Mccauley 00:00:00 00:00:00 [facility] 2021-07-01 2021-07-[address] [place] [facility] [id number] GEMA Mccauley 00:00:00 00:00:00 [facility] 2021-06-29 2021-06-29 ambulatory STLMLC STLMLC [id number] Common 00:00:00 00:00:00 [facility] 2021-06-26 2021-06-26 ambulatory STLMLC STLMLC [id number] Common 00:00:00 00:00:00 [facility] 2021-06-26 2021-06-26 ambulatory STLMLC STLMLC [id number] Common 00:00:00 00:00:00 [facility] 2021-06-18 2021-06-18 ambulatory STLMLC STLMLC [id number] Common 00:00:00 00:00:00 [facility] 2021-06-05 2021-06-05 ambulatory STLMLC STLMLC [id number] Common 00:00:00 00:00:00 [facility] 2021-05-28 2021-05-28 ambulatory STLMLC STLMLC [id number] Common 00:00:00 00:00:00 [facility] 2021-05-18 2021-05-18 ambulatory STLMLC STLMLC [id number] Common 00:00:00 00:00:00 [facility] 2021-05-07 2021-05-07 OFFICE STLMLC STLMLC [id number] Co mmon 00:00:00 00:00:00 VISIT [facility] LEVEL 2 [facility] 2021-04-14 2021-04-14 Outpatient SARAH PEREZ [facility] [id number] [facility] 09:09:29 09:09:29 MONTSE 2021-03-27 2021-04-04 Inpatient MANA APONTE [facility] Cardiology [id number] [facility] 16:02:00 10:43:00 NIMISHA 2021-03-27 2021-03-27 Outpatient [facility] [id number] 16:02:00 23:59:00 [facility] 2021-03-27 2021-03-27 Outpatient [facility] [id number] 00:00:00 16:01:00 [facility] 2021-02-04 2021-02-04 Outpatient A_Byrd [facility] [id number] [place] 09:20:00 09:20:00 [id number] [facility] 2021-02-04 2021-02-04 Outpatient A_Byrd [facility] [id number] [place] 09:05:00 09:05:00 0112 [facility] 2021-02-04 2021-02-04 Juan Pablo Neumann [facility] [place] - [id number] M [place] 00:00:00 00:00:00 MD José: [address] Group [facility] [address], [place] [address] , Ph. 2020-06-21 2020-06-21 Outpatient A_Byrd [facility] [id number] [place] 12:03:00 12:03:00 [facility]208 [facility] 2020-06-21 2020-06-21 Outpatient A_Byrd [facility] G [id number] [place] 12:03:00 12:03:00 [facility]123 [facility] 2020-06-12 2020-06-12 Outpatient Obisesan_ad MEHOP MEHOP [id number] [place] 07:14:00 07:14:00 ekunbi [address] da [facility] Program Results Test Description Test Time Test Comments Results Result Comments Source Erythrocyte Sediment Rate (ESR) 2021-07-14 09:55:47 Test Item Value Reference Range Interpretation Comme nts Scan Result (test code = 3568278) See scanned report HELENA (test code = HELENA) See scanned report [facility] [id number] 09:55:47 Test Item Value Reference Range Interpretation Comments SCAN RESULT (test code = See scanned report [id number]) See scanned [id number] Echo W/Doppler(CW/PW/Color)2021-07-13 15:16:07Ejection FractionSLE ECHO HEARTLAB [facility]CKESS[facility] and [id number] 11:49:30 Test Item Value Reference Range Interpretation Comments Vitamin B12 (test 396 pg/mL 213-816 code = 2132-9) Folate (test code = 8.90 ng/mL See_Comment [Automa zainab 2284-8) message] The system which generated this result transmit zainab reference range : >=7.00. The reference range was not used to interpret this result as normal/abnormal . HELENA (test code = HELENA) Metal Plater ID - PIAYA L Lab Interpretation Normal (test code = 46001-5) [facility] AND [id number] 11:49:30 Test Item Value Reference Range Interpretation Comments VITAMIN B12 (BEAKER) 396 pg/mL 213-816 (test code = 774) FOLATE (BEAKER) 8.90 ng/mL See_Comment [Automated message] (test code = 362) The system which generated this result transmitted ref erence range: >=7.00. The reference range was not used to interpr et this result as normal/abnormal . Metal Plater ID - PIAYA [id number] 04:17:46 Test Item Value Reference Range Interpretation Comments Magnesium (test code = 2.0 mg/dL 1.6-2.6 56481-4) HELENA (test code = HELENA) Metal Plater ID - DB Lab Interpretation (test Normal code = 61824-3) [facility]2022-02-14 04:17:46 Test Item Value Reference Range Interpretation Comments Phosphorus (test code = 3.5 mg/dL 2.3-4.7 2777-1) HELENA (test code = HELENA) Metal Plater ID - DB Lab Interpretation (test Normal code = 97095-8) [facility]2022-[facility]-14 04:17:46 Test Item Value Reference Range Interpretation Comments MAGNESIUM (BEAKER) (test code = 2.0 mg/dL 1.6-2.6 627) Metal Plater ID - [id number] 04:17:46 Test Item Value Reference Range Interpretation Comments PHOSPHORUS (BEAKER) (test code = 3.5 mg/dL 2.3-4.7 604) Metal Plater ID - DBBasic Metabolic [id number] 04:17:45 Test Item Value Reference Range Interpretation Comments Sodium (test code = 136 meq/L 756-770 2578-2) Potassium (test code = 4.2 meq/L 3.5-5.1 2823-3) Chloride (test code = 110 meq/L 98-107 H 2074-0) CO2 (test code = 21 meq/L 22-29 L 8-9) BUN (test code = 15 mg/dL 7-21 3094-0) Creatinine (test code 0.83 mg/dL 0.57-1.25 = 2160-0) Glucose (test code = 98 mg/dL 70-105 2345-7) Calcium (test code = 8.9 mg/dL 8.4-10.2 49231-9) EGFR (test code = 90 mL/min/1.73 [place] [address]-1) NOT ACCURATE CREATININE CLEARANCE IN PREDICTING GLOMERULAR FILTRATION RATE . ESTIMATED GFR I S NOT APPLICABLE FOR DIALYSIS PATIENTS. HELENA (test code = HELENA) Metal Plater ID - DB Lab Interpretation Abnormal (test code = 49703-6) [facility] [id number] 04:17:45 Test Item Value Reference Range Interpretation Comments SODIUM (BEAKER) 136 meq/L 136-145 (test code = 381) POTASSIUM (BEAKER) 4.2 meq/L 3.5-5.1 (test code = 379) CHLORIDE (BEAKER) 110 meq/L 98-107 H (test code = 382) CO2 (BEAKER) (test 21 meq/L 22-29 L code = 355) BLOOD UREA NITROGEN 15 mg/dL 7-21 (BEAKER) (test code = 354) CREATININE (BEAKER) 0.83 mg/dL 0.57-1.25 (test code = 358) GLUCOSE RANDOM 98 mg/dL 70-105 (BEAKER) (test code = 652) CALCIUM (BEAKER) 8.9 mg/dL 8.4-10.2 (test code = 697) EGFR (BEAKER) (test 90 mL/min/1.73 ESTIMA ZAINAB GFR IS code = 1092) sq m NOT ACCURATE CREATININE CLEARANCE IN PREDICTING GLOMERULAR FILTRATION RATE . ESTIMATED GFR I S NOT APPLICABLE FOR DIALYSIS PATIEN TS. Metal Plater ID - DBCBC with platelet count + automated [id number] 03:34:38 Test Item Value Reference Range Interpretation Comments WBC (test code = 6690-2) 8.3 See_Comment [A utomated message] The system [employer] generated this result transmitted ref erence range: 3.5 - 10 .5 K/L. The refe rence range was not u sed to interpret this result as normal/abnor mal. RBC (test code = 789-8) 4.42 See_Comment L [Au tomated message] The system [employer] generated this result transmitted ref erence range: 4.63 - 6 .08 M/L. The refe rence range was not u sed to interpret this result as normal/abnor mal. MCHC (test code = 786-4) 30.4 See_Comment L [A utomated message] The system [employer] generated this result transmitted ref erence range: 32.3 - 3 6.5 GM/DL. The refe rence range was not u sed to interpret this result as normal/abnor mal. Hematocrit (test code = 33.5 % 40.1-51.0 L 4544-3) MCV (test code = 787-2) 75.8 fL 79.0-92.2 L MCH (test code = 785-6) 23.1 pg 25.7-32.2 L RDW (test code = 788-0) 18.4 % 11.6-14.4 H Platelets (test code = 296 See_Comment [Aut omated message] 777-3) The system [employer] generated this result transmitted ref erence range: 150 - 45 0 K/CU MM. The referen ce range was not u sed to interpret this result as normal/abnor mal. MPV (test code = 9.6 fL 9.4-12.4 77484-3) nRBC (test code = 413) 0 See_Comment [Aut omated message] The system [employer] generated this result transmitted ref erence range: 0 - 0 /1 00 WBC. The refere nce range was not u sed to interpret this result as normal/abnor mal. % Neutros (test code = 70 % 429) % Lymphs (test code = 18 % 430) % Monos (test code = 8 % 431) % Eos (test code = 432) 3 % % Baso (test code = 437) 1 % # Neutros (test code = 5.80 See_Comment H [Aut omated message] 670) The system [employer] generated this result transmitted ref erence range: 1.78 - 5 .38 K/L. The refe rence range was not u sed to interpret this result as normal/abnor mal. # Lymphs (test code = 1.46 See_Comment [Auto mated message] 414) The system [employer] generated this result transmitted ref erence range: 1.32 - 3 .57 K/L. The refe rence range was not u sed to interpret this result as normal/abnor mal. # Monos (test code = 0.70 See_Comment [Autom ated message] 415) The system [employer] generated this result transmitted ref erence range: 0.30 - 0 .82 K/L. The refe rence range was not u sed to interpret this result as normal/abnor mal. # Eos (test code = 416) 0.27 See_Comment [Au tomated message] The system [employer] generated this result transmitted ref erence range: 0.04 - 0 .54 K/L. The refe rence range was not u sed to interpret this result as normal/abnor mal. # Baso (test code = 417) 0.04 See_Comment [A utomated message] The system [employer] generated this result transmitted ref erence range: 0.01 - 0 .08 K/L. The refe rence range was not u sed to interpret this result as normal/abnor mal. Immature 0 % 0-1 Granulocytes-Relative (test code = 2801) Lab Interpretation (test Abnormal code = 11082-6) [facility] W/PLT COUNT & AUTO [id number] 03:34:38 Test Item Value Reference Range Interpretation Comments WHITE BLOOD CELL COUNT (BEAKER) 8.3 K/ L 3.5-10.5 (test code = 775) RED BLOOD CELL COUNT (BEAKER) 4.42 M/ L 4.63-6.08 L (test code = 761) HEMOGLOBIN (BEAKER) (test code = 10.2 GM/DL 13.7-17.5 L 410) HEMATOCRIT (BEAKER) (test code = 33.5 % 40.1-51.0 L 411) MEAN CORPUSCULAR VOLUME (BEAKER) 75.8 fL 79.0-92.2 L (test code = 753) MEAN CORPUSCULAR HEMOGLOBIN 23.1 pg 25.7-32.2 L (BEAKER) (test code = 751) MEAN CORPUSCULAR HEMOGLOBIN CONC 30.4 GM/DL 32.3-36.5 L (BEAKER) (test code = 752) RED CELL DISTRIBUTION WIDTH 18.4 % 11.6-14.4 H (BEAKER) (test code = 412) PLATELET COUNT (BEAKER) (test 296 K/CU MM 150-450 code = 756) MEAN PLATELET VOLUME (BEAKER) 9.6 fL 9.4-12.4 (test code = 754) NUCLEATED RED BLOOD CELLS 0 /100 WBC 0-0 (BEAKER) (test code = 413) NEUTROPHILS RELATIVE PERCENT 70 % (BEAKER) (test code = 429) LYMPHOCYTES RELATIVE PERCENT 18 % (BEAKER) (test code = 430) MONOCYTES RELATIVE PERCENT 8 % (BEAKER) (test code = 431) EOSINOPHILS RELATIVE PERCENT 3 % (BEAKER) (test code = 432) BASOPHILS RELATIVE PERCENT 1 % (BEAKER) (test code = 437) NEUTROPHILS ABSOLUTE COUNT 5.80 K/ L 1.78-5.38 H (BEAKER) (test code = 670) LYMPHOCYTES ABSOLUTE COUNT 1.46 K/ L 1.32-3.57 (BEAKER) (test code = 414) MONOCYTES ABSOLUTE COUNT (BEAKER) 0.70 K/ L 0.30-0.82 (test code = 415) EOSINOPHILS ABSOLUTE COUNT 0.27 K/ L 0.04-0.54 (BEAKER) (test code = 416) BASOPHILS ABSOLUTE COUNT (BEAKER) 0.04 K/ L 0.01-0.08 (test code = 417) IMMATURE GRANULOCYTES-RELATIVE 0 % 0-1 PERCENT (BEAKER) (test code = 2801) C-Reactive [id number] 18:14:26 Test Item Value Reference Range Interpretation Comments CRP (test code = 676) 0.10 mg/dL 0.00-0.50 HELENA (test code = HELENA) Metal Plater ID - PIAYA L Lab Interpretation (test Normal code = 19683-7) [facility] [id number] 18:14:26 Test Item Value Reference Range Interpretation Comments C-REACTIVE PROTEIN (BEAKER) (test 0.10 mg/dL 0.00-0.50 code = 676) Metal Plater ID - IMAN LMR, BRAIN, WITHOUT [id number] 17:05:00Unlisted Reason for Exam - Click Yes and Enter Reason Below->No [facility] 1945 Sex: MFINAL REPORT MRI Brain without contrast Clinical History: Stroke, follow up Technique: MRI of the brain utilizing axial T2, FLAIR, GRE, DWI; sagittal and coronal T1-weighted images. Comparisons: None Findings: There is no evidence of acute infarct or hemorrhage. There is mild periventricular and subcortical white matter T2 hyperintensity, which is nonspecific but compatible with chronic microvascular ischemic change. There is generalized parenchymal volume loss without hydrocephalus, midline shift, or apparent mass effect. There are no extra-axial fluid collections. The craniocervical junction is preserved. There is loss of the proximal right intradural vertebral artery flow void.IMPRESSION: No evidence of acute infarct, hemorrhage, or hydrocephalus. Loss of the proximal right intradural vertebral artery flow void, for which further evaluation with MRA head and neck is recommended. Signed: Michelle Stewart [facility] Verified Date/Time: 07/12/2021 17:05:55 [id number] 15:27:23 Test Item Value Reference Range Interpretation Comments Potassium (test code = 4.2 meq/L 3.5-5.1 2823-3) HELENA (test code = HELENA) Metal Plater ID - IMAN L Lab Interpretation (test Normal code = 84959-4) [facility]OT[facility]UM2022-[facility]-13 15:27:23 Test Item Value Reference Range Interpretation Comments POTASSIUM (BEAKER) (test code = 4.2 meq/L 3.5-5.1 379) Metal Plater ID - NADINEAYA [id number] 11:37:10 Test Item Value Reference Range Interpretation Comments POTASSIUM (BEAKER) (test code = 3.9 meq/L 3.5-5.1 379) Metal Plater ID - [id number] 11:37:09 Test Item Value Reference Range Interpretation Comments MAGNESIUM (BEAKER) (test code = 2.3 mg/dL 1.6-2.6 627) Metal Plater ID - DBHemoglobin [id number] 10:19:32 Test Item Value Reference Range Interpretation Comments Hemoglobin A1C (test 5.4 % See_Comment [Autom ated code = 4549-2) message] The system which generated this result transmitted reference range : <=5.6%. The reference range was not used to interpret this result as normal/abnormal . HELENA (test code = HELENA) "The A1c is measured using a NGSP-certified method. HbA1c value equal to or greater than 6.5% as the diagnosis cutoff for diabetes. An HbA1c value of 5.7-6.4% indicates increased risk for diabetes (prediabetes)."O perator ID - ADM Lab Interpretation Normal (test code = 56761-3) [facility]HEMOGLOBIN [id number] 10:19:32 Test Item Value Reference Range Interpretation Comments HEMOGLOBIN A1C 5.4 % See_Comment [Automated m essage] ELECTROPHORESIS (BEAKER) The system which (test code = 3811) generated this result transmitted ref erence range: <=5.6%. The reference range was not used to int erpret this result as normal/abnormal . "The A1c is measured using a NGSP-certified method. HbA1c value equal to or greater than 6.5% as thediagnosis cutoff for diabetes. An HbA1c value of 5.7- 6.4% indicates increased risk for diabetes (prediabetes)."Metal Plater ID - ADMLipid [id number] 07:49:01 Test Item Value Reference Range Interpretation Comments Triglycerides (test 66 mg/dL Specimen code = 2571-8) slightly hemolyzed Cholesterol (test 87 mg/dL Specimen code = 2093-3) slightly hemolyzed HDL (test code = 31 mg/dL 5-9) LDL Calculated (test 43 mg/dL code = 02418-8) HELENA (test code = Triglyceride HELENA) Reference Range: Low Risk <150 Borderline 150-199 High Risk 200-499 Very High Risk >=500 Cholesterol Reference Range: Low Risk <200 Borderline 200-239 High Risk >240 HDL Cholesterol Reference Range: Low Risk >=60 High Risk <40 LDL Cholesterol Reference Range: Optimal <100 Near Optimal 100-129 Borderline 130-159 High 160-189 Very High >=190 Metal Plater ID - IMAN L [facility] HospitalLIPID [id number] 07:49:01 Test Item Value Reference Range Interpretation Comments TRIGLYCERIDES (BEAKER) 66 mg/dL Speci men slightly (test code = 540) hemolyzed CHOLESTEROL (BEAKER) 87 mg/dL Specime n slightly (test code = 631) hemolyzed HDL CHOLESTEROL (BEAKER) 31 mg/dL (test code = 976) LDL CHOLESTEROL 43 mg/dL CALCULATED (BEAKER) (test code = 633) Triglyceride Reference Range: Low Risk <150 Borderline 150-199 High Risk 200- 499 Very High Risk >=500Cholesterol Reference Range: Low Risk <200 Borderline 200-239 High Risk >240HDL Cholesterol Reference Range: Low Risk >=60 High Risk <40LDL Cholesterol Reference Range: Optimal <100 Near Optimal 100-129 Borderline 130-159 High 160-189 Very High >=190 Metal Plater ID - IMAN LTSH/Free T4 If [id number] 07:13:29 Test Item Value Reference Range Interpretation Comments TSH (test code = 1.411 See_Comment [Automated 23737-8) message] The system which generated this result transmit zainab reference range : 0.350 - 4.940 uIU/mL. The reference range was not used to interpret this result as normal/abnormal . HELENA (test code = HELENA) Metal Plater ID - IMAN L Lab Interpretation Normal (test code = 13587-4) [facility] HospitalTSH/FREE T4 IF [id number] 07:13:29 Test Item Value Reference Range Interpretation Comments THYROID STIMULATING HORMONE 1.411 uIU/mL 0.350-4.940 (BEAKER) (test code = 772) Metal Plater ID - IMAN LComprehensive metabolic [id number] 02:14:24 Test Item Value Reference Range Interpretation Comments Protein, Total (test 5.7 See_Comment L [Autom ated code = 2885-2) message] The system which generated this result transmit zainab reference range : 6.0 - 8.3 gm/dL . The reference range was not u sed to interpret th is result as normal/abnormal . Albumin (test code = 3.3 g/dL 3.5-5.0 L 17959-5) Alkaline Phosphatase 80 U/L 40-150 (test code = 6768-6) Total Bilirubin (test 0.4 mg/dL 0.2-1.2 code = 1974-2) Sodium (test code = 137 meq/L 137-179 3964-2) Potassium (test code 3.8 meq/L 3.5-5.1 = 2823-3) Chloride (test code = 112 meq/L 98-107 H 2074-0) CO2 (test code = 19 meq/L 22-29 L 8-9) BUN (test code = 20 mg/dL 7-21 3094-0) Creatinine (test code 0.87 mg/dL 0.57-1.25 = 2160-0) Glucose (test code = 100 mg/dL 70-105 2345-7) Calcium (test code = 8.3 mg/dL 8.4-10.2 L 78896-8) AST (test code = 14 U/L 5-34 1920-8) ALT (test code = 13 U/L 6-55 1742-6) EGFR (test code = 86 mL/min/1.73 [place] [address]-8) NOT ACCURATE CREATININE CLEARANCE IN PREDICTING GLOMERULAR FILTRATION RATE . ESTIMATED GFR I S NOT APPLICABLE FOR DIALYSIS PATIEN TSCelso HELENA (test code = HELENA) Metal Plater ID - DB Lab Interpretation Abnormal (test code = 48021-4) [facility] HospitalCOMPREHENSIVE METABOLIC [id number] 02:14:24 Test Item Value Reference Range Interpretation Comments TOTAL PROTEIN 5.7 gm/dL 6.0-8.3 L (BEAKER) (test code = 770) ALBUMIN (BEAKER) 3.3 g/dL 3.5-5.0 L (test code = 1145) ALKALINE PHOSPHATASE 80 U/L 40-150 (BEAKER) (test code = 346) BILIRUBIN TOTAL 0.4 mg/dL 0.2-1.2 (BEAKER) (test code = 377) SODIUM (BEAKER) (test 137 meq/L 136-145 code = 381) POTASSIUM (BEAKER) 3.8 meq/L 3.5-5.1 (test code = 379) CHLORIDE (BEAKER) 112 meq/L 98-107 H (test code = 382) CO2 (BEAKER) (test 19 meq/L 22-29 L code = 355) BLOOD UREA NITROGEN 20 mg/dL 7-21 (BEAKER) (test code = 354) CREATININE (BEAKER) 0.87 mg/dL 0.57-1.25 (test code = 358) GLUCOSE RANDOM 100 mg/dL 70-105 (BEAKER) (test code = 652) CALCIUM (BEAKER) 8.3 mg/dL 8.4-10.2 L (test code = 697) AST (SGOT) (BEAKER) 14 U/L 5-34 (test code = 353) ALT (SGPT) (BEAKER) 13 U/L 6-55 (test code = 347) EGFR (BEAKER) (test 86 mL/min/1.73 ESTIMA ZAINAB GFR IS code = 1092) sq m NOT ACCURATE CREATININE CLEARANCE IN PREDICTING GLOMERULAR FILTRATION RATE . ESTIMATED GFR I S NOT APPLICABLE FOR DIALYSIS PATIEN TS. Metal Plater ID - [id number] 02:14:24 Test Item Value Reference Range Interpretation Comments MAGNESIUM (BEAKER) (test code = 1.8 mg/dL 1.6-2.6 627) Metal Plater ID - [id number] 02:14:24 Test Item Value Reference Range Interpretation Comments PHOSPHORUS (BEAKER) (test code = 3.8 mg/dL 2.3-4.7 604) Metal Plater ID - [id number] 02:00:37 Test Item Value Reference Range Interpretation Comments PTT (test code = 40.6 See_Comment H [Automated message] 79190-9) The system [employer] generated this result transmitted ref erence range: 22.5 - 3 6.0 seconds. The reference range was not used to int erpret this result as normal/abnormal . Lab Interpretation (test Abnormal code = 54285-3) [facility] HospitalAPTT2022-[facility] 02:00:37 Test Item Value Reference Range Interpretation Comments PARTIAL THROMBOPLASTIN TIME 40.6 seconds 22.5-36.0 H (BEAKER) (test code = 760) Prothrombin time/[id number] 02:00:00 Test Item Value Reference Interpretation Comments Range Protime (test code = 14.6 See_Comment H [Autom ated 5902-2) message] The system which generated this result transmitted reference range : 11.9 - 14.2 seconds. The reference range was not used to interpret this result as normal/abnormal . INR (test code = 1.16 See_Comment [Automated 1266-6) message] The system which generated this result transmitted reference range : <=5.90. The reference range was not used to interpret this result as normal/abnormal . HELENA (test code = RECOMMENDED HELENA) COUMADIN/WARFARIN INR THERAPY RANGESSTANDARD DOSE: 2.0 - 3.0 Includes: PROPHYLAXIS for venous thrombosis, systemic embolization; TREATMENT for venous thrombosis and/or pulmonary embolus.HIGH RISK: Target INR is 2.5-3.5 for patients with mechanical heart valves. Lab Interpretation Abnormal (test code = 25761-0) [facility] HospitalPROTHROMBIN TIME/[id number] 02:00:00 Test Item Value Reference Range Interpretation Comments PROTIME (BEAKER) 14.6 seconds 11.9-14.2 H (test code = 759) INR (BEAKER) (test 1.16 See_Comment [Automat ed message] code = 370) The system [employer] generated this result transmitted ref erence range: <=5.90. The reference range was not used to int erpret this result as normal/abnormal . RECOMMENDED COUMADIN/WARFARIN INR THERAPY RANGESSTANDARD DOSE: 2.0 - 3.0 Includes: PROPHYLAXIS for venous thrombosis, systemic embolization; TREATMENT for venous thrombosis and/or pulmonary embolus.HIGH RISK: Target INR is 2.5-3.5 for patients with mechanical heart valves.Calcium, [id number] 01:58:21 Test Item Value Reference Range Interpretation Comments Calcium, Ion (test code = 1993-3) 1.13 mmol/L 1.12-1.27 pH, Blood (test code = 81606-7) 7.37 [facility] HospitalCALCIUM, [id number] 01:58:21 Test Item Value Reference Range Interpretation Comments CALCIUM IONIZED (BEAKER) (test 1.13 mmol/L 1.12-1.27 code = 698) PH, BLOOD (BEAKER) (test code = 7.37 1810) CBC W/PLT COUNT & AUTO [id number] 01:52:20 Test Item Value Reference Range Interpretation Comments WHITE BLOOD CELL COUNT (BEAKER) 8.2 K/ L 3.5-10.5 (test code = 775) RED BLOOD CELL COUNT (BEAKER) 4.14 M/ L 4.63-6.08 L (test code = 761) HEMOGLOBIN (BEAKER) (test code = 9.6 GM/DL 13.7-17.5 L 410) HEMATOCRIT (BEAKER) (test code = 31.8 % 40.1-51.0 L 411) MEAN CORPUSCULAR VOLUME (BEAKER) 76.8 fL 79.0-92.2 L (test code = 753) MEAN CORPUSCULAR HEMOGLOBIN 23.2 pg 25.7-32.2 L (BEAKER) (test code = 751) MEAN CORPUSCULAR HEMOGLOBIN CONC 30.2 GM/DL 32.3-36.5 L (BEAKER) (test code = 752) RED CELL DISTRIBUTION WIDTH 18.4 % 11.6-14.4 H (BEAKER) (test code = 412) PLATELET COUNT (BEAKER) (test 289 K/CU MM 150-450 code = 756) MEAN PLATELET VOLUME (BEAKER) 9.9 fL 9.4-12.4 (test code = 754) NUCLEATED RED BLOOD CELLS 0 /100 WBC 0-0 (BEAKER) (test code = 413) NEUTROPHILS RELATIVE PERCENT 65 % (BEAKER) (test code = 429) LYMPHOCYTES RELATIVE PERCENT 20 % (BEAKER) (test code = 430) MONOCYTES RELATIVE PERCENT 10 % (BEAKER) (test code = 431) EOSINOPHILS RELATIVE PERCENT 4 % (BEAKER) (test code = 432) BASOPHILS RELATIVE PERCENT 1 % (BEAKER) (test code = 437) NEUTROPHILS ABSOLUTE COUNT 5.33 K/ L 1.78-5.38 (BEAKER) (test code = 670) LYMPHOCYTES ABSOLUTE COUNT 1.63 K/ L 1.32-3.57 (BEAKER) (test code = 414) MONOCYTES ABSOLUTE COUNT (BEAKER) 0.86 K/ L 0.30-0.82 H (test code = 415) EOSINOPHILS ABSOLUTE COUNT 0.32 K/ L 0.04-0.54 (BEAKER) (test code = 416) BASOPHILS ABSOLUTE COUNT (BEAKER) 0.06 K/ L 0.01-0.08 (test code = 417) IMMATURE GRANULOCYTES-RELATIVE 0 % 0-1 PERCENT (BEAKER) (test code = 2801) BASIC METABOLIC [id number] 07:28:19 Test Item Value Reference Range Interpretation Comments SODIUM (BEAKER) 135 meq/L 136-145 L (test code = 381) POTASSIUM (BEAKER) 3.3 meq/L 3.5-5.1 L (test code = 379) CHLORIDE (BEAKER) 104 meq/L 98-107 (test code = 382) CO2 (BEAKER) (test 22 meq/L 22-29 code = 355) BLOOD UREA NITROGEN 23 mg/dL 7-21 H (BEAKER) (test code = 354) CREATININE (BEAKER) 0.92 mg/dL 0.57-1.25 (test code = 358) GLUCOSE RANDOM 154 mg/dL 70-105 H (BEAKER) (test code = 652) CALCIUM (BEAKER) 7.9 mg/dL 8.4-10.2 L (test code = 697) EGFR (BEAKER) (test 80 mL/min/1.73 ESTIMA ZAINAB GFR IS code = 1092) sq m NOT ACCURATE CREATININE CLEARANCE IN PREDICTING GLOMERULAR FILTRATION RATE . ESTIMATED GFR I S NOT APPLICABLE FOR DIALYSIS PATIEN TS. Metal Plater ID - PIAYA LCBC W/PLT COUNT & AUTO [id number] 07:08:10 Test Item Value Reference Range Interpretation [...] = 2801) RAD, CHEST, 1 VIEW, NON [id number] 06:56:00Reason for exam:->post CT surgeryShould this be performed at the bedside?->Yes [facility] 1945 Sex: MFINAL REPORT RAD, CHEST, 1 VIEW, NON DEPT INDICATION: post CT surgery COMPARISON: Prior day's exam FINDINGS: Portable frontal view of the chest. IMPRESSION: Support Lines: Sternotomy wires Lungs and pleura: Small left effusion and left basilar atelectasis No significant pneumothorax. Heart and mediastinum: Stable contours. Additional findings: None. Signed: Ramon Mcfarland MDReport Verified Date/Time: 04/04/2021 06:56:16 Electronically signed by: RAMON MCFARLAND MD on 106:56 AMSARS-COV2/RT-PCR ([facility])2021-04-04 06:09:44 Test Item Value Reference Range Interpretation Comments SARS-COV2/RT-PCR (test code = Negative Negative [id number]) Negative result for this test determines that [...] under Section 564(g) of the Act.Testing was performed using [employer] SARS-CoV-2 assay.Fact Sheet for Healthcare Providers:https://www.[employer].eWise/la/RT SARS-CoV-2 HCP Fact Sheet 51- 937836.pdfFact Sheet for Healthcare Patients:https://www.[employer].eWise/la/RT SARS-CoV-2 Patient Fact Sheet EN 51-477885O5.pdfBASIC METABOLIC [id number] 06:50:46 Test Item Value Reference Range Interpretation [...] S NOT APPLICABLE FOR DIALYSIS PATIEN TS. Metal Plater ID - WARD WCBC W/PLT COUNT & AUTO [id number] 06:45:05 Test Item Value Reference Range Interpretation [...] PERCENT (BEAKER) (test code = 2801) CALCIUM, [id number] 06:34:06 Test Item Value Reference Range Interpretation Comments CALCIUM IONIZED (BEAKER) (test 1.10 mmol/L 1.12-1.27 L code = 698) PH, BLOOD (BEAKER) (test code = 7.40 1810) RAD, CHEST, 1 VIEW, NON [id number] 05:00:00Reason for exam:->post CT surgeryShould this be performed at the bedside?->Yes [facility] 1945 Sex: MFINAL REPORT CLINICAL INDICATION: Postop Comparison: 04/02/2021 The cardiomediastinal contours are stable. The lung volumes are mainly low. Left greater than right and left pleural opacities are similar to previous. There is no pneumothorax. A left chest tube has been removed. Signed: Ross Galdamez MDReport Verified Date/Time: 04/03/2021 05:00:14 RAD, CHEST, 1 VIEW, NON [id number] 08:29:00Reason for exam:->post CT surgeryShould this be performed at the bedside?->[facility] : 1945 Sex: MFINAL REPORT CLINICAL HISTORY: post CT surgery TECHNIQUE: 1 view of the chest. COMPARISON: 04/01/2021 IMPRESSION: The lines and tubes have been removed except for one left chest tube. There is a small left apical pneumothorax, new or increased from before. Mild bilateral lung opacities are unchanged. The cardiomediastinal silhouette is magnified by technique with sternotomy wires. Signed: Michelle Stewart MDReport Verified Date/Time: 04/02/2021 08:29:40 Reading Location: [facility] Radiology Reading Room [id number] 05:18:38 Test Item Value Reference Range Interpretation Comments MAGNESIUM (BEAKER) (test code = 2.0 mg/dL 1.6-2.6 627) Metal Plater ID - KIKE [id number] 05:18:38 Test Item Value Reference Range Interpretation Comments PHOSPHORUS (BEAKER) (test code = 2.4 mg/dL 2.3-4.7 604) Metal Plater ID - KIKE MBASIC METABOLIC [id number] 05:18:37 Test Item Value Reference Range Interpretation [...] S NOT APPLICABLE FOR DIALYSIS PATIEN TS. Metal Plater ID - KIKE MCALCIUM, [id number] 05:12:48 Test Item Value Reference Range Interpretation Comments CALCIUM IONIZED (BEAKER) (test 1.07 mmol/L 1.12-1.27 L code = 698) PH, BLOOD (BEAKER) (test code = 7.41 1810) CBC W/PLT COUNT & AUTO [id number] 04:49:12 Test Item Value Reference Range Interpretation [...] (BEAKER) (test code = 2801) MISCELLANEOUS LAB [id number] 08:24:47 Test Item Value Reference Range Interpretation Comments SCAN RESULT (test code = 9705296) See scanned [id number] 04:41:02 Test Item Value Reference Range Interpretation Comments PHOSPHORUS (BEAKER) (test code = 3.4 mg/dL 2.3-4.7 604) Metal Plater ID - KIKE MBASIC METABOLIC [id number] 04:41:01 Test Item Value Reference Range Interpretation [...] S NOT APPLICABLE FOR DIALYSIS PATIEN TS. Metal Plater ID - KIKE [id number] 04:41:01 Test Item Value Reference Range Interpretation Comments MAGNESIUM (BEAKER) (test code = 2.2 mg/dL 1.6-2.6 627) Metal Plater ID - KIKE MRAD, CHEST, 1 VIEW, NON [id number] 04:22:00while patient is intubated or has chest tubes.Reason for exam:->Status post CV SurgeryShould thisbe performed at the bedside?->Yes [facility] 1945 Sex: MFINAL REPORT RAD, CHEST, 1 VIEW, NON DEPT INDICATION: Status post CV Surgery COMPARISON: Prior day's exam FINDINGS: Portable frontal view of the chest. IMPRESSION: Support Lines: Interval extubation and removal the previously seen enteric tube. Otherwise unchanged support apparatus. Lungs and pleura: Decreased lung volumes with increased bandlike airspace opacities likely reflect worseningatelectasis. Small bilateral pleural effusions. No pneumothorax.Heart and mediastinum: Stable contours. Stable surgical changes.Additional findings: Gaseous distention of the large bowel the abdomen isincompletely characterized on this examination.. Signed: Fahad Guerrero Verified Date/Time: 04/01/2021 04:22:11 CBC W/PLT COUNT & AUTO [id number] 04:15:58 Test Item Value Reference Range Interpretation [...] PERCENT (BEAKER) (test code = 2801) CALCIUM, [id number] 03:51:29 Test Item Value Reference Range Interpretation Comments CALCIUM IONIZED (BEAKER) (test 1.11 mmol/L 1.12-1.27 L code = 698) PH, BLOOD (BEAKER) (test code = 7.46 1810) BASIC METABOLIC [id number] 20:39:03 Test Item Value Reference Range Interpretation [...] S NOT APPLICABLE FOR DIALYSIS PATIEN TS. Metal Plater ID - [id number] 20:35:11 Test Item Value Reference Range Interpretation Comments MAGNESIUM (BEAKER) (test code = 1.9 mg/dL 1.6-2.6 627) Metal Plater ID - ADMINPOCT-GLUCOSE [id number] 20:18:09 Test Item Value Reference Range Interpretation Comments POC-GLUCOSE METER 109 mg/dL 70-110 : Notified RN/MD: (BEAKER) (test code = TESTED AT [facility] 1122 9665) [facility], [address]: Metal Plater/Techni shanta ID = [id number] for Misa George CALCIUM, [id number] 20:13:59 Test Item Value Reference Range Interpretation Comments CALCIUM IONIZED (BEAKER) (test 1.08 mmol/L 1.12-1.27 L code = 698) PH, BLOOD (BEAKER) (test code = 7.42 1810) BLOOD GAS, [id number] 20:13:53 Test Item Value Reference Range Interpretation [...] 1819) 36.0 RAD, CHEST, 1 VIEW, NON [id number] 13:35:00Reason for exam:->Status post CV Surgery post op day 0Should this be performed at the bedside?->Yes [facility] 1945 Sex: MFINAL REPORT CLINICAL HISTORY: Status post CV Surgery post op day 0 TECHNIQUE: 1 view of the chest. COMPARISON: 03/27/2021 IMPRESSION: The patient is status post median sternotomy with an endotracheal tube at the clavicles, a right central line at the cavoatrial junction, a nasogastric tubein the stomach, and left chest tubes. There is no pneumothorax. There is left perihilar and lower lung consolidation. There are no significant effusions. Signed: [facility] Verified Date/Time: 03/31/2021 13:35:56 Reading Location: [facility] Radiology Reading Room BLOOD GAS, [id number] 13:26:42 Test Item Value Reference Range Interpretation [...] FIO2 (BEAKER) (test code = 1819) 40.0 [id number] 12:48:29 Test Item Value Reference Range Interpretation Comments PHOSPHORUS (BEAKER) (test code = 3.5 mg/dL 2.3-4.7 604) Metal Plater ID - KIKE [id number] 12:48:28 Test Item Value Reference Range Interpretation Comments MAGNESIUM (BEAKER) (test code = 2.0 mg/dL 1.6-2.6 627) Metal Plater ID - KIKE MBASIC METABOLIC [id number] 12:03:42 Test Item Value Reference Range Interpretation [...] 697) EGFR (BEAKER) (test 98 mL/min/1.73 ESTIMA ZAIANB GFR IS code = 1092) sq m NOT ACCURATE CREATININE CLEARANCE IN PREDICTING GLOMERULAR FILTRATION RATE . ESTIMATED GFR I S NOT APPLICABLE FOR DIALYSIS PATIEN TS. Metal Plater ID - KIKE [id number] 12:03:41 Test Item Value Reference Range Interpretation Comments PHOSPHORUS (BEAKER) 2.5 mg/dL 2.3-4.7 Specimen slightly (test code = 604) hemolyzed Metal Plater ID - KIKE [id number] 12:03:39 Test Item Value Reference Range Interpretation Comments MAGNESIUM (BEAKER) 1.7 mg/dL 1.6-2.6 Specimen slightly (test code = 627) hemolyzed Metal Plater ID - KIKE MLACTIC ACID, [id number] 11:58:52 Test Item Value Reference Range Interpretation Comments LACTATE BLOOD 0.8 mmol/L 0.5-2.2 Specimen sligh tly ARTERIAL (2) (BEAKER) hemoly zed (test code = 2874) Metal Plater ID - KIKE [id number] 11:47:11 Test Item Value Reference Range Interpretation Comments PARTIAL THROMBOPLASTIN TIME 39.4 seconds 22.5-36.0 H (BEAKER) (test code = 760) [id number] 11:47:10 Test Item Value Reference Range Interpretation Comments FIBRINOGEN LEVEL (BEAKER) (test 200 mg/dl 225-434 L code = 658) PROTHROMBIN TIME/[id number] 11:46:29 Test Item Value Reference Range Interpretation Comments PROTIME (BEAKER) 19.5 seconds 11.9-14.2 H (test code = 759) INR (BEAKER) (test 1.67 See_Comment [Automat ed message] code = 370) The system [employer] generated this result transmitted ref erence range: <=5.90. The reference range was not used to int erpret this result as normal/abnormal . RECOMMENDED COUMADIN/WARFARIN INR THERAPY RANGESSTANDARD DOSE: 2.0 - 3.0 Includes: PROPHYLAXIS for venous thrombosis, systemic embolization; TREATMENT for venous thrombosis and/or pulmonary embolus.HIGH RISK: Target INR is 2.5-3.5 for patients with mechanical heart valves.CBC W/PLT COUNT & AUTO [id number] 11:41:37 Test Item Value Reference Range Interpretation [...] code = 2801) HGB/HCT (H&H) - STAT [id number] 11:40:15 Test Item Value Reference Range Interpretation Comments HEMOGLOBIN (BEAKER) (test code = 9.6 GM/DL 13.0-16.8 L 410) HEMATOCRIT (BEAKER) (test code = 28.0 % 40.0-50.0 L 411) GLUCOSE-STAT [id number] 11:40:14 Test Item Value Reference Range Interpretation Comments GLUCOSE RANDOM (BEAKER) (test code 124 mg/dL 70-110 H = 652) BLOOD GAS, [id number] 11:40:13 Test Item Value Reference Range Interpretation [...] (BEAKER) (test code = 1819) 100.0 POTASSIUM-STAT [id number] 11:39:45 Test Item Value Reference Range Interpretation Comments POTASSIUM (BEAKER) (test code = 4.7 meq/L 3.6-5.5 379) SODIUM NA-STAT [id number] 11:39:44 Test Item Value Reference Range Interpretation Comments SODIUM (BEAKER) (test code = 381) 138 meq/L 136-145 CALCIUM, [id number] 11:39:07 Test Item Value Reference Range Interpretation Comments CALCIUM IONIZED (BEAKER) (test 1.18 mmol/L 1.12-1.27 code = 698) PH, BLOOD (BEAKER) (test code = 7.39 1810) OXYGEN SATURATION, [id number] 11:38:44 Test Item Value Reference Range Interpretation Comments O2 SATURATION (MEASURED) (BEAKER) 77.8 % (test code = 1455) [id number] 11:08:20 Test Item Value Reference Range Interpretation Comments ACTIVATED CLOTTING TIME 125 sec : 74 -137 seconds, (BEAKER) (test code = Baseli ne: TESTED AT 441) [facility] [address] [facility], [facility] 30: Metal Plater/Techni shanta ID = [id number] for BE AVERS, ROMINA [id number] 11:08:19 Test Item Value Reference Range Interpretation Comments ACTIVATED CLOTTING TIME 142 sec : 74 -137 seconds, (BEAKER) (test code = Baseli ne: TESTED AT 441) [address], [facility] 30: Metal Plater/Techni shanta ID = [id number] for BE ROMINA AUSTIN [id number] 11:08:18 Test Item Value Reference Range Interpretation Comments ACTIVATED CLOTTING TIME 499 sec : 74 -137 seconds, (BEAKER) (test code = Baseli ne: TESTED AT 441) [address], [facility] 30: Metal Plater/Techni shanta ID = [id number] for BE ROMINA AUSTIN [id number] 11:08:18 Test Item Value Reference Range Interpretation Comments ACTIVATED CLOTTING TIME 472 sec : 74 -137 seconds, (BEAKER) (test code = Baseli ne: TESTED AT 441) [address], [facility] 30: Metal Plater/Techni shanta ID = [id number] for ROMINA ALLISON [id number] 11:07:42 Test Item Value Reference Range Interpretation Comments ACTIVATED CLOTTING TIME 433 sec : 74 -137 seconds, (BEAKER) (test code = Baseli ne: TESTED AT 441) [address], [facility] 30: Metal Plater/Techni shanta ID = [id number] for ROMINA ALLISON [id number] 11:07:41 Test Item Value Reference Range Interpretation Comments ACTIVATED CLOTTING TIME 411 sec : 74 -137 seconds, (BEAKER) (test code = Baseli ne: TESTED AT 441) [address], [facility] 30: Metal Plater/Techni shanta ID = [id number] for ROMINA ALLISON CALCIUM, [id number] 10:51:07 Test Item Value Reference Range Interpretation Comments CALCIUM IONIZED (BEAKER) (test 1.18 mmol/L 1.12-1.27 code = 698) PH, BLOOD (BEAKER) (test code = 7.34 1810) GLUCOSE-STAT [id number] 10:51:05 Test Item Value Reference Range Interpretation Comments GLUCOSE RANDOM (BEAKER) (test code 145 mg/dL 70-110 H = 652) HGB/HCT (H&H) - STAT [id number] 10:51:05 Test Item Value Reference Range Interpretation Comments HEMOGLOBIN (BEAKER) (test code = 9.1 GM/DL 13.0-16.8 L 410) HEMATOCRIT (BEAKER) (test code = 27.0 % 40.0-50.0 L 411) BLOOD GAS, [id number] 10:51:04 Test Item Value Reference Range Interpretation [...] (test code = 1819) 97.0 SODIUM NA-STAT [id number] 10:50:47 Test Item Value Reference Range Interpretation Comments SODIUM (BEAKER) (test code = 381) 138 meq/L 136-145 POTASSIUM-STAT [id number] 10:50:47 Test Item Value Reference Range Interpretation Comments POTASSIUM (BEAKER) (test code = 5.1 meq/L 3.6-5.5 379) GLUCOSE-STAT [id number] 10:17:52 Test Item Value Reference Range Interpretation Comments GLUCOSE RANDOM (BEAKER) (test code 159 mg/dL 70-110 H = 652) HGB/HCT (H&H) - STAT [id number] 10:17:52 Test Item Value Reference Range Interpretation Comments HEMOGLOBIN (BEAKER) (test code = 8.4 GM/DL 13.0-16.8 L 410) HEMATOCRIT (BEAKER) (test code = 25.0 % 40.0-50.0 L 411) BLOOD GAS, [id number] 10:17:51 Test Item Value Reference Range Interpretation [...] (BEAKER) (test code = 1819) 100.0 CALCIUM, [id number] 10:17:50 Test Item Value Reference Range Interpretation Comments CALCIUM IONIZED (BEAKER) (test 1.31 mmol/L 1.12-1.27 H code = 698) PH, BLOOD (BEAKER) (test code = 7.28 1810) POTASSIUM-STAT [id number] 10:16:53 Test Item Value Reference Range Interpretation Comments POTASSIUM (BEAKER) (test code = 5.5 meq/L 3.6-5.5 379) SODIUM NA-STAT [id number] 10:16:52 Test Item Value Reference Range Interpretation Comments SODIUM (BEAKER) (test code = 381) 135 meq/L 136-145 L POTASSIUM-STAT [id number] 09:39:25 Test Item Value Reference Range Interpretation Comments POTASSIUM (BEAKER) (test code = 6.4 meq/L 3.6-5.5 HH 379) HGB/HCT (H&H) - STAT [id number] 09:37:23 Test Item Value Reference Range Interpretation Comments HEMOGLOBIN (BEAKER) (test code = 9.8 GM/DL 13.0-16.8 L 410) HEMATOCRIT (BEAKER) (test code = 29.0 % 40.0-50.0 L 411) BLOOD GAS, [id number] 09:37:22 Test Item Value Reference Range Interpretation [...] (BEAKER) (test code = 1819) 90.0 GLUCOSE-STAT [id number] 09:37:22 Test Item Value Reference Range Interpretation Comments GLUCOSE RANDOM (BEAKER) (test code 208 mg/dL 70-110 H = 652) SODIUM NA-STAT [id number] 09:36:04 Test Item Value Reference Range Interpretation Comments SODIUM (BEAKER) (test code = 381) 135 meq/L 136-145 L BLOOD GAS, [id number] 09:01:58 Test Item Value Reference Range Interpretation [...] = 1819) 60.0 HGB/HCT (H&H) - STAT [id number] 09:01:57 Test Item Value Reference Range Interpretation Comments HEMOGLOBIN (BEAKER) (test code = 10.1 GM/DL 13.0-16.8 L 410) HEMATOCRIT (BEAKER) (test code = 30.0 % 40.0-50.0 L 411) POTASSIUM-STAT [id number] 09:01:56 Test Item Value Reference Range Interpretation Comments POTASSIUM (BEAKER) (test code = 5.7 meq/L 3.6-5.5 H 379) GLUCOSE-STAT [id number] 09:01:56 Test Item Value Reference Range Interpretation Comments GLUCOSE RANDOM (BEAKER) (test code 203 mg/dL 70-110 H = 652) SODIUM NA-STAT [id number] 09:01:55 Test Item Value Reference Range Interpretation Comments SODIUM (BEAKER) (test code = 381) 133 meq/L 136-145 L BLOOD GAS, [id number] 09:01:54 Test Item Value Reference Range Interpretation [...] (BEAKER) (test code = 1819) 60.0 GLUCOSE-STAT [id number] 07:54:34 Test Item Value Reference Range Interpretation Comments GLUCOSE RANDOM (BEAKER) (test code 113 mg/dL 70-110 H = 652) HGB/HCT (H&H) - STAT [id number] 07:54:34 Test Item Value Reference Range Interpretation Comments HEMOGLOBIN (BEAKER) (test code = 12.3 GM/DL 13.0-16.8 L 410) HEMATOCRIT (BEAKER) (test code = 36.0 % 40.0-50.0 L 411) BLOOD GAS, [id number] 07:54:33 Test Item Value Reference Range Interpretation [...] (test code = 1819) 95.0 STAT-LAB IONIZED [id number] 07:54:15 Test Item Value Reference Range Interpretation Comments FILTER IONIZED CALCIUM (BEAKER) 1.09 nnol/L (test code = 1854) Reference Range: No NormalsPOTASSIUM-STAT [id number] 07:52:36 Test Item Value Reference Range Interpretation Comments POTASSIUM (BEAKER) (test code = 3.6 meq/L 3.6-5.5 379) SODIUM NA-STAT [id number] 07:52:35 Test Item Value Reference Range Interpretation Comments SODIUM (BEAKER) (test code = 381) 135 meq/L 136-145 L BASIC METABOLIC [id number] 07:25:10 Test Item Value Reference Range Interpretation [...] S NOT APPLICABLE FOR DIALYSIS PATIEN TS. Metal Plater ID - KIKE MHEMOGLOBIN [id number] 06:35:55 Test Item Value Reference Range Interpretation Comments HEMOGLOBIN A1C (BEAKER) (test code = 5.1 % 4.3-6.1 368) CBC W/PLT COUNT & AUTO [id number] 05:37:00 Test Item Value Reference Range Interpretation [...] 0-1 PERCENT (BEAKER) (test code = 2801) [id number] 22:53:50 Test Item Value Reference Range Interpretation Comments PARTIAL THROMBOPLASTIN TIME 45.7 seconds 22.5-36.0 H (BEAKER) (test code = 760) LIPID [id number] 21:12:21 Test Item Value Reference Range Interpretation Comments TRIGLYCERIDES (BEAKER) (test code = 163 mg/dL 540) CHOLESTEROL (BEAKER) (test code = 146 mg/dL 631) HDL CHOLESTEROL (BEAKER) (test code 36 mg/dL = 976) LDL CHOLESTEROL CALCULATED (BEAKER) 77 mg/dL (test code = 633) Triglyceride Reference Range: Low Risk <150 Borderline 150-199 High Risk 200- 499 Very High Risk >=500Cholesterol Reference Range: Low Risk <200 Borderline 200-239 High Risk >240HDL Cholesterol Reference Range: Low Risk >=60 High Risk <40LDL Cholesterol Reference Range: Optimal <100 Near Optimal 100-129 Borderline 130-159 High 160-189 Very High >=190 Metal Plater ID - DBCOMPREHENSIVE METABOLIC [id number] 21:12:20 Test Item Value Reference Range Interpretation [...] S NOT APPLICABLE FOR DIALYSIS PATIEN TS. Metal Plater ID - [id number] 21:12:20 Test Item Value Reference Range Interpretation Comments MAGNESIUM (BEAKER) (test code = 2.0 mg/dL 1.6-2.6 627) Metal Plater ID - [id number] 21:03:12 Test Item Value Reference Range Interpretation Comments PARTIAL THROMBOPLASTIN TIME 118.9 seconds 22.5-36.0 H (BEAKER) (test code = 760) PROTHROMBIN [id number] 20:57:08 Test Item Value Reference Range Interpretation Comments PROTIME (BEAKER) 13.1 seconds 11.9-14.2 (test code = 759) INR (BEAKER) (test 1.01 See_Comment [Automat ed message] code = 370) The system [employer] generated this result transmitted ref erence range: <=5.90. The reference range was not used to int erpret this result as normal/abnormal . RECOMMENDED COUMADIN/WARFARIN INR THERAPY RANGESSTANDARD DOSE: 2.0 - 3.0 Includes: PROPHYLAXIS for venous thrombosis, systemic embolization; TREATMENT for venous thrombosis and/or pulmonary embolus.HIGH RISK: Target INR is 2.5-3.5 for patients with mechanical heart valves.CBC W/PLT COUNT & AUTO [id number] 20:46:48 Test Item Value Reference Range Interpretation [...] 0-1 PERCENT (BEAKER) (test code = 2801) [id number] 13:52:27 Test Item Value Reference Range Interpretation Comments PARTIAL THROMBOPLASTIN TIME 55.5 seconds 22.5-36.0 H (BEAKER) (test code = 760) BASIC METABOLIC [id number] 07:09:12 Test Item Value Reference Range Interpretation [...] S NOT APPLICABLE FOR DIALYSIS PATIEN TS. Metal Plater ID - [id number] 06:43:26 Test Item Value Reference Range Interpretation Comments PARTIAL THROMBOPLASTIN TIME 93.8 seconds 22.5-36.0 H (BEAKER) (test code = 760) CBC W/PLT COUNT & AUTO [id number] 06:19:36 Test Item Value Reference Range Interpretation [...] 0-1 PERCENT (BEAKER) (test code = 2801) [id number] 23:18:06 Test Item Value Reference Range Interpretation Comments PARTIAL THROMBOPLASTIN TIME 107.0 seconds 22.5-36.0 H (BEAKER) (test code = 760) [id number] 14:54:28 Test Item Value Reference Range Interpretation Comments PARTIAL THROMBOPLASTIN TIME 54.0 seconds 22.5-36.0 H (BEAKER) (test code = 760) [id number] 07:00:39 Test Item Value Reference Range Interpretation Comments PARTIAL THROMBOPLASTIN TIME 56.0 seconds 22.5-36.0 H (BEAKER) (test code = 760) BASIC METABOLIC [id number] 05:31:45 Test Item Value Reference Range Interpretation [...] 697) EGFR (BEAKER) (test 77 mL/min/1.73 ESTIMA ZAINAB GFR IS code = 1092) sq m NOT ACCURATE CREATININE CLEARANCE IN PREDICTING GLOMERULAR FILTRATION RATE . ESTIMATED GFR I S NOT APPLICABLE FOR DIALYSIS PATIEN TS. Metal Plater ID - [id number] 05:15:01 Test Item Value Reference Range Interpretation Comments PARTIAL THROMBOPLASTIN TIME 140.4 seconds 22.5-36.0 H (BEAKER) (test code = 760) CBC W/PLT COUNT & AUTO [id number] 05:07:44 Test Item Value Reference Range Interpretation [...] 0-1 PERCENT (BEAKER) (test code = 2801) [id number] 21:22:42 Test Item Value Reference Range Interpretation Comments PARTIAL THROMBOPLASTIN TIME 53.5 seconds 22.5-36.0 H (BEAKER) (test code = 760) [id number] 13:30:09 Test Item Value Reference Range Interpretation Comments PARTIAL THROMBOPLASTIN TIME 102.4 seconds 22.5-36.0 H (BEAKER) (test code = 760) SARS-COV2/RT-PCR ([facility])2021-03-28 13:00:55 Test Item Value Reference Range Interpretation Comments SARS-COV2/RT-PCR (test Negative Not Detected, Negative, code = 2636077) See external report for linked test SARS-COV-2 PERFORMING LAB [facility] SONU (test code = 9660060) Negative result for this test determines that [...] justifying the authorization of the emergency use ofin vitro diagnostic tests for detection and/or diagnosis of COVID-19 is terminated under Section 564(b)(2) of the Act or the EUA is revoked under Section 564(g) of the Act.Fact Sheet for Healthcare Prov iders:https://www.[employer]/sites/default/files/product/documents/Fact_Sheet_HC _Qjlhvsntl_Cgur_HUPO-VnY-4.pdfFact Sheet for Healthcare Patients:https://www.[employer]/sites/default/files/product/docume nts/Foch_Ysygh_Okivamko_Ekkd_RPOF-UvP-8.pdfPerforming Laboratory:[facility], [place] [id number] 04:58:01 Test Item Value Reference Range Interpretation Comments PARTIAL THROMBOPLASTIN TIME 39.5 seconds 22.5-36.0 H (BEAKER) (test code = 760) BASIC METABOLIC [id number] 04:51:43 Test Item Value Reference Range Interpretation [...] S NOT APPLICABLE FOR DIALYSIS PATIEN TS. Metal Plater ID - KIKE MCBC W/PLT COUNT & AUTO [id number] 04:30:57 Test Item Value Reference Range Interpretation [...] = 2801) RAD, CHEST, 1 VIEW, NON [id number] 23:15:00Reason for exam:->chest painShould this be performed at the bedside?->Yes [facility] 1945 Sex: MFINAL REPORT History: Chest pain. Comparison: None. Findings: A single view of the chest is submitted. The cardiac silhouette is within normal limits for size. There is atherosclerotic calcification of the elongated aorta. There is no focal consolidation, pneumothorax, large pleural effusion or evidence of overt pulmonary edema. There is no acute bony abnormality. Impression: No acute abnormality. Signed: Ross Galdamez MDReport Verified Date/Time: 03/27/2021 23:15:35 Electronically signedby: ROSS GALDAMEZ M.D. on 03/27/2021 11:15 PM [id number] 20:27:48 Test Item Value Reference Range Interpretation Comments PARTIAL THROMBOPLASTIN TIME 56.3 seconds 22.5-36.0 H (BEAKER) (test code = 760) HEMOGLOBIN [id number] 19:58:37 Test Item Value Reference Range Interpretation Comments HEMOGLOBIN A1C (BEAKER) (test code = 5.4 % 4.3-6.1 368) LIPID [id number] 18:43:27 Test Item Value Reference Range Interpretation Comments TRIGLYCERIDES (BEAKER) (test code = 218 mg/dL 540) CHOLESTEROL (BEAKER) (test code = 180 mg/dL 631) HDL CHOLESTEROL (BEAKER) (test code 36 mg/dL = 976) LDL CHOLESTEROL CALCULATED (BEAKER) 100 mg/dL (test code = 633) Triglyceride Reference Range: Low Risk <150 Borderline 150-199 High Risk 200- 499 Very High Risk >=500Cholesterol Reference Range: Low Risk <200 Borderline 200-239 High Risk >240HDL Cholesterol Reference Range: Low Risk >=60 High Risk <40LDL Cholesterol Reference Range: Optimal <100 Near Optimal 100-129 Borderline 130-159 High 160-189 Very High >=190 Metal Plater ID - BSBASIC METABOLIC [id number] 18:02:45 Test Item Value Reference Range Interpretation [...] S NOT APPLICABLE FOR DIALYSIS PATIEN TS. Metal Plater ID - [id number] (HEMOGRAM ONLY)2021-03-27 17:22:56 Test [...]
[2022-06-05 13:02] LABS: Absolute Lymphocytes (CBC) 1.9 K/uL (0.7-4.9); Hematocrit 41.6 % (39.6-49.0); Lymphocytes % 15.7 % (15.3-44.8); MCV 85.6 fL (80-100); MPV 8.1 fL (7.6-11.3); RBC Red Blood Cell Count 4.86 M/uL (4.33-5.43)
[2022-06-05 13:07] LABS: Protime INR 1.05
[2022-06-05 13:19] LABS: Potassium 3.9 mmol/L (3.5-5.1)
--- NOTE | 2022-06-05 14:09 | RAD REPORT ---
EXAM DESCRIPTION: CT - Head Brain Wo Cont - 06/05/2022 1:56 pm CLINICAL HISTORY: right eye pain COMPARISON: Head angio dated 06/05/2022; Head angio dated 07/11/2021; Ct Stroke Brain Wo Cont dated 06/30 TECHNIQUE: All CT scans are performed using dose optimization technique as appropriate and may inclu de automated exposure control or mA/KV adjustment according to patient size. FINDINGS: No intracranial hemorrhage, hydrocephalus or extra-axial fluid collection.No areas of brai n edema or evidence of midline shift. Mild chronic small vessel ischemic changes. The paranasal sinuses and mastoids are clear. The calvarium is intact. IMPRESSION: No acute intracranial abnormality.
--- NOTE | 2022-06-05 14:15 | RAD REPORT ---
EXAM DESCRIPTION: CT - Head angio - 06/05/2022 1:56 pm CLINICAL HISTORY: right eye pain, hx of retinal artery occlusion COMPARISON: Head angio dated 07/11/2021; Ct Stroke Brain Wo Cont dated 07/11/2021 TECHNIQUE: CT angiography of the head was performed with MIPs. All CT scans are performed using dose optimization technique as appropriate and may include automated exposure control or mA/KV adjustment according to patient size. FINDINGS: Anterior circulation: No aneurysm or large vessel occlusion. No hemodynamically significant stenosis. No arteriovenous malf ormation identified. Posterior circulation: Occluded nondominant right vertebral artery. Left vertebral artery which is the dominant vessel is pa tent. The basilar artery and posterior cerebral arteries are both widely patent. No aneurysm. IMPRESSION: Chronically occluded, nondominant right vertebral artery. The anterior and posterior cir culation are otherwise intact. No significant change compared 07/11/2021.
--- NOTE | 2022-06-05 15:06 | EDPHYS ---
Physician Documentation [facility] Name: Chris Ramirez Age: 76 yrs Sex: Male : 1945 Arrival Date: 06/05/2022 Time: 12:11 Bed 8 Private MD: ANH ART ED Physician Robinson Segal HPI: 06/05 14:57 This 76 yrs old Male presents to ER via Ambulatory with complaints of Eye Pain - right. rn 14:57 The patient is experiencing pain, The patient sustained None. to the right eye, caused rn by an unknown mechanism. Onset: The symptoms/episode began/occurred 3 day(s) ago. Duration: the symptoms are intermittent. Aggravated by nothing. Alleviated by nothing. Associated signs and symptoms: Pertinent negatives: chills, dizziness, fever, runny nose. Severity of symptoms: At their worst the symptoms were moderate in the emergency department the symptoms have improved. The patient has experienced a previous episode. The patient has not recently seen a physician. Pt reports right eye pain, no trauma. Has has right retinal artery occlusion in past with significant loss of vision. No new or worsening vision. No focal neurological complaints. Called Dr. Madera who directed him here. Reports this time is more pain around right eye. Last time reports painless loss of vision.. Historical: - Allergies: 12:22 No Known Allergies; vg1 - Home Meds: 12:22 amlodipine 10 mg oral tab [Active]; atorvastatin 80 mg oral tab [Active]; Metoprolol vg1 Tartrate Oral [Active]; - PMHx: 12:22 CAD; High Cholesterol; Hypertension; vg1 - PSHx: 12:22 Coronary artery bypass graft; Urolift; vg1 - Immunization history:: Client reports receiving the 2nd dose of the Covid vaccine, Flu vaccine is up to date. - Social history:: Smoking status: Patient denies any tobacco usage or history of. - Family history:: not pertinent. - Hospitalizations: : No recent hospitalization is reported. ROS: 14:57 Constitutional: Negative for fever, chills, and weight loss, Eyes: Negative for injury, rn redness, and discharge Neck: Negative for injury, pain, and swelling, Cardiovascular: Negative for chest pain, palpitations, and edema, Respiratory: Negative for shortness of breath, cough, wheezing, and pleuritic chest pain, Abdomen/GI: Negative for abdominal pain, nausea, vomiting, diarrhea, and constipation, MS/Extremity: Negative for injury and deformity, Skin: Negative for injury, rash, and discoloration, Neuro: Negative for weakness, numbness, tingling, and seizure. Exam: 14:57 Constitutional: This is a well developed, well nourished patient who is awake, alert, rn and in no acute distress. Head/Face: Normocephalic, atraumatic. Eyes: Pupils equal round and reactive to light, extra-ocular motions intact. Lids and lashes normal. Conjunctiva and sclera are non-icteric and not injected. Cornea within normal limits. Periorbital areas with no swelling, redness, or edema. Cardiovascular: Regular rate and rhythm. No pulse deficits. Respiratory: No increased work of breathing, no retractions or nasal flaring. Abdomen/GI: Soft, non-tender Skin: Warm, dry with normal turgor. Normal color with no rashes, no lesions, and no evidence of cellulitis. MS/ Extremity: Pulses equal, no cyanosis. Neurovascular intact. Full, normal range of motion. Equal circumference. Neuro: Awake and alert, GCS 15, oriented to person, place, time, and situation. Cranial nerves II-XII grossly intact. Motor strength 5/5 in all extremities. Sensory grossly intact. Cerebellar exam normal. Normal gait. Vital Signs: 12:24 BP 159 / 86; Pulse 78; Resp 18 S; Temp 98.4(TE); Pulse Ox 99% on R/A; Weight 85.73 kg vg1 (R); Height 6 ft. 1 in. (185.42 cm) (R); Pain 0/10; 13:18 BP 148 / 88; Pulse 65; Resp 16 S; Pulse Ox 99% on R/A; Pain 0/10; aa5 15:30 BP 146 / 86; Pulse 64; Resp 16; Pulse Ox 99% on R/A; hb 12:24 Body Mass Index 24.94 (85.73 kg, 185.42 cm) vg1 MDM: 12:26 Patient medically screened. rn 14:57 Differential diagnosis: ocular migraine, headache, cluster headache, arterial rn occlusion, CVA, aneurysm. Data reviewed: vital signs, nurses notes, lab test result(s), radiologic studies, CT scan, and as a result, I will discharge patient. 15:04 Counseling: I had a detailed discussion with the patient and/or guardian regarding: the rn historical points, exam findings, and any diagnostic results supporting the discharge/admit diagnosis, lab results, radiology results, the need for outpatient follow up, to return to the emergency department if symptoms worsen or persist or if there are any questions or concerns that arise at home. Special discussion: I discussed with the patient/guardian in detail that at this point there is no indication for admission to the hospital. It is understood, however, that if the symptoms persist or worsen the patient needs to return immediately for re-evaluation. Based on the history and exam findings, there is no indication for further emergent testing or inpatient evaluation. I discussed with the patient/guardian the need to see the neurologist for further evaluation of the symptoms. I discussed with the patient/guardian the need to see the primary care provider for further evaluation of the symptoms. ED course: Patient with no acute abnormality of CT head and CTA head. NO focal neuro complaints or findings. Stable vitals. Patient happy was negative and asking to go home. Care complicated by comorbidities of CAD/HTN/HLD/previous CVA. NO MRI available but with neg CTA and normal neuro exam, can dc home. No temporal tenderness to indicate temporal arteritis, although diagnosis was considered. Will dc home with pcp and neuro f/u. Return precautions given and understood.. 06/05 12:37 Order name: CBC with Diff; Complete Time: 13:42 rn 06/05 15:02 Interpretation: Abnormal. rn 06/05 12:37 Order name: Basic Metabolic Panel; Complete Time: 13:42 rn 06/05 15:02 Interpretation: Normal except: BUN 21. rn 06/05 12:37 Order name: Protime (+inr); Complete Time: 13:42 rn 06/05 12:37 Order name: Ptt, Activated; Complete Time: 13:42 rn 06/05 12:37 Order name: CT Head Brain wo Cont; Complete Time: 14:42 rn 06/05 15:03 Interpretation: No acute disease. rn 06/05 12:37 Order name: CT Head Angio; Complete Time: 14:42 rn 06/05 15:03 Interpretation: No acute disease. rn 06/05 12:37 Order name: IV Start; Complete Time: 12:56 rn Administered Medications: No medications were administered Disposition Summary: 06/05/22 15:06 Discharge Ordered Location: Home rn Problem: new rn Symptoms: have improved rn Condition: Stable rn Diagnosis - Headache rn Followup: rn - With: Private Physician - When: As needed - Reason: Recheck today's complaints, Re-evaluation by your physician Discharge Instructions: - Discharge Summary Sheet rn - General Headache Without Cause rn Forms: - Medication Reconciliation Form rn - Thank You Letter rn - Antibiotic real estate internship - Prescription Opioid Use rn Signatures: Dispatcher [employer] Robinson Barragan MD MD rn Garcia, Victoria, RN RN vg1
--- NOTE | 2022-06-05 15:06 | ER ---
Nurse's Notes [facility] Name: Chris Ramirez Age: 76 yrs Sex: Male : 1945 Arrival Date: 06/05/2022 Time: 12:11 Bed 8 Private MD: ANH ART Diagnosis: Headache Presentation: 06/05 12:20 Chief complaint: Patient states: patient stated he has a history of a blood clot in the vg1 right eye back in Jun. client stated he called Dr. Madera and he told him to come here. Coronavirus screen: Vaccine status: Patient reports receiving the 2nd dose of the covid vaccine. At this time, the client does not indicate any symptoms associated with coronavirus-19. Ebola Screen: No symptoms or risks identified at this time. The patient denies any loss of vision. Initial Sepsis Screen: Does the patient meet any 2 criteria? No. Patient's initial sepsis screen is negative. Does the patient have a suspected source of infection? No. Patient's initial sepsis screen is negative. Risk Assessment: Do you want to hurt yourself or someone else? Patient reports no desire to harm self or others. Onset of symptoms was June 02, 2022. 12:20 Method Of Arrival: Ambulatory vg1 12:20 Acuity: JACK 3 vg1 Triage Assessment: 12:25 General: Appears in no apparent distress. comfortable, Behavior is calm, cooperative, vg1 appropriate for age. Pain: Denies pain. 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 Historical: - Allergies: 12:22 No Known Allergies; vg1 - Home Meds: 12:22 amlodipine 10 mg oral tab [Active]; atorvastatin 80 mg oral tab [Active]; Metoprolol vg1 Tartrate Oral [Active]; - PMHx: 12:22 CAD; High Cholesterol; Hypertension; vg1 - PSHx: 12:22 Coronary artery bypass graft; Urolift; vg1 - Immunization history:: Client reports receiving the 2nd dose of the Covid vaccine, Flu vaccine is up to date. - Social history:: Smoking status: Patient denies any tobacco usage or history of. - Family history:: not pertinent. - Hospitalizations: : No recent hospitalization is reported. Screenin:22 [facility] ED Fall Risk Assessment (Adult) History of falling in the last 3 months, aa5 including since admission No falls in past 3 months (0 pts) Confusion or Disorientation No (0 pts) Intoxicated or Sedated No (0 pts) Impaired Gait No (0 pts) Mobility Assist Device Used No (0 pt) Altered Elimination No (0 pt) Score/Fall Risk Level 0 - 2 = Low Risk. Abuse screen: Denies threats or abuse. Nutritional screening: No deficits noted. Tuberculosis screening: No symptoms or risk factors identified. Assessment: 12:45 General: Appears comfortable, Behavior is calm, cooperative. Pain: Complains of pain in aa5 right oriental orthodox Pain currently is 0 out of 10 on a pain scale. Quality of pain is described as sharp, shooting, Pain began 2 days ago Is episodic. Neuro: Level of Consciousness is awake, alert, obeys commands, Oriented to person, place, time, situation, Wool Presser are equal bilaterally Moves all extremities. 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 . Denies weakness dizziness, paresthesias numbness headache. Cardiovascular: Heart tones S1 S2 present Rhythm is regular. Respiratory: Airway is patent Respiratory effort is even, unlabored, Respiratory pattern is regular, symmetrical. GI: No signs and/or symptoms were reported involving the gastrointestinal system. : No signs and/or symptoms were reported regarding the genitourinary system. EENT: Reports "feeling like my right eye is swollen". . Derm: Skin is pink, warm \\T\\ dry. Musculoskeletal: Range of motion: intact in all extremities. 13:41 Reassessment: Patient is alert, oriented x 3, equal unlabored respirations, skin aa5 warm/dry/pink. Pt to CT . 14:15 Reassessment: Patient appears in no apparent distress at this time. Patient and/or hb family updated on plan of care and expected duration. Pain level reassessed. Patient is alert, oriented x 3, equal unlabored respirations, skin warm/dry/pink. 15:36 Reassessment: Patient appears in no apparent distress at this time. Patient and/or hb family updated on plan of care and expected duration. Pain level reassessed. Patient is alert, oriented x 3, equal unlabored respirations, skin warm/dry/pink. Vital Signs: 12:24 BP 159 / 86; Pulse 78; Resp 18 S; Temp 98.4(TE); Pulse Ox 99% on R/A; Weight 85.73 kg vg1 (R); Height 6 ft. 1 in. (185.42 cm) (R); Pain 0/10; 13:18 BP 148 / 88; Pulse 65; Resp 16 S; Pulse Ox 99% on R/A; Pain 0/10; aa5 15:30 BP 146 / 86; Pulse 64; Resp 16; Pulse Ox 99% on R/A; hb 12:24 Body Mass Index 24.94 (85.73 kg, 185.42 cm) vg1 ED Course: 12:11 Patient arrived in ED. am2 12:11 ANH ART is Private Physician. am2 12:22 Triage completed. vg1 12:26 Robinson Segal MD is Attending Physician. rn 12:39 Windy Jhaveri, YEISON is Primary Nurse. aa5 12:45 Patient has correct armband on for positive identification. Bed in low position. Call aa5 light in reach. Side rails up X 1. Pulse ox on. NIBP on. 12:56 Protime (+inr) Sent. em1 12:56 Ptt, Activated Sent. em1 12:56 Basic Metabolic Panel Sent. em1 12:56 CBC with Diff Sent. em1 12:56 Initial lab(s) drawn, by in, sent to lab. Inserted saline lock: 20 gauge in right em1 antecubital area, using aseptic technique. Blood collected. 13:02 Arm band placed on. hb 13:58 CT Head Brain wo Cont In Process Unspecified. EDMS 13:58 CT Head Angio In Process Unspecified. EDMS 15:37 No provider procedures requiring assistance completed. IV discontinued, intact, hb bleeding controlled, No redness/swelling at site. Administered Medications: No medications were administered Medication: 15:37 VIS not applicable for this client. hb Outcome: 15:06 Discharge ordered by . rn 15:37 Discharged to home ambulatory. hb 15:37 Condition: stable 15:37 Discharge instructions given to patient, Instructed on discharge instructions, follow up and referral plans. Demonstrated understanding of instructions, follow-up care, medications. 15:38 Patient left the ED. hb Signatures: Dispatcher [employer] Robinson Barragan MD MD rn Shahzad Lee em1 Windy Jhaveri RN RN aa5 Ashley Rob, RN RN Lulú Blank am2 Krystal Boggs RN RN vg1
[2022-06-05 15:55] VITALS: TEMP 98.4; O2SAT 99
[2022-06-05 16:07] VITALS: BP 146/86
== END 2022-06-05 15:38 | disposition home or self-care (01) ==
LOC: ER 12:07
DX: R51.9 Headache, unspecified (principal); I10 Essential (primary) hypertension; Z95.1 Presence of aortocoronary bypass graft
CPT/HCPCS: 85025; 80048; 36415; 85610; 85730; 70450; 70496; 99284; Q9967

== ENCOUNTER 2023-10-04 07:31 | Day surgery (SDC) | payer OTHER ==
[2023-09-21 15:57] LABS: Absolute Basophils 0.1 K/uL (0-0.5); Absolute Eosinophils 0.2 K/uL (0-0.5); Absolute Lymphocytes (CBC) 2.1 K/uL (0.7-4.9); Absolute Neutrophil 5.9 K/uL (1.8-8.0); Basophils % 0.8 % (0-1.3); Hematocrit 40.7 % (39.6-49.0); Hemoglobin 13.7 g/dL (13.6-17.9); Lymphocytes % 22.7 % (15.3-44.8); MCH 30.5 pg (27.0-35.0); MCHC 33.7 g/dL (32.0-36.0); MCV 90.5 fL (80-100); MPV 8.4 fL (7.6-11.3); Monocytes % 10.8 % (3.3-12.3); Neutrophils % 63.7 % (41.7-73.7); Platelets 275 thou/uL (152-406); Red Cell Distribution Width 14.3 % (12.1-15.2)
[2023-09-21 16:05] LABS: PT Prothrombin Time 11.3 SECONDS (9.5-12.5); Protime INR 1.03
[2023-09-21 16:17] LABS: Anion Gap 10.8 mEq/L (5.0-15.0); Potassium 4.8 mEq/L (3.5-5.1)
--- NOTE | 2023-09-21 17:52 | RAD REPORT ---
EXAM DESCRIPTION: RAD - Chest Pa And Lat (2 Views) - 09/21/2023 3:32 pm CLINICAL HISTORY: pre op for day surgery. Hypertension COMPARISON: Chest Single View dated 07/11/2021; Chest Pa And Lat (2 Views) dated 03/25/2021; ABDOMEN 1 VIEW KUB dated 07/13/2012 TECHNIQUE: PA and lateral views of the chest were obtained. FINDINGS: The lungs are clear. Heart size is normal and central vasculature is within normal limits, again with sequelae of CABG. No pleural effusion or pneumothorax seen. No acute bony finding noted. IMPRESSION: No acute cardiopulmonary process.
--- NOTE | 2023-09-22 16:43 | EKG ---
Test Date: 2023-09-21 Test Time: 15:21:28 Table Filler: SHAHLA MEASUREMENT RESULTS: Intervals: Rate: 57 NE: 168 QRSD: 98 QT: 418 QTc: 406 [place]: P: 16 NE: 168 QRS: -19 T: 23 INTERPRETIVE STATEMENTS: Sinus bradycardia Otherwise normal ECG Compared to ECG 07/11/2021 20:06:38 Sinus rhythm no longer present Electronically Signed On 09-22-23 16:41:46 CDT by Ward Mayers
[2023-10-04] MEDS ORDERED: Gentamicin Inj 160 MG in NA CHLORIDE 0.9% 100 ML IV ONE (08:00)
[2023-10-04] MEDS: Ringers Lactate 1,000 ML IV ONE (08:13)
[2023-10-04] MEDS ORDERED: NA CHLORIDE 0.9% 50 ML ONE ×2 (08:17→08:20)
[2023-10-04] MEDS: CEFEPIME 1 GM/VIAL ONE (08:25)
[2023-10-04] MEDS ORDERED: ONDANSETRON 4 MG/2 ML VIAL ONE (09:27)
[2023-10-04] MEDS ORDERED: FENTANYL CITR 100 MCG/2 ML ONE (09:27)
[2023-10-04] MEDS ORDERED: propofoL 200 MG/20 ML VIAL IV ONE (09:27)
[2023-10-04] MEDS ORDERED: EPHEDRINE SULF 50 MG/ML VIAL ONE (09:35)
[2023-10-04] MEDS ORDERED: dexAMETHasone 10 MG/ML VIAL ONE (09:35)
[2023-10-04] MEDS ORDERED: GLYCOPYRROLATE 0.2 MG/ML SYR ONE (10:01)
[2023-10-04] MEDS ORDERED: CODEINE 30MG/APAP 300MG TAB PO PRN (10:33)
[2023-10-04] MEDS: PHENAZOPYRIDINE 100MG TAB PO ONE (11:40)
[2023-10-04] MEDS ORDERED: PHENAZOPYRIDINE 100MG TAB PO ONE (11:43)
[2023-10-04 11:55] VITALS: BP 128/65; TEMP 97; O2SAT 98
--- NOTE | 2023-10-04 13:39 | OP ---
Surgeon: FRANCISCO J GALDAMEZ Preoperative Diagnoses: 1.Recurrent urinary tract infection. 2.Intravesical foreign body/UroLift capsular tab. 3.History of prostatic urethral lift. Postoperative Diagnoses: 1.Recurrent urinary tract infection. 2.Intravesical foreign body/UroLift capsular tab. 3.History of prostatic urethral lift. Principal Procedures: 1.Cystoscopy. 2.Transurethral resection of the bladder neck. 3.Removal of foreign body intravesically intruding. Indication For Procedure: Mr. Ramirze is a 78-year-old gentleman who underwent a UroLift with excellen t holiness of his ability to void, but with recurrent urinary tract infections identified. While he was not symptomatic of these infections, they were identified repetitively on analyses; so I inves tigated cystoscopically and identified the presence of an intraluminally projecting capsular tab from the UroLift at the patient's right anterolateral bladder neck which may potentially harbor the infec tion. As a result, I counseled on the recommendation to remove that foreign body and decrease his ri sk of future infection. Procedure Note In Detail: The patient was consented in the preoperative holding area before being tr ansferred to the operative suite where general anesthesia was induced. He was given cefepime 1 g and gentamicin 240 mg IV antimicrobial prophylaxis, and pneumo boots were provided for DVT prophylaxis. He was placed in the lithotomy position, padded and secured to the table appropriately, and his pilar kevin were prepped with Hibiclens before being draped in standard fashion. The case was begun using a 22-Malawian rigid cystoscope to traverse the urethra and into the bladder with ease. When navigating through the prostatic channel, while a nice continuous anterior channel was indeed visible, there wa s some intraluminal projecting tissue largely emanating from the patient's left lateral wall, potenti ally causing a slight degree of ongoing obstruction. Upon entry into the bladder, I decompressed of fluid and urine and then refilled the bladder with sterile saline surveying it in its entirety. As h ad been observed flexible cystoscopically, when I switched to a 70 degree lens, I was able to appreci ate the capsular tab intermittently exposed within the urethral lumen, but seeming to contract and em bedded itself within the tissue there at the bladder neck. As a result, I switched and attempted to use an alligator grasper to remove that implant, but given its position, it was impossible to do usin g the grasper. As a result, I ended up employing a 26-Malawian resectoscope sheath and a monopolar loo p. I then switched to glycine irrigation and utilizing a cautery setting of 170 cut and 70 coag, I q uickly resected and removed the intruding capsular tab. Once it was exposed after resecting the tiss ue overlying it, I was able to use biopsy forceps to grasp it and remove it intact. I then surveyed the remainder of the bladder neck, and where there was a slight degree of intraluminally projecting t issue emanating from the left lateral wall at the bladder neck, I also resected this to ensure patenc y of the anterior channel but also to minimize the risk of stenosis and bladder neck contracture. Ca reful pinpoint fulguration was performed for any and all bleeding vessels while the bladder was decom pressed, and while when I surveyed the channel, I determined that he might benefit from an additional 1, maybe 2 additional UroLift implants, largely placed on the patient's left side as had been identi fied initially, since he was not pre-approved for that and not explicitly consented for the additiona l treatment, this additional step was not taken. As a result, I removed the resectoscope and replace d a new 18-Malawian coude tip Baker catheter into his bladder with ease with clear and slightly pink ur ine draining. This was connected to a leg bag, and he was taken out of the lithotomy position. He w as then awakened from general anesthesia before being transferred to a stretcher. He was then transf erred to the recovery room in good condition. Complications: None. Discharge Disposition: He will be given an opportunity to void before being discharged from the [facility] very room, and if successful, he will go home without a catheter. Otherwise, the urethral catheter w ill be reinserted and he will be asked to remove it tomorrow morning at 7 a.m. He subsequently will undergo voiding trial until 1 p.m. and is instructed to notify us if he is unable to void by then. S ubsequent followup should be established electively within the next few months, interval assessment of any sign of recurrent infection and his ability to empty completely. DELANEY/MODL Voice ID: [id number] Report ID: [id number]
[2023-10-04] MEDS ORDERED: LIDOCAINE JELLY 2% 5 ML SYRINGE TOP ONE (13:56)
== END 2023-10-04 15:35 | disposition home or self-care (01) ==
LOC: OR 07:31
PROVIDERS: ATTEND Urology
PROC: 0TBC8ZZ Excision of Bladder Neck, Via Natural or Artificial Opening Endoscopic (ICD-10-PCS; principal; 2023-10-04 09:00)
PROC: 0TCC8ZZ Extirpation of Matter from Bladder Neck, Via Natural or Artificial Opening Endoscopic (ICD-10-PCS; 2023-10-04 09:00)
DX: T19.1XXD Foreign body in bladder, subsequent encounter (principal); N40.1 Benign prostatic hyperplasia with lower urinary tract symptoms; N32.3 Diverticulum of bladder; I10 Essential (primary) hypertension; E78.5 Hyperlipidemia, unspecified; R33.9 Retention of urine, unspecified; N36.44 Muscular disorders of urethra; Z87.440 Personal history of urinary (tract) infections
CPT/HCPCS: 93005; 87088; 85025; 87086; 80048; 36415; 85610; 71046; 52500; 52310; J2704; J1580; J3010; J1100; J2405; J7120; J0692

== ENCOUNTER 2023-10-04 20:28 | Observation (INO) | payer OTHER ==
[2023-10-04] MEDS: Ringers Lactate 1,000 ML IV ONE (21:20)
[2023-10-04] MEDS: SUCCINYLCHOLINE 20 MG/ML (10 ML) IV ONE (21:29)
[2023-10-04] MEDS ORDERED: FENTANYL CITR 100 MCG/2 ML ONE (21:32)
[2023-10-04] MEDS ORDERED: ROCURONIUM 50 MG/5 ML VIAL IV ONE (21:32)
[2023-10-04] MEDS ORDERED: propofoL 200 MG/20 ML VIAL IV ONE (21:32)
--- NOTE | 2023-10-04 21:44 | EDPHYS ---
Physician Documentation [facility] Name: Chris Ramirez Age: 78 yrs Sex: Male : 1945 Arrival Date: 10/04/2023 Time: 20:28 Bed 18 Private MD: ED Physician Reynaldo Bryant HPI: 10/03 20:30 This 78 yrs old Male presents to ER via Unassigned with complaints of Urinary sp4 Problem. 21:40 78 -year-old male presents with acute gross hematuria. Patient had Urologic surgery to sp4 remove part of the UroLift from his bladder this morning and was sent home with a three-way 22-gauge Baker catheter. Just prior to arrival patient developed gross hematuria and presents here for evaluation. Patient's urologist requested that we do bladder irrigation and he will take patient into the surgery. . Historical: - Allergies: 20:54 No Known Allergies; nj1 - PMHx: 20:54 CAD; High Cholesterol; Hypertension; nj1 - PSHx: 20:54 Coronary artery bypass graft; Urolift; nj1 - Immunization history:: Client reports receiving the 2nd dose of the Covid vaccine. - Infectious Disease History:: Denies. - Social history:: Smoking status: Patient denies any tobacco usage or history of. - Family history:: not pertinent. ROS: 21:43 Constitutional: Negative for fever, chills, and weight loss, : Positive for gross sp4 hematuria, positive for indwelling three-way Baker catheter 21:43 All other systems are negative, Exam: 21:43 Constitutional: This is a well developed, well nourished patient who is awake, alert, sp4 and in no acute distress. Head/Face: Normocephalic, atraumatic. Eyes: Pupils equal round and reactive to light, extra-ocular motions intact. Lids and lashes normal. Conjunctiva and sclera are not injected. Cornea within normal limits. Periorbital areas with no swelling, redness, or edema. ENT: Nares patent. No nasal discharge, no septal abnormalities noted. Tympanic membranes are normal and external auditory canals are clear. Oropharynx with no redness, swelling, or masses, exudates, or evidence of obstruction, uvula midline. Mucous membranes moist. Neck: Trachea midline, no thyromegaly or masses palpated, and no cervical lymphadenopathy. Supple, full range of motion without nuchal rigidity, or vertebral point tenderness. Chest/axilla: Normal chest wall appearance and motion. Nontender with no deformity. No lesions are appreciated. Cardiovascular: Regular rate and rhythm with a normal S1 and S2. No gallops, murmurs, or rubs. Normal PMI, no JVD. No pulse deficits. Respiratory: Lungs have equal breath sounds bilaterally, clear to auscultation and percussion. No rales, rhonchi or wheezes noted. No increased work of breathing, no retractions or nasal flaring. Abdomen/GI: Soft, with normal bowel sounds. No distension or tympany. No guarding or rebound. No evidence of tenderness throughout. Back: No spinal tenderness. No costovertebral tenderness. Male : Patient has indwelling three-way Baker catheter with gross hematuria present in the catheter catheter seems to be draining. Skin: Warm, dry with normal turgor. Normal color with no rashes, no lesions, and no evidence of cellulitis. MS/ Extremity: Pulses equal, no cyanosis. Neurovascular intact. Full, normal range of motion. Neuro: Awake and alert, GCS 15, oriented to person, place, time, and situation. Cranial nerves II-XII grossly intact. Motor strength 5/5 in all extremities. Sensory grossly intact. Psych: Awake, alert, with orientation to person, place and time. Behavior, mood, and affect are within normal limits Vital Signs: 20:49 BP 141 / 77; Pulse 100; Resp 18; Temp 97.3; Pulse Ox 97% on R/A; Weight 82.1 kg; Height nj1 6 ft. 1 in. ; 20:49 Body Mass Index 23.88 (82.10 kg, 185.42 cm) nj1 [place] Coma Score: 21:43 Eye Response: spontaneous(4). Motor Response: obeys commands(6). Verbal Response: sp4 oriented(5). Total: 15. MDM: 20:32 Patient medically screened. sp4 21:43 Differential Diagnosis altered mental status, sepsis, flu. Data reviewed: vital signs, sp4 nurses notes, lab test result(s). ED course: Dr. Hilliard with urology came in and took patient to the operating room.. Patient will be admitted for obs. 10/03 20:30 Order name: Basic Metabolic Panel sp4 10/03 20:30 Order name: CBC with Diff sp4 10/03 20:30 Order name: LFT's sp4 10/03 20:30 Order name: PT-INR sp4 10/03 20:30 Order name: IV Saline Lock; Complete Time: 21:30 sp4 10/03 20:30 Order name: Labs collected and sent; Complete Time: 21:30 sp4 10/03 20:30 Order name: O2 Per Protocol; Complete Time: 21:04 sp4 10/03 20:30 Order name: O2 Sat Monitoring; Complete Time: 21:04 sp4 Administered Medications: No medications were administered Disposition Summary: 10/04/23 21:43 Hospitalization Ordered Notes: Hospitalization Status: Observation sp4 Provider: Fransisco Hilliard sp4 Condition: Stable sp4 Problem: new sp4 Symptoms: have improved sp4 Bed/Room Type: Standard sp4 Location: DAY SURGERY OTHER(10/04/23 21:54) jb4 Room Assignment: DSO-(10/04/23 21:54) 4 Diagnosis - Gross hematuria sp4 - Acute bleeding into the Baker catheter sp4 Discharge Instructions: - Discharge Summary Sheet vk Forms: - Medication Reconciliation Form sp4 - Leadership Thank You Letter sp4 - SBAR form vk Signatures: Dispatcher [employer] Cabrera Castro, RN RN jb4 Reynaldo Bryant MD MD sp4 Risa Owen RN RN nj1 Corrections: (The following items were deleted from the chart) 21:40 20:30 Cardiac monitoring ordered. sp4 jb4 21:40 20:55 Baker ordered. sp4 jb4 21:54 21:43 Telemetry/MedSurg (observation) sp4 jb4 21:54 21:43 sp4 jb4
--- NOTE | 2023-10-04 21:44 | ER ---
Nurse's Notes [facility] Name: Chris Ramirez Age: 78 yrs Sex: Male : 1945 Arrival Date: 10/04/2023 Time: 20:28 Bed 18 Private MD: Diagnosis: Gross hematuria;Acute bleeding into the Baker catheter Presentation: 10/03 20:49 Chief complaint: Patient states: Had procedure done by Dr Hilliard, urologist, today. nj1 Urinating blood. 20:49 Coronavirus screen: Vaccine status: Patient reports receiving the 2nd dose of the covid nj1 vaccine. Ebola Screen: Patient denies travel to an Ebola-affected area in the 21 days before illness onset. Initial Sepsis Screen: Does the patient meet any 2 criteria? HR > 90 bpm. No. Patient's initial sepsis screen is negative. Does the patient have a suspected source of infection? No. Patient's initial sepsis screen is negative. Risk Assessment: Do you want to hurt yourself or someone else? Patient reports no desire to harm self or others. Onset of symptoms was October 04, 2023. 20:49 Method Of Arrival: Wheelchair nj 20:49 Acuity: JACK 3 nj1 Historical: - Allergies: 20:54 No Known Allergies; nj1 - PMHx: 20:54 CAD; High Cholesterol; Hypertension; nj1 - PSHx: 20:54 Coronary artery bypass graft; Urolift; nj1 - Immunization history:: Client reports receiving the 2nd dose of the Covid vaccine. - Infectious Disease History:: Denies. - Social history:: Smoking status: Patient denies any tobacco usage or history of. - Family history:: not pertinent. Assessment: 21:29 Reassessment: Pt taken by surgery staff to OR. tl4 Vital Signs: 20:49 BP 141 / 77; Pulse 100; Resp 18; Temp 97.3; Pulse Ox 97% on R/A; Weight 82.1 kg; Height nj1 6 ft. 1 in. ; 20:49 Body Mass Index 23.88 (82.10 kg, 185.42 cm) nj1 [place] Coma Score: 21:43 Eye Response: spontaneous(4). Motor Response: obeys commands(6). Verbal Response: sp4 oriented(5). Total: 15. ED Course: 20:29 Patient arrived in ED. im 20:30 Reynaldo Bryant MD is Attending Physician. sp4 20:54 Triage completed. nj1 20:55 Arm band placed on. nj1 21:29 Initial lab(s) drawn, by me, sent to lab. Inserted saline lock: 20 gauge in left upper tl4 arm, using aseptic technique. Blood collected. 21:30 Basic Metabolic Panel Sent. tl4 21:30 CBC with Diff Sent. tl4 21:30 LFT's Sent. tl4 21:30 PT-INR Sent. tl4 21:43 Fransisco Hilliard MD is Hospitalizing Provider. sp4 Administered Medications: No medications were administered Outcome: 21:30 Admitted to OR accompanied by nurse, family with patient, via stretcher, tl4 21:30 Condition: stable 21:30 Instructed on the need for admit, 21:43 Decision to Hospitalize by Provider. sp4 21:54 Patient left the ED. jb4 Signatures: Cabrera Tuttle RN RN jb4 Reynaldo Bryant MD MD sp4 Risa Owen, RN RN nj1 Genie Stout im Raymond Burks, RN RN tl4 Corrections: (The following items were deleted from the chart) 20:55 20:49 Pulse 100bpm; Resp 18bpm; Pulse Ox 97% RA; Temp 97.3F; 82.1 kg; Height 6 ft. 1 nj1 in.; BMI: 23.8; nj1
[2023-10-04] MEDS ORDERED: MIDAZOLAM HCL 2 MG/2 ML INJ ONE (22:04)
[2023-10-04 22:29] LABS: Absolute Lymphocytes (CBC) 0.7 K/uL (0.7-4.9); Absolute Monocytes 0.4 K/uL (0.1-1.3); Absolute Neutrophil 13.2 K/uL (1.8-8.0); Basophils % 0.1 % (0-1.3); Hematocrit 36.9 % (39.6-49.0); Hemoglobin 12.5 g/dL (13.6-17.9); Lymphocytes % 4.6 % (15.3-44.8); MCH 30.5 pg (27.0-35.0); MCHC 33.9 g/dL (32.0-36.0); MCV 90.1 fL (80-100); MPV 8.4 fL (7.6-11.3); Neutrophils % 92.3 % (41.7-73.7); Platelets 322 thou/uL (152-406); Red Cell Distribution Width 14.1 % (12.1-15.2)
[2023-10-04 22:42] LABS: Albumin 3.3 g/dL (3.4-5.0); Anion Gap 14.3 mEq/L (5.0-15.0); Bilirubin Direct 0.2 mg/dL (0-0.2); Bilirubin Indirect, Calculated 0.5 mg/dL (0.2-0.8); Bilirubin Total 0.7 mg/dL (0.2-1.0); Globulin 3.3 g/dL (2.3-3.5); Potassium 4.3 mEq/L (3.5-5.1); Protein, Total 6.6 g/dL (6.4-8.2)
[2023-10-04 22:51] LABS: PT Prothrombin Time 13.2 SECONDS (9.5-12.5); Protime INR 1.21
[2023-10-04] MEDS ORDERED: NACL 0.9% IRRG SOLN 1000 ML IRR PRN (23:14)
[2023-10-04] MEDS ORDERED: ONDANSETRON 4 MG/2 ML VIAL IV PRN (23:14)
[2023-10-04] MEDS ORDERED: PHENAZOPYRIDINE 100MG TAB PO PRN (23:14)
[2023-10-04] MEDS ORDERED: SODIUM CHL 0.9% IRR SOLN 2000 ML IRR SCH (23:14)
[2023-10-04] MEDS ORDERED: HYDROCODONE/APAP 5/325 MG TAB PO PRN (23:14)
--- NOTE | 2023-10-04 23:20 | P.OP ---
Date of Service: 10/04/23 Preoperative diagnoses: Refractory gross hematuria Clot urinary retention s/p removal of capsular tab/foreign body intravesically intruding 10/04/2023 h/o UroLift Postoperative diagnoses: Same Principal procedures: Cystoscopy with clot evacuation Fulguration of bleeding at the bladder neck and prostatic urethra Indication for procedure: Mr. Rogers is a 78-year-old gentleman who previously underwent a UroLift with intravesically intruding implant at the right apical portion of the bladder neck associated with a persistent Pseudomonas UTI. While after evacuating his bladder of a significant component of retained urine, it seemed we were able to clear the Pseudomonas infection, a capsular tab was noted intravesically intruding and thus I recommended it be removed to prevent issues with chronic or recurrent infection. This was done earlier today but required resection in order to do so as it was somewhat embedded within the tissue though exposed, and unfortunately not able to be grasped using a grasper alone. That area then began to bleed postoperatively and upon discharge home, resulting in efforts to irrigate and remove the clot without ability to quell the gross hematuria. Procedure note: Patient was consented in the preoperative holding area before being transferred to the operative suite where general anesthesia was induced. He had previously been given cefepime and gentamicin IV antimicrobial prophylaxis, and this was adequate to cover him through this evening's procedure. An additional dose of the cefepime will be given tomorrow morning prior to his discharge anticipated. He was placed in the lithotomy position, padded and secured to the table appropriately, and his genitalia was prepped with Hibiclens before being draped in standard fashion. The case was begun by using a 26 [place] resectoscope sheath and a visual obturator to traverse the urethra and the navigate via the prostatic urethra ultimately entering the bladder. Significant intraluminal clot was encountered obscuring visualization; so I immediately began with Ilich evacuation of a large burden of clot. Approximately 300 to 500 cc of clot was removed by my estimation requiring multiple rounds of Ilich evacuation. Ultimately, I was able to visualize the lumen of the bladder and surveyed in its entirety. I identified the source of bleeding to be the site of prior resection in the right anterolateral bladder neck, and so I utilized a bipolar loop and carefully and copiously fulgurated the entirety of the area that was previously resected. I continued to fulgurate additional tissue within the area of prior resection at the bladder neck including on the left side as well as any prostatic urethral bleeding until the area was completely hemostatic. I thus decompressed his bladder completely and with no pressure of fluid inside, again search for any oozing vessels fulgurating any even minimal capillary ooze to ensure absolutely hemostatic. Once I was confident of that, I then retrograde filled his bladder and removed the resectoscope. I then utilized a catheter guide to carefully place a 24 [place] three-way Baker catheter with ease. 30 cc of sterile water was placed in the balloon, and the catheter was placed to moderate traction. It was left to very slow drip CBI in the return of urine was crystal clear. He was then taken out of the lithotomy position, awakened from general anesthesia, transferred to a stretcher, and then transferred to the recovery room in good condition. Complications: None Discharge disposition: We will observe him overnight and wean CBI to off as long as his urine remains light pink to clear over the course of about an hour of observation. Will get a dose of cefepime in the morning, and will be discharged thereafter as long as his urine is appropriately clear. We will allow him to keep the urethral Baker catheter for at least 48 hours to allow a period of bladder rest, and he will receive a dose of Ditropan as an inpatient. Voiding trial may be held in the urology clinic on Tuesday. Subsequent follow-up may be established intervally, as per prior operative note, to ensure clearance of the recurrent/persistent Pseudomonas UTI.
[2023-10-04 23:45] VITALS: O2SAT 99
[2023-10-04] MEDS: OXYBUTYNIN ER 5 MG TAB PO SCH (23:55)
[2023-10-04] MEDS: NA CHLORIDE 0.9% 1,000 ML IV SCH (23:56)
[2023-10-05 00:36] LABS: Band Neutrophils 7 % (0-1); Differential Total Cells Count 100; Lymphocytes 7 % (15-42); Monocytes 1 % (0-10); Segmented Neutrophils 85 % (40-80)
[2023-10-05 00:37] LABS: Blood Morphology Comment NOT SEEN (NOT SEEN); Platelet Estimate ADEQ
[2023-10-05 01:00] VITALS: BMI 23.8
[2023-10-05 06:06] VITALS: BP 104/66; TEMP 97.3
[2023-10-05 07:20] LABS: Absolute Lymphocytes (CBC) 1.1 K/uL (0.7-4.9); Absolute Monocytes 1.2 K/uL (0.1-1.3); Basophils % 0.1 % (0-1.3); Hematocrit 31.2 % (39.6-49.0); Hemoglobin 10.7 g/dL (13.6-17.9); Lymphocytes % 7.1 % (15.3-44.8); MCHC 34.4 g/dL (32.0-36.0); MCV 90.1 fL (80-100); MPV 8.1 fL (7.6-11.3); Monocytes % 7.9 % (3.3-12.3); Neutrophils % 84.9 % (41.7-73.7); Platelets 267 thou/uL (152-406); RBC Red Blood Cell Count 3.46 M/uL (4.33-5.43); Red Cell Distribution Width 14.3 % (12.1-15.2)
[2023-10-05] MEDS: CEFEPIME 1 GM in NA CHLORIDE 0.9% 100 ML IV SCH ×2 (09:00→09:43)
== END 2023-10-05 10:34 | disposition home or self-care (01) ==
LOC: ER 20:28 → 2ND 23:00
PROVIDERS: ADMIT Urology; ATTEND Urology
PROC: 0TCC8ZZ Extirpation of Matter from Bladder Neck, Via Natural or Artificial Opening Endoscopic (ICD-10-PCS; principal; 2023-10-04 22:00)
DX: N99.820 Postprocedural hemorrhage of a genitourinary system organ or structure following a genitourinary system procedure (principal); R31.0 Gross hematuria; R33.9 Retention of urine, unspecified; Z98.890 Other specified postprocedural states
CPT/HCPCS: 52001; 85025 ×2; 80048; 36415; 85610; 80076; 99285; J2704; J2250; J3010; G0378 ×3; J7120; J7030; J0692

== ENCOUNTER 2024-10-09 06:05 | Day surgery (SDC) | payer OTHER ==
--- NOTE | 2024-09-25 11:15 | RAD REPORT ---
Procedure: Chest Pa And Lat (2 Views) HISTORY: Preop for bladder surgery COMPARISON: 2023 FINDINGS: The lungs appear clear of acute infiltrate. No significant pleural effusion noted. The heart is borderline enlarged... Post surgical changes involve the chest IMPRESSION: No acute abnormality is displayed.
[2024-09-25 11:19] LABS: Absolute Basophils 0.1 K/uL (0-0.5); Absolute Eosinophils 0.1 K/uL (0-0.5); Absolute Lymphocytes (CBC) 1.7 K/uL (0.7-4.9); Absolute Monocytes 0.8 K/uL (0.1-1.3); Absolute Neutrophil 7.4 K/uL (1.8-8.0); Basophils % 1.4 % (0-1.3); Eosinophils % 1.5 % (0-4.4); Hematocrit 43.8 % (39.6-49.0); Hemoglobin 15.2 g/dL (13.6-17.9); MCH 31.2 pg (27.0-35.0); MCHC 34.8 g/dL (32.0-36.0); MCV 89.7 fL (80-100); MPV 8.8 fL (7.6-11.3); Monocytes % 7.8 % (3.3-12.3); Neutrophils % 72.3 % (41.7-73.7); Nucleated Red Blood Cells % 0.1 % (0-0); Platelets 257 thou/uL (152-406); RBC Red Blood Cell Count 4.88 M/uL (4.33-5.43); Red Cell Distribution Width 14.8 % (12.1-15.2)
[2024-09-25 11:22] LABS: PT Prothrombin Time 11.6 SECONDS (10-13.0); Protime INR 1.02
[2024-09-25 11:25] LABS: Specific Gravity 1.017 (1.005-1.030); Sqamous Epithelial <5 /HPF (None Seen); Urine Bacteria None Seen /HPF (<20); Urine Bilirubin NEGATIVE (Negative); Urine Blood 3+ (OVER) (Negative); Urine Clarity Extremely Turbid (Clear); Urine Color Yellow (Yellow); Urine Culture Reflex Order REFLEXED; Urine Glucose NEGATIVE (Negative); Urine Ketones NEGATIVE (Negative); Urine Microscopic Reflex YN ORDER UMIC; Urine Mucus Slight /HPF (None Seen); Urine Nitrite NEGATIVE (Negative); Urine Protein TRACE (Negative); Urine RBC >50 /HPF (None Seen); Urine Urobilinogen Normal (Normal); Urine WBC >50 /HPF (<5); Urine WBC Clump Occasional /HPF (None Seen)
[2024-09-25 11:38] LABS: Anion Gap 8.2 mEq/L (5.0-15.0); Potassium 4.2 mEq/L (3.5-5.1)
--- NOTE | 2024-09-26 12:36 | EKG ---
Test Date: 2024-09-25 Test Time: 10:47:22 Medical Physics Researcher: [place]ISSET MEASUREMENT RESULTS: Intervals: Rate: 59 ND: 168 QRSD: 102 QT: 410 QTc: 405 [place]: P: 34 ND: 168 QRS: 5 T: 41 INTERPRETIVE STATEMENTS: Sinus bradycardia Otherwise normal ECG Compared to ECG 09/21/2023 15:21:28 No significant changes Electronically Signed On 09-26-24 12:35:51 CDT by Brenton Wan
[2024-10-09] MEDS: Ringers Lactate 1,000 ML IV ONE (06:25)
[2024-10-09] MEDS ORDERED: propofoL 200 MG/20 ML VIAL IV ONE (07:14)
[2024-10-09] MEDS ORDERED: FENTANYL CITR 100 MCG/2 ML ONE (07:14)
[2024-10-09] MEDS ORDERED: ONDANSETRON 4 MG/2 ML VIAL ONE (07:14)
[2024-10-09] MEDS ORDERED: LIDOCAINE 1% MPF 5 ML VIAL ONE (07:15)
[2024-10-09] MEDS: CEFAZOLIN SODIUM 2 GM/VIAL ONE (07:37)
[2024-10-09 08:53] VITALS: O2SAT 100
[2024-10-09] MEDS ORDERED: CODEINE 30MG/APAP 300MG TAB PO PRN (09:24)
[2024-10-09] MEDS ORDERED: PHENAZOPYRIDINE 100MG TAB PO ONE (09:24)
[2024-10-09 09:53] VITALS: BP 139/68; TEMP 97.8
[2024-10-09] MEDS: H2O FOR IRR,STER 1,000 ML IRR ONE (10:05)
--- NOTE | 2024-10-09 12:17 | P.OP ---
Date of Service: 10/09/24 Preoperative diagnoses: BPH with LUTS Large volume incomplete emptying Detrusor sphincter dyssynergia H/o recurrent UTI Postoperative diagnoses: BPH with LUTS Large volume incomplete emptying Detrusor sphincter dyssynergia H/o recurrent UTI Approximately 3 mm bladder calculus Principal procedures: Cystoscopy with removal of the bladder calculus/foreign body UroLift with 7 implants placed Insertion of 18 [place] urethral Baker catheter Indications for procedure: 79-year-old gentleman with obstructive LUTS found to be secondary to BPH but also a degree of detrusor sphincter dyssynergia. He underwent UroLift followed by Axonics percutaneous trial with improvement in his LUTS and initially improvement in his emptying, but because of the significant improvement in his LUTS, he elected not to proceed with a permanent implantation of the Axonics device. Instead, he wished to observe his symptoms, which never became more bothersome, but the degree of retained urine was significant. Ultrasonography revealed absence of hydronephrosis, but given the large volume retention and recurrent infections identified, surgical therapy to relieve residual prostatic urethral obstruction was recommended. He agreed. Procedure note: The patient was consented in the preoperative holding area before being transferred to the operative suite where general anesthesia was induced. He was given Ancef 2 g IV antimicrobial prophylaxis, and pneumoboots were provided for DVT prophylaxis. He was placed in the lithotomy position, padded and secured to the table appropriately. His genitalia was prepped with Hibiclens and he was draped in standard fashion. The case was begun using the 20 [place] UroLift sheath and a visual obturator to traverse the urethra and ultimately anterior his bladder with relative ease. The bladder was decompressed of a large volume of urine and then refilled with sterile saline and surveyed. It was markedly trabeculated throughout with numerous cellules and small diverticuli, and posteriorly, there was a approximately 3 mm bladder calculus identified. I irrigated and ultimately removed the calculus via the sheath of the cystoscope before ultimately placing a UroLift delivery device via the sheath into his bladder and exchanged for the visual obturator. Then using the first implant targeted at the patient's bladder neck laterally on the left approximately 2 cm distal to the bladder neck opening, I targeted a nodule of BPH tissue that was intraurethrally intruding. I angled the scope against the tissue in that location at about the 3 o'clock position angled about 30 degrees upward, and I pulled the trigger once delivering the needle through the substance of the prostate. I then compressed the tissue maximally to ensure the tip of the needle exited the capsule before pulling the trigger a second time delivering the capsular tab and partially retracting the needle. A third pull of the trigger did completely retract the needle and begin to tension the suture. I then advanced the scope back toward the midline and 2 to 3 mm toward the bladder neck opening until the white line of the monofilament was centered in the delivery bay. At this point, I pulled the trigger a fourth time delivering the urethral end piece which did beautifully retract the tissue in that location. I then surveyed the channel created and elected to place a second implant also on the patient's left side, this time near the apex at the level of the verumontanum. Similarly, targeting tissue at the 3 o'clock position, I went through the steps above delivering an implant which did beautifully lateralized the tissue in that location. I then again surveyed the channel created using a visual obturator, and at this point, the majority of the tissue was emanating from the patient's right lateral wall. As a result, I targeted tissue at the bladder neck about 2 cm distal to the bladder neck opening on the right side at the 9 o'clock position. After lateralizing the tissue there, I placed a fourth implant and the level of the verumontanum on the right side again at the 9 o'clock position. I then surveyed the channel created, and this did reveal some intrusion of adenomatous tissue from the apical aspect of the prostate overhanging on both the left and the right side above the implants that had just been placed. As a result, I placed a 5th implant more proximal near the bladder neck opening and more superior above the prior implant on the left side to elevate the tissue in that location, which was done nicely. I again used the visual obturator to survey the channel, and at this point, I elected to place an implant between the mid gland and the base of the prostate more anteriorly/superiorly on the right side. After elevating that tissue using a sixth implant, I again surveyed the channel created. At this point, while there was slight intrusion of some tissue in the mid zone of the prostate from the left side, the predominance of the remaining intrusion seem to be coming from the mid apical aspect on the right side anteriorly/superiorly. As a result, I elected to use the seventh and final implant targeting that tissue elevating the tissue at around the 10 to 11 o'clock position on the right side, which did create a anterior channel visible from the verumontanum all the way into the bladder with some mild intrusion from the patient's left mid zone of the prostate that was not definitively obstructive. I made this observation using a visual obturator with the scope decompressing. I thus retrograde filled his bladder before placing an 18 [place] Baker catheter with ease via his urethra into the bladder. 20 cc of sterile water was placed in the balloon. The catheter was placed because of his large volume incomplete emptying and the fact that it would take several hours and likely be very equivocal in terms of his voiding ability so that we might determine whether he was safe to discharge him with or without the catheter. The catheter was connected to a leg bag and he was taken out of the lithotomy position. He was then awakened from general anesthesia before being transferred to a stretcher. He was then transferred to the recovery room in good condition. Complications: None Discharge disposition: He will be given a voiding trial in the recovery room and if successful, he will be discharged without the catheter. If he is unsuccessful and a catheter is replaced, he was instructed to come by the office tomorrow between 1 and 3 PM after taking the catheter out at home at 7 AM sharp. Subsequent follow-up should be established in about 1 month per routine. Findings and Operative Technique
== END 2024-10-09 10:40 | disposition home or self-care (01) ==
LOC: OR 06:05
PROVIDERS: ATTEND Urology
PROC: 0T7D8DZ Dilation of Urethra with Intraluminal Device, Via Natural or Artificial Opening Endoscopic (ICD-10-PCS; principal; 2024-10-09 07:30)
DX: N40.1 Benign prostatic hyperplasia with lower urinary tract symptoms (principal); R39.14 Feeling of incomplete bladder emptying; N36.44 Muscular disorders of urethra; N21.0 Calculus in bladder; Z87.440 Personal history of urinary (tract) infections
CPT/HCPCS: 52441; 52442 ×6; 93005; 87088; 85025; 81001; 87086; 80048; 36415; 85610; 71046; J2704; J2003; J3010; J2405; J7120